=== PATIENT | male | born 1965 | race African-American/Black ===

== ENCOUNTER 2019-07-17 22:00 | Emergency (ER) | payer BC ==
[2019-07-17 22:10] VITALS: TEMP 98.6; BMI 34.9
[2019-07-17] MEDS ORDERED: SODIUM CHLORIDE 1,000 ML IV STA (22:31)
--- NOTE | 2019-07-17 22:43 | PDOC ---
History of Present Illness - General Chief Complaint: Pain Stated Complaint: ABD PAIN Time Seen by Provider: 07/17/19 22:18 History Source: Patient Exam Limitations: No Limitations Past History - Past Medical History Allergies/Adverse Reactions: Allergies Allergy/AdvReac Type Severity Reaction Status Date / Time No Known Allergies Allergy Verified 07/17/19 22:10 COPD: No Diabetes: Yes HTN: Yes - Surgical History Appendectomy: Yes - Psycho Social/Smoking Cessation Hx Smoking History: Never smoked *Physical Exam - Vital Signs Last Vital Signs Temp Pulse Resp BP Pulse Ox 98.6 F 63 18 138/72 98 07/17/19 22:08 07/17/19 22:08 07/17/19 22:08 07/17/19 22:08 07/17/19 22:08 - Physical Exam General Appearance: No: Apparent Distress Respiratory/Chest: positive: Lungs Clear, Normal Breath Sounds. negative: Respiratory Distress Cardiovascular: positive: Regular Rhythm, Regular Rate, S1, S2. negative: Murmur Gastrointestinal/Abdominal: positive: Normal Bowel Sounds, Soft. negative: Tender, Distended, Guarding, Rebound Musculoskeletal: negative: CVA Tenderness Neurologic: positive: Alert ED Treatment Course - LABORATORY CBC & Chemistry Diagram: 07/17/19 23:15 07/17/19 23:15 - RADIOLOGY Radiology Studies Ordered: Category Date Time Status SPIRAL- RENAL-STONE CT [CT] Stat CT Scan 07/17/19 22:31 Ordered Medical Decision Making - Medical Decision Making 54-year-old male history of hypertension, hyperlipidemia, diabetes presents with RLQ abd pain (more along the lateral side) from today along with 2 episodes of NBNB emesis. Patient mentions he had 1-2 episodes of watery diarrhea yesterday. Today he had a little soft stool. Patient mentions he is feeling a little under the weather 4 days ago and saw his PCP to request replacement azithromycin. Today was the last dose of the antibiotic. Patient states he did not come earlier as he thought his symptoms were related to the antibiotic. However states abdominal pain is getting worse. Denies fever, shortness of breath, chest pain, dysuria, hematuria, testicular pain. Surgical history includes appendectomy Consider kidney stone Plan: Labs, IVF, spiral CT 07/17/19 22:38 Abnormal Lab Results 07/17/19 07/18/19 23:15 00:01 Anion Gap 5 L Random Glucose 115 H Total Bilirubin 1.1 H AST 133 H ALT 122 H Urine Protein 3+ H Urine Ketones Trace H Urine Blood 2+ H Labs were reviewed Slightly elevated liver enzymes noted Urine negative for infection with some trace blood noted CT showed no evidence of kidney stones; it showed normal liver; it also showed questionable gallbladder wall thickening However on exam patient with no right upper quadrant pain Patient feeling much better right now with no abdominal pain Patient advised to follow-up with his PCP regarding his liver enzymes Stable for discharge 07/18/19 01:05 Discharge - Discharge Information Problems reviewed: Yes Clinical Impression/Diagnosis: Abdominal pain Qualifiers: Abdominal location: right lower quadrant Qualified Code(s): R10.31 - Right lower quadrant pain Condition: Stable Disposition: HOME - Admission No - Additional Discharge Information Prescription Drug Monitoring Program (I-STOP) results: I-STOP not reviewed - Follow up/Referral - Patient Discharge Instructions Patient Printed Discharge Instructions: DI for Abdominal Pain-Adult Additional Instructions: Thank you for choosing [facility]. It was a pleasure taking care of you. Your lab work shows that your liver enzymes were slightly elevated Recommend refraining from drinking alcohol Be sure to follow-up with your doctor in 2 to 3 days as well Return to the Emergency Department if your symptoms worsen or persist or have other concerning symptoms. - Post Discharge Activity Work/Back to School Note: Back to Work
[2019-07-17] MEDS ORDERED: KETOROLAC TROMETHAMINE 30 MG/1 ML VIAL IVPUSH ONE (23:05)
[2019-07-17] MEDS ORDERED: KETOROLAC TROMETHAMINE 30 MG/1 ML VIAL ONE (23:15)
[2019-07-17 23:53] LABS: BASO % 0.7 % (0-2.0); EOS % 0.2 % (0-4.5); HEMATOCRIT 37.9 % (35.4-49); MCHC 34.2 g/dl (32.0-35.9); MEAN PLT VOLUME 8.8 fl (7.5-11.1); NEUT % 71.1 % (42.8-82.8); PLATELET COUNT 180 K/MM3 (134-434); RBC 4.46 M/mm3 (4.00-5.60); RDW 13.8 % (11.9-15.9); WHITE BLOOD COUNT 8.1 K/mm3 (4.0-10.0)
[2019-07-18] MEDS ORDERED: ONDANSETRON 4 MG/2 ML VIAL IVPUSH ONE (00:01)
[2019-07-18] MEDS ORDERED: ONDANSETRON 4 MG/2 ML VIAL ONE (00:22)
[2019-07-18 00:37] LABS: ALBUMIN 3.8 g/dl (3.4-5.0); BILIRUBIN,TOTAL 1.1 mg/dL (0.2-1); BLOOD UREA NITROGEN 11.8 mg/dL (7-18); CALCIUM 9.1 mg/dL (8.5-10.1); CREATININE 0.9 mg/dL (0.55-1.3); POTASSIUM 4.2 mmol/L (3.5-5.1); TOT PROT 7.4 g/dl (6.4-8.2)
[2019-07-18 00:40] LABS: EPI CELLS 3.9 /HPF (0-5/HPF); HYALINE CASTS 15 /lpf (0-8); PH,URINE 5.5 (5.0-8.0); URINE APPEARANCE CLEAR; URINE BACTERIA 2.1 /hpf (NEGATIVE); URINE BILIRUBIN NEGATIVE (NEGATIVE); URINE COLOR DK YELLOW; URINE GLUCOSE (UA) NEGATIVE (NEGATIVE); URINE KETONE TRACE (NEGATIVE); URINE LEUK ESTERASE NEGATIVE (NEGATIVE); URINE NITRITE NEGATIVE (NEGATIVE); URINE PROTEIN 3+ (NEGATIVE); URINE RBC 3 /hpf (0-4); URINE WBC 4 /hpf (0-5)
[2019-07-18 01:22] VITALS: BP 131/67; PULSE 68
== END 2019-07-18 01:19 | disposition home or self-care (01) ==
LOC: JER 22:00
PROC: 3E033GC Introduction of Other Therapeutic Substance into Peripheral Vein, Percutaneous Approach (ICD-10-PCS; principal; 2019-07-17)
DX: R10.31 Right lower quadrant pain (principal); I10 Essential (primary) hypertension; E11.9 Type 2 diabetes mellitus without complications; E78.5 Hyperlipidemia, unspecified
CPT/HCPCS: 36415; 74176-TC; 80053; 81003; 85025; 87086; 99285-25; J7030

== ENCOUNTER 2019-07-18 19:04 | Inpatient (IN) | payer BC ==
--- NOTE | 2019-07-18 19:53 | PDOC ---
History of Present Illness - General Chief Complaint: Pain Stated Complaint: ABDOMINAL PAIN Time Seen by Provider: 07/18/19 19:45 - History of Present Illness Initial Comments: 07/18/19 19:53 54 y/o male with abdominal pain for 3 days. Pain is pressure like, localized to his B/L lower quadrants and 15/10. No radiation to genitals. No change in symptoms w/PO intake. One episode of NBNB emesis earlier today. Last BM was this morning and was watery, non-bloody. No fevers/chills. No known contact with similar symptoms. H/o Zpack for viral URI like symptoms earlier this week As per EMR patient evaluated in fast track for abdominal pain + emesis. Spiral CT negative for nephrolithiasis Past History - Past Medical History Allergies/Adverse Reactions: Allergies Allergy/AdvReac Type Severity Reaction Status Date / Time No Known Allergies Allergy Verified 07/18/19 19:08 Home Medications: Ambulatory Orders Atorvastatin Ca [Lipitor] 10 mg PO HS 07/18/19 Glipizide [Glipizide ER] 10 mg PO BID 07/18/19 Insulin Glargine,Hum.rec.anlog [Lantus Solostar PEN (NF)] 0 units SQ HS Lisinopril [Prinivil] 10 mg PO DAILY 07/18/19 COPD: No Diabetes: Yes HTN: Yes - Surgical History Appendectomy: Yes - Psycho Social/Smoking Cessation Hx Smoking History: Never smoked Review of Systems - Review of Systems Constitutional: No: Chills, Fever Respiratory: No: Cough, Shortness of Breath, Wheezing Cardiac (ROS): No: Chest Pain, Lightheadedness, Palpitations, Syncope ABD/GI: Yes: Diarrhea, Nausea, Vomiting, Abdominal cramping. No: Constipated *Physical Exam - Vital Signs Last Vital Signs Temp Pulse Resp BP Pulse Ox 97.7 F 89 18 149/85 98 07/18/19 19:05 07/18/19 19:05 07/18/19 19:05 07/18/19 19:05 07/18/19 19:05 - Physical Exam General Appearance: Yes: Nourished, Appropriately Dressed HEENT: positive: Normal Voice, Hearing Grossly Normal Neck: positive: Trachea midline, Supple Respiratory/Chest: positive: Lungs Clear, Normal Breath Sounds Gastrointestinal/Abdominal: positive: Normal Bowel Sounds, Soft. negative: Guarding, Rebound, Tenderness, Hernia, Mass Male Genitalia: negative: testicular tenderness, CVAT Musculoskeletal: negative: CVA Tenderness (R), CVA Tenderness (L) Extremity: positive: Normal Capillary Refill, Normal Inspection Integumentary: positive: Normal Color, Dry, Warm Neurologic: positive: Fully Oriented, Alert ED Treatment Course - LABORATORY CBC & Chemistry Diagram: 07/18/19 20:45 07/18/19 20:45 Medical Decision Making - Medical Decision Making 07/18/19 20:32 54 y/o male with persistent abdominal pain, one watery BM and solo episode of NBNB emesis VS unremarkable H/o elevated LFT's - AST 119, ALT 114, normal Alk Phos Will evaluate for r/o ACS, bilary colic, pancreatitis, viral gastroenteritis. 07/18/19 21:17 Bedside U/S shows contracted GB 07/18/19 21:37 EKG shows AFib w/o RVR, and RBB - no previous EKG in EMR Troponin (-) x1 Clinical concern for mesenteric ischemia - pain out of proportion to exam 07/18/19 22:08 Case d/w Dr. Thomas (PGY-1) will admit; ? CTA for mesenteric ischemia pending attending evaluation Clinical Impression: new onset AFib, ? mesenteric ischemia Discharge - Discharge Information Problems reviewed: Yes Clinical Impression/Diagnosis: Abdominal pain Condition: Fair Disposition: HOME - Admission Yes - Follow up/Referral - Patient Discharge Instructions - Post Discharge Activity
[2019-07-18] MEDS ORDERED: SODIUM CHLORIDE 0.9% 500 ML INFUS.BAG IV ONE (19:56)
[2019-07-18] MEDS ORDERED: ACETAMINOPHEN 1000 MG/100 ML VIAL (NON FORMULARY) IVPB ONE (19:56)
[2019-07-18] MEDS ORDERED: MAG HYDROX/AL HYDROX/SIMETH -MYLANTA- ORAL SUSPENSION PO ONE (19:57)
[2019-07-18] MEDS ORDERED: FAMOTIDINE 20 MG/50 ML IVPB 20 MG/50 ML MG IVPB ONE ×2 (19:57→20:35)
--- NOTE | 2019-07-18 19:58 | PDOC ---
Attending Attestation - Resident Resident Name: Tomas Ugarte - ED Attending Attestation I have performed the following: I have examined & evaluated the patient, The case was reviewed & discussed with the resident, I agree w/resident's findings & plan - HPI HPI: 07/18/19 20:29 Last Thurs flank pain radiating around the belly; started after taking a zpak that his doc gave him Pain continues. He was here yesterday Normal labs and CT scan; only elevated AST/ALT and a slight elevateion of T bili returns with 07/18/19 20:32 Had a normal BM today. Ate today, but he vomited. Denies taking new meds PSHx appy - Physicial Exam PE: 07/18/19 20:31 Pt is afebrile mild distress. epigastric pressure. decreased bowel sounds no flank pain no suprapubic pain clear lungs heart irregularly irreg neuro intact - Medical Decision Making 07/18/19 22:57 Pt has likely MA/heart injury from his afib He has +trop and CK MD; though CKindex is low Pt will be treated with lovenox. asa, plavix. Admit tele 07/18/19 23:00 Cardio consult in the AM 07/19/19 00:15 Patient Name: COREEN ARREDONDO THIS IS A PRELIMINARY REPORT FROM [facility] EXAM: Ultrasound Abdomen Complete IMAGES: 43 EXAM DATE AND TIME: 2019-07-18 22:09:02 HISTORY: Cholecystitis. COMPARISON: None FINDINGS: There is no sonographic Haskins's sign, or evidence of pericholecystic fluid. The gallbladder appears normal in size and contour. The gallbladder wall is normal in thickness, measuring 3.8 mm. There is no evidence of cholelithiasis, sludge or polyp. The common bile duct is normal in diameter, measuring 4.9 mm in diameter. The liver is normal in size, measuring 16.1 cm. The hepatic parenchyma exhibits diffuse increased echogenicity suggesting diffuse fatty infiltration. The pancreatic head and body appear normal in size, contour and echotexture. The right kidney is normal in size, cortical thickness, and contour, without evidence of hydronephrosis, and measures 11.8 x 6.0 x 5.8 cm. There is a cyst in the right kidney measuring 1.3 cm in diameter. The aorta is normal in caliber, with a widest diameter of 1.9 cm. IMPRESSION: Diffuse hepatic steatosis. Mild gallbladder wall thickening. No evidence of cholelithiasis. Negative sonographic Haskins sign 07/19/19 00:47 CXR WNL Heart Score/ECG Review - ECG Intrepretation Rhythm: Irregularly Irregular (NEW ONSET AFIB)
--- NOTE | 2019-07-18 20:12 | PDOC ---
History of Present Illness - General Chief Complaint: Pain Stated Complaint: ABDOMINAL PAIN Time Seen by Provider: 07/18/19 19:45 History Source: Patient Past History - Past Medical History Allergies/Adverse Reactions: Allergies Allergy/AdvReac Type Severity Reaction Status Date / Time No Known Allergies Allergy Verified 07/18/19 19:08 COPD: No Diabetes: Yes HTN: Yes - Surgical History Appendectomy: Yes - Psycho Social/Smoking Cessation Hx Smoking History: Never smoked *Physical Exam - Vital Signs Last Vital Signs Temp Pulse Resp BP Pulse Ox 97.7 F 89 18 149/85 98 07/18/19 19:05 07/18/19 19:05 07/18/19 19:05 07/18/19 19:05 07/18/19 19:05 Discharge - Follow up/Referral Referrals: Akin Becerra MD [Primary Care Provider] - - Patient Discharge Instructions - Post Discharge Activity
[2019-07-18] MEDS ORDERED: morphine CARPU-JECT 2 MG/1 ML DISP.SYRIN IVPUSH ONE ×2 (20:31→23:39)
[2019-07-18] MEDS ORDERED: MAG HYDROX/AL HYDROX/SIMETH 30 ML UNIT-DOSE CUP ONE (20:34)
[2019-07-18] MEDS ORDERED: MORPHINE SULFATE 2 MG/ML VIAL ONE ×2 (20:34→23:44)
[2019-07-18] MEDS ORDERED: ACETAMINOPHEN INJECTION 100 ML IVPB ONE (20:34)
[2019-07-18] MEDS ORDERED: ONDANSETRON 4 MG/2 ML VIAL IVPB ONE (20:48)
[2019-07-18] MEDS ORDERED: ONDANSETRON 4 MG/2 ML VIAL ONE (20:50)
[2019-07-18 20:55] LABS: BASO % 0.3 % (0-2.0); HEMATOCRIT 40.7 % (35.4-49); HEMOGLOBIN 13.7 GM/dL (11.7-16.9); LYMPH % 7.8 % (8-40); MCH 28.6 pg (25.7-33.7); MCHC 33.6 g/dl (32.0-35.9); MEAN CELL VOLUME 85.2 fl (80-96); MEAN PLT VOLUME 8.4 fl (7.5-11.1); NEUT % 82.9 % (42.8-82.8); PLATELET COUNT 202 K/MM3 (134-434); RBC 4.77 M/mm3 (4.00-5.60); RDW 13.8 % (11.9-15.9); WHITE BLOOD COUNT 12.5 K/mm3 (4.0-10.0)
[2019-07-18 21:29] LABS: ALBUMIN 3.6 g/dl (3.4-5.0); BILIRUBIN,TOTAL 1.2 mg/dL (0.2-1); BLOOD UREA NITROGEN 13.2 mg/dL (7-18); CALCIUM 8.6 mg/dL (8.5-10.1); CREATININE 1.1 mg/dL (0.55-1.3); POTASSIUM 3.6 mmol/L (3.5-5.1); TOT PROT 7.4 g/dl (6.4-8.2)
[2019-07-18] MEDS ORDERED: ENOXAPARIN NA (PORCINE) 100 MG/1 ML DISP.SYRIN SQ ONE ×2 (22:54→23:24)
[2019-07-18] MEDS ORDERED: CLOPIDOGREL BISULFATE 300 MG TABLET PO ONE (22:55)
[2019-07-18] MEDS ORDERED: ASPIRIN 81 MG CHEWABLE TABLETS PO ONE (22:55)
--- NOTE | 2019-07-18 23:02 | HP ---
CHIEF COMPLAINT: PCP: HISTORY OF PRESENT ILLNESS: 54 yo M PMH of HTN, DM , Hx of cocaine abuse, presents to ED for 03/05 RLQ pain which radiates to LLQ. pt states that this pain began 2 days ago and has been constant. Pt came to the ED yesterday and was discharged and states that the pain worsened since then. pt states that he also has associated nausea, vomiting 1 x yesterday and 1 x today. pt states this never happened in the past. Pt states that when symptoms began he was having a BM. denies hematochezia or cruz na. denies hematemesis. ER course was notable for: (1) U/S (2) (3) Recent Travel:denies PAST MEDICAL HISTORY: see HPI PAST SURGICAL HISTORY: appendectomy Social History: Smoking:denies Alcohol:denies Drugs: cocaine: last use in early . Allergies No Known Allergies Allergy (Verified 07/18/19 19:08) HOME MEDICATIONS: Home Medications Medication Instructions Recorded Atorvastatin Ca [Lipitor] 10 mg PO HS 07/18/19 Glipizide [Glipizide ER] 10 mg PO BID 07/18/19 Insulin Glargine,Hum.rec.anlog 0 units SQ HS 07/18/19 [Lantus Solostar PEN (NF)] Lisinopril [Prinivil] 10 mg PO DAILY 07/18/19 REVIEW OF SYSTEMS CONSTITUTIONAL: Absent: fever, chills, diaphoresis, generalized weakness, malaise, loss of appetite, weight change HEENT: Absent: rhinorrhea, nasal congestion, throat pain, throat swelling, difficulty swallowing, mouth swelling, ear pain, eye pain, visual changes CARDIOVASCULAR: Absent: chest pain, syncope, palpitations, irregular heart rate, lightheadedness, peripheral edema RESPIRATORY: Absent: cough, shortness of breath, dyspnea with exertion, orthopnea, wheezing, stridor, hemoptysis GASTROINTESTINAL: Absent: abdominal pain, abdominal distension, nausea, vomiting, diarrhea, constipation, melena, hematochezia GENITOURINARY: Absent: dysuria, frequency, urgency, hesitancy, hematuria, flank pain, genital pain MUSCULOSKELETAL: Absent: myalgia, arthralgia, joint swelling, back pain, neck pain SKIN: Absent: rash, itching, pallor HEMATOLOGIC/IMMUNOLOGIC: Absent: easy bleeding, easy bruising, lymphadenopathy, frequent infections ENDOCRINE: Absent: unexplained weight gain, unexplained weight loss, heat intolerance, cold intolerance NEUROLOGIC: Absent: headache, focal weakness or paresthesias, dizziness, unsteady gait, seizure, mental status changes, bladder or bowel incontinence PSYCHIATRIC: Absent: anxiety, depression, suicidal or homicidal ideation, hallucinations. PHYSICAL EXAMINATION Vital Signs - 24 hr 07/18/19 07/18/19 19:05 20:47 Temperature 97.7 F Pulse Rate 89 Pulse Rate [ 86 Left Radial] Respiratory 18 Rate Blood Pressure 149/85 Blood Pressure 122/70 [Right Arm] O2 Sat by Pulse 98 Oximetry (%) GENERAL: Awake, alert, and fully oriented, in no acute distress. HEAD: Normal with no signs of trauma. EYES: Pupils equal, round and reactive to light, extraocular movements intact EARS, NOSE, THROAT: oropharynx clear without exudates. Moist mucous membranes. NECK: supple without lymphadenopathy. + JVD LUNGS: Breath sounds equal, clear to auscultation bilaterally. No wheezes, and no crackles. No accessory muscle use. HEART: irregularly irregular, + S1 and S2 ABDOMEN: Soft, nontender, not distended, normoactive bowel sounds, no guarding, no rebound MUSCULOSKELETAL: No CVA tenderness. UPPER EXTREMITIES: 2+ pulses, warm, well-perfused. No cyanosis. No clubbing. No peripheral edema. LOWER EXTREMITIES: 2+ pulses, warm, well-perfused. No calf tenderness. No peripheral edema. NEUROLOGICAL: Cranial nerves II-XII intact. Normal speech. Normal gait. SKIN: Warm, dry, normal turgor, no rashes or lesions noted, normal capillary refill. Laboratory Results - last 24 hr 07/18/19 07/18/19 20:45 20:45 WBC 12.5 H RBC 4.77 Hgb 13.7 Hct 40.7 MCV 85.2 MCH 28.6 MCHC 33.6 RDW 13.8 Plt Count 202 MPV 8.4 Absolute Neuts (auto) 10.3 H Neutrophils % 82.9 H Lymphocytes % 7.8 L D Monocytes % 9.0 Eosinophils % 0.0 D Basophils % 0.3 Nucleated RBC % 0 Sodium 138 Potassium 3.6 Chloride 104 Carbon Dioxide 28 Anion Gap 6 L BUN 13.2 Creatinine 1.1 Est GFR (CKD-EPI)AfAm 86.52 Est GFR (CKD-EPI)NonAf 74.65 Random Glucose 160 H Calcium 8.6 Total Bilirubin 1.2 H AST 119 H ALT 114 H Alkaline Phosphatase 69 Creatine Kinase 870 H Creatine Kinase Index 0.9 CK-MB (CK-2) 8.0 H Troponin I 0.06 H Total Protein 7.4 Albumin 3.6 Lipase 46 L U/S RUQ: There is no sonographic Haskins's sign, or evidence of pericholecystic fluid. The gallbladder appears normal in size and contour. The gallbladder wall is normal in thickness, measuring 3.8 mm. There is no evidence of cholelithiasis, sludge or polyp. The common bile duct is normal in diameter, measuring 4.9 mm in diameter. The liver is normal in size, measuring 16.1 cm. The hepatic parenchyma exhibits diffuse increased echogenicity suggesting diffuse fatty infiltration. The pancreatic head and body appear normal in size, contour and echotexture. The right kidney is normal in size, cortical thickness, and contour, without evidence of hydronephrosis, and measures 11.8 x 6.0 x 5.8 cm. There is a cyst in the right kidney measuring 1.3 cm in diameter ASSESSMENT/PLAN: 54 yo M PMH of HTN, DM , Hx of cocaine abuse, presents to ED for 10/10 RLQ pain which radiates to LLQ. Pt is admitted for new onset Afib and abdominal pain Abdominal pain RUQ u/s reviewed, no cholelithiasis, negative sonographic haskins sign. diffuse hepatic steatosis Spiral CT yesterday negative for acute pathology , negative for stone pending U tox, alcohol level -UA 2+ blood, 3+protein -Lipase 46 - compazine for nausea Transaminitis - pending Hep Serologies - RUQ u/s shows hepatic steatosis - downtrending from yesterday - no cholelithiaisis or murphys - continue to monitor - lactate wnl Afib , new onset ? - Lovenox 100 q12 - cardiac monitoring -Echo -TSH -UTox - cardio consult, Dr. Davis - 1ST Trop 0.06, pending second troponin HTN - c/w home lisinopril DM - ISS , BGM DVT ppx: Lovenox 100 q12 Dispo: tele Visit type - Emergency Visit Emergency Visit: No - New Patient This patient is new to me today: Yes - Critical Care Critical Care patient: No ATTENDING PHYSICIAN STATEMENT I saw and evaluated the patient. I reviewed the resident's note and discussed the case with the resident. I agree with the resident's findings and plan as documented. SUBJECTIVE: OBJECTIVE: ASSESSMENT AND PLAN:
[2019-07-18] MEDS ORDERED: PANTOPRAZOLE SODIUM 40 MG VIAL IVPUSH ONE (23:04)
[2019-07-18] MEDS ORDERED: CLOPIDOGREL BISULFATE 300 MG TABLET ONE (23:23)
[2019-07-18] MEDS ORDERED: ASPIRIN 81 MG CHEWABLE TABLETS ONE (23:23)
[2019-07-19 00:04] LABS: INR 1.44 (0.83-1.09)
[2019-07-19] MEDS ORDERED: METOCLOPRAMIDE HCL INJECTION 10 MG/2 ML VIAL IVPUSH ONE (00:16)
[2019-07-19] MEDS ORDERED: METOCLOPRAMIDE HCL INJECTION 10 MG/2 ML VIAL ONE (00:28)
[2019-07-19] MEDS ORDERED: MELATONIN 5 MG TABLETS PO ONE (01:50)
[2019-07-19] MEDS ORDERED: PROCHLORPERAZINE MALEATE 5 MG TABLET PO PRN (01:50)
--- NOTE | 2019-07-19 02:36 | PN ---
Teaching Attending Note Name of Resident: Debi Thomas ATTENDING PHYSICIAN STATEMENT I saw and evaluated the patient. I reviewed the resident's note and discussed the case with the resident. I agree with the resident's findings and plan as documented. SUBJECTIVE: 54-year-old man with history of hypertension, diabetes mellitus abusecocaine abuse complaining of 2 days of bilateral lower quadrant abdominal pain. Was seen in the ED the day prior and was discharged home. Patient complains also of nausea, nonbloody vomiting for that time. Denied any significant diarrhea. OBJECTIVE: Last Vital Signs Temp Pulse Resp BP Pulse Ox 97.7 F 78 18 158/87 99 07/18/19 19:05 07/18/19 23:49 07/18/19 23:49 07/18/19 23:49 07/18/19 23:49 On physical exam patient was a morbidly obese male who appears uncomfortable however nontoxic. Moist oral mucosa, no head trauma, sclera nonicteric. Neck with no JVD, supple. Chest clear to rotation bilaterally, heart sounds are S1, S2 regular rate and rhythm. Abdomen was obese nontender, soft. No rashes were noted, no lower extremity pedal edema Abnormal Lab Results 07/18/19 07/18/19 07/18/19 20:45 20:45 23:40 WBC 12.5 H Absolute Neuts (auto) 10.3 H Neutrophils % 82.9 H Lymphocytes % 7.8 L D PT with INR 17.00 H INR 1.44 H Anion Gap 6 L Random Glucose 160 H Total Bilirubin 1.2 H AST 119 H ALT 114 H Creatine Kinase 870 H CK-MB (CK-2) 8.0 H Troponin I 0.06 H Lipase 46 L Imaging studies reviewedCT of abdomen pelvis from 07/18/2019 showed no evidence of urinary tract calculi, obstructive uropathy or acute pathology within the abdomen or pelvis. Right upper quadrant ultrasound from 07/18/2019 showed hepato -steatosis however no cholelithiasis, negative sonographic Haskins sign. EKG showed atrial fibrillation with no acute ischemic changes Assessment and plan 54-year-old male with new onset atrial fibrillation. Do not suspect ACS at this time as patient is not having any chest pain. Troponin leak is likely from atrial fibrillation. Admit to telemetry Cardiology consult Transthoracic echo TSH Trend troponin Urine toxicology screenrule out cocaine intoxication which may induce arrhythmias Start on anticoagulationLovenox was given Send EtOH level #Abdominal painno organic cause was identified. Imaging showed hepato- steatosis, transaminitis present on chemistry which may be Ruby however should rule out other causes such as viral hepatitis, EtOH induced liver disease, Tylenol intoxication Send to EtOH level Send Tylenol level Send hepatitis A, B, C serologies Trend hepatic panel Protonix Zofran for nausea and vomiting Avoid hepatotoxic medications #Leukocytosismay be possibly from gastroenteritis as patient is having abdominal pain Would observe off of antibiotics at this time IV fluid hydration Repeat CBC DVT prophylaxison Lovenox for atrial fibrillation
[2019-07-19] MEDS ORDERED: PROCHLORPERAZINE MALEATE 5 MG TABLET ONE (02:46)
[2019-07-19] MEDS ORDERED: MELATONIN 5 MG TABLETS ONE (02:46)
[2019-07-19 04:35] LABS: COCAINE, UR NEGATIVE ng/ml (CUTOFF=300); METHADONE, UR NEGATIVE ng/ml (CUTOFF=300); PHENCYCLIDINE,URINE NEGATIVE ng/ml (CUTOFF=25); URINE AMPHETAMINES NEGATIVE ng/ml (CUTOFF=500); URINE BARBITURATES NEGATIVE ng/ml (CUTOFF=200); URINE BENZODIAZEPINES NEGATIVE ng/ml (CUTOFF=200)
[2019-07-19 04:46] LABS: OPIATES, URI POSITIVE ng/ml (CUTOFF=300)
[2019-07-19] MEDS ORDERED: morphine CARPU-JECT 2 MG/1 ML DISP.SYRIN IVPUSH ONE (05:46)
[2019-07-19] MEDS ORDERED: MORPHINE SULFATE 2 MG/ML VIAL IVPUSH PRN (05:47)
[2019-07-19] MEDS ORDERED: MORPHINE SULFATE 2 MG/ML VIAL ONE ×4 (06:12→23:02)
[2019-07-19] MEDS: SODIUM CHLORIDE 1,000 ML IV SCH ×2 (06:20→18:33)
[2019-07-19 06:41] LABS: BASO % 0.2 % (0-2.0); HEMOGLOBIN 13.4 GM/dL (11.7-16.9); LYMPH % 10.8 % (8-40); MCH 28.9 pg (25.7-33.7); MCHC 34.4 g/dl (32.0-35.9); MEAN PLT VOLUME 8.2 fl (7.5-11.1); MONO % 10.7 % (3.8-10.2); NEUT % 78.3 % (42.8-82.8); PLATELET COUNT 195 K/MM3 (134-434); RBC 4.64 M/mm3 (4.00-5.60); RDW 13.8 % (11.9-15.9); WHITE BLOOD COUNT 11.4 K/mm3 (4.0-10.0)
[2019-07-19 07:13] LABS: ALBUMIN 3.3 g/dl (3.4-5.0); BILIRUBIN,DIRECT 0.4 mg/dL (0.0-0.2); BILIRUBIN,TOTAL 1.3 mg/dL (0.2-1); TOT PROT 7.1 g/dl (6.4-8.2)
[2019-07-19 07:17] LABS: ALBUMIN 3.3 g/dl (3.4-5.0); BILIRUBIN,TOTAL 1.2 mg/dL (0.2-1); CALCIUM 8.1 mg/dL (8.5-10.1); MAGNESIUM 1.7 mg/dL (1.8-2.4); PHOSPHOROUS 3.4 mg/dL (2.5-4.9); POTASSIUM 3.4 mmol/L (3.5-5.1)
--- NOTE | 2019-07-19 08:53 | PN ---
Progress Note, Physician Chief Complaint: Patient complaint of abdominal pain History of Present Illness: 54-year-old man history of hypertension, ex-cocaine abuse presented with lower abdominal pain, in the EKG work-up shows new onset A. fib with RVR put on full anticoagulation, patient still complaint of abdominal pain. - Current Medication List Current Medications: Active Medications Active Medications Atorvastatin Calcium (Lipitor -) 10 mg PO HS [facility] Enoxaparin Sodium (Lovenox -) 100 mg SQ BID [facility] Last Admin: 07/19/19 10:25 Dose: 100 mg Sodium Chloride (Normal Saline -) 1,000 mls @ 83 mls/hr IV ASDIR [facility] Last Admin: 07/19/19 06:20 Dose: 83 mls/hr Insulin Aspart (Novolog Vial Sliding Scale -) 1 vial SQ ACHS [facility]; Protocol Lisinopril (Prinivil) 10 mg PO DAILY [facility] Last Admin: 07/19/19 10:26 Dose: 10 mg Morphine Sulfate (Morphine Sulfate) 2 mg IVPUSH Q6H PRN PRN Reason: PAIN LEVEL 6-10 Last Admin: 07/19/19 11:09 Dose: 2 mg Morphine Sulfate (Morphine Injection -) 4 mg IM Q6H PRN PRN Reason: PAIN LEVEL 6-10 Ondansetron HCl (Zofran Injection) 4 mg IVPUSH Q6H PRN PRN Reason: NAUSEA Last Admin: 07/19/19 11:11 Dose: 4 mg Prochlorperazine Maleate (Compazine -) 5 mg PO Q4H PRN PRN Reason: NAUSEA AND/OR VOMITING Last Admin: 07/19/19 03:00 Dose: 5 mg - Objective Vital Signs: Vital Signs Temperature 97.9 F 07/19/19 07:03 Pulse Rate 88 07/19/19 07:03 Respiratory Rate 16 07/19/19 07:03 Blood Pressure 142/92 07/19/19 07:03 O2 Sat by Pulse Oximetry (%) 98 07/19/19 07:03 General: Young man, obese comfortable, not in distress HEENT; mucous membranes moist, no anemia, no jaundice, PERRLA, no nystagmus Neck: No JVD, supple, no bruit, thyroid palpably normal, normal carotid pulsations. Chest: Nontender, clear to auscultation bilaterally CVS: S1-S2 regular no murmur/gallop/rub Abdomen: soft, bowel sounds present mild lower abdominal tenderness no rebound or guarding.. Extremities: No edema., No cough tenderness, pulses present [employer]: AO X3 , no gross motor sensory deficit CBC, BMP 07/19/19 06:00 07/19/19 06:00 CT abdomen: Multiple bilateral renal infarct, and large splenic infarct Labs: CBC, BMP 07/19/19 06:00 07/19/19 06:00 INR, PTT INR 1.44 (0.83-1.09) H 07/18/19 23:40 Problem List - Problems (1) New onset atrial fibrillation Assessment/Plan: New onset atrial fibrillation, at present rate controlled evaluated by the cardiology, telemetry monitoring, follow-up echocardiogram, continue systemic anticoagulation, follow-up cardiology recommendations Problems reviewed: Yes Code(s): I48.91 - UNSPECIFIED ATRIAL FIBRILLATION (2) Abdominal pain Assessment/Plan: Patient presented with abdominal pain, considering high suspicion of thromboembolic injury, CT scan abdomen ordered that shows bilateral renal infarct and splenic infarct, discussed with transition mgr recommended full dose anticoagulation will continue with the Lovenox follow-up serial abdominal exam. Pain control. Liquid diet as tolerates. Problems reviewed: Yes Code(s): R10.9 - UNSPECIFIED ABDOMINAL PAIN (3) Hypertension Assessment/Plan: Continue current medications Problems reviewed: Yes Code(s): I10 - ESSENTIAL (PRIMARY) HYPERTENSION (4) Transaminitis Assessment/Plan: Follow-up serial LFTs, hepatitis panel abdominal ultrasound does not show Problems reviewed: Yes Code(s): R74.0 - NONSPEC ELEV OF LEVELS OF TRANSAMNS & LACTIC ACID DEHYDRGNSE (5) Obesity (BMI 30-39.9) Assessment/Plan: Diabetic management as an outpatient. Problems reviewed: Yes Code(s): E66.9 - OBESITY, UNSPECIFIED (6) Substance abuse Assessment/Plan: U tox is negative Problems reviewed: Yes Code(s): F19.10 - OTHER PSYCHOACTIVE SUBSTANCE ABUSE, UNCOMPLICATED (7) Hypokalemia Assessment/Plan: Repleted follow-up [facility] Problems reviewed: Yes Code(s): E87.6 - HYPOKALEMIA (8) Renal infarct Assessment/Plan: Patient has bilateral renal infarct most likely cardioembolic, also patient is splenic infarct we will switch from Lovenox to heparin and observe clinically. Problems reviewed: Yes Code(s): N28.0 - ISCHEMIA AND INFARCTION OF KIDNEY (9) Splenic infarct Assessment/Plan: Patient has last splenic infarct most likely cardiac embolic due to atrial fibrillation, discussed with her cardiology consult will switch to heparin GTT at the time of next dose of Lovenox, observe closely patient need reimaging, H& H and urgent surgery consult if develop severe abdominal pain not responding to the treatment or dropping H&H. Problems reviewed: Yes Code(s): D73.5 - INFARCTION OF SPLEEN
[2019-07-19] MEDS ORDERED: ENOXAPARIN NA (PORCINE) 100 MG/1 ML DISP.SYRIN SQ SCH (10:00)
[2019-07-19] MEDS: ENOXAPARIN NA (PORCINE) 100 MG/1 ML DISP.SYRIN SQ SCH ×2 (10:25→23:14)
[2019-07-19] MEDS: LISINOPRIL 10 MG TABLET (FP) PO SCH (10:26)
[2019-07-19] MEDS ORDERED: ONDANSETRON 4 MG/2 ML VIAL ONE ×3 (11:03→23:03)
[2019-07-19] MEDS: MORPHINE SULFATE 2 MG/ML VIAL IVPUSH PRN ×3 (11:09→23:14)
[2019-07-19] MEDS: ONDANSETRON 4 MG/2 ML VIAL IVPUSH PRN ×3 (11:11→23:14)
[2019-07-19] MEDS: POTASSIUM CHLORIDE ORAL LIQUID 20 MEQ/15 ML PO ONE ×2 (13:20→16:00)
[2019-07-19] MEDS ORDERED: POTASSIUM CHLORIDE ORAL LIQUID 20 MEQ/15 ML ONE (13:46)
--- NOTE | 2019-07-19 14:47 | CON.CARD ---
Consult Consult Specialty:: Cardiology Reason for Consultation:: Afib - History of Present Illness History of Present Illness: 54-year-old man with history of hypertension, diabetes mellitus and previous cocaine abuse was admitted with 2 days of bilateral lower quadrant abdominal pain. Noted to be in Afib . CT abdomen shows renal and splenic infarcts. He has chronic SIMMONS and occasional edema. No chest pain, palptiaitons, orthopnea or PND. - Smoking History Smoking history: Never smoked Home Medications - Allergies Allergies/Adverse Reactions: Allergies Allergy/AdvReac Type Severity Reaction Status Date / Time No Known Allergies Allergy Verified 07/18/19 19:08 - Home Medications Home Medications: Ambulatory Orders Atorvastatin Ca [Lipitor] 10 mg PO HS 07/18/19 Glipizide [Glipizide ER] 10 mg PO BID 07/18/19 Insulin Glargine,Hum.rec.anlog [Lantus Solostar PEN (NF)] 0 units SQ HS Lisinopril [Prinivil] 10 mg PO DAILY 07/18/19 Review of Systems - Review of Systems Constitutional: denies: Fever, Night Sweats Eyes: reports: No Symptoms HENT: reports: No Symptoms Neck: reports: No Symptoms Cardiovascular: reports: Edema, Shortness of Breath. denies: Chest Pain Respiratory: denies: Cough Gastrointestinal: reports: Abdominal Pain, Nausea, Vomiting Vital Signs: Vital Signs Temperature 97.9 F 07/19/19 07:03 Pulse Rate 88 07/19/19 07:03 Respiratory Rate 16 07/19/19 07:03 Blood Pressure 142/92 07/19/19 07:03 O2 Sat by Pulse Oximetry (%) 98 07/19/19 07:03 Constitutional: Yes: Well Nourished, Mild Distress Eyes: Yes: Conjunctiva Clear HENT: Yes: Atraumatic, Normocephalic Neck: Yes: Supple, Trachea Midline Respiratory: Yes: Regular, CTA Bilaterally Gastrointestinal: Yes: Normal Bowel Sounds Cardiovascular: Yes: Pulse Irregular JVD: No Carotid Bruit: No PMI: Non-Displaced Heart Sounds: Yes: S1, S2 Murmur: No: Systolic Murmur, Diastolic Murmur Edema: No - Other Data Labs, Other Data: CBC, BMP 07/19/19 06:00 07/19/19 06:00 INR, PTT INR 1.44 (0.83-1.09) H 07/18/19 23:40 Troponin, BNP 07/18/19 07/19/19 20:45 04:40 Troponin I 0.06 H 0.04 Troponin, BNP 07/18/19 07/19/19 20:45 04:40 Troponin I 0.06 H 0.04 Laboratory Tests 07/19/19 07/19/19 03:00 06:00 AST 129 H ALT 110 H Opiates Screen Positive A* Methadone Screen Negative Barbiturate Screen Negative Phencyclidine Screen Negative Ur Amphetamines Screen Negative MDMA (Ecstasy) Screen Negative Benzodiazepines Screen Negative Cocaine Screen Negative U Marijuana (THC) Screen Negative Afib LAD, RBBB Imaging - Results Chest X-ray: Report Reviewed Problem List - Problems (1) Afib Code(s): I48.91 - UNSPECIFIED ATRIAL FIBRILLATION Assessment/Plan 54 M DM, HTN with newly diagnosed Afib and admitted with abdominal pain and nausea noted to have transaminitis and renal and splenic infarcts. 1. Afib likely resulting in peripheral embolic events. HR is controlled off AV shazia agents. Echocardiogram ordered Agree with full dose systemic AC. Endocarditis is less likely but would Check blood cultures.
[2019-07-19] MEDS ORDERED: morphine SULFATE 4 MG/ML VIAL ONE (18:22)
[2019-07-19 18:30] LABS: BASO % 0.7 % (0-2.0); HEMATOCRIT 40.9 % (35.4-49); HEMOGLOBIN 13.6 GM/dL (11.7-16.9); LYMPH % 10.7 % (8-40); MCH 28.2 pg (25.7-33.7); MCHC 33.3 g/dl (32.0-35.9); MEAN CELL VOLUME 84.7 fl (80-96); MEAN PLT VOLUME 8.1 fl (7.5-11.1); MONO % 9.5 % (3.8-10.2); NEUT % 79.1 % (42.8-82.8); PLATELET COUNT 225 K/MM3 (134-434); RBC 4.83 M/mm3 (4.00-5.60); RDW 13.8 % (11.9-15.9); WHITE BLOOD COUNT 13.4 K/mm3 (4.0-10.0)
[2019-07-19] MEDS: morphine SULFATE 4 MG/ML VIAL IM PRN (18:33)
[2019-07-19 18:47] LABS: INR 1.48 (0.83-1.09); PROTHROMBIN TIME (PATIENT) 17.5 SEC (9.7-13.0)
[2019-07-19 18:50] LABS: ACTIVATED PTT 39.7 SECONDS (25.2-36.5)
--- NOTE | 2019-07-19 19:18 | CONSULT ---
Consult Consult Specialty:: General Surgery Referred by:: Rm Donald Reason for Consultation:: splenic infarct - History of Present Illness Chief Complaint: abdominal pain, N/V History of Present Illness: 54yo M with HTN, HLD, DM, s/p appendectomy, presented with abdominal and left mid-back pain, N/V. He had URI symptoms and saw his PMD (Akin Smith) Saturday , and got Rx for Z-graham, which he finished later last week. , he woke up , went to bathroom, and developed RLQ pain, which he thought would go away, but it didn't. He thought it might be related to his illness or the antibiotic at first. He also had N/V. Saturday, it was still there, and he came to ER, where noncontrast CT showed no kidney stones, and no acute findings, and his pain improved (but did not go completely away per pt), and he was d/c home. The pain then returned/continued, and moved around his abdomen, and also to his left mid- back, associated with more N/V, so he came back to ER. He was afebrile, but was found to be in atrial fibrillation, US showed no gallstones but fatty liver, and CT with contrast revealed hypoperfused areas of both kidneys and his spleen , consistent with infarcts. His LFTs are mildly elevated (not alk phos), as is his wbc. He has received IV fluids and pain meds, doses of asa/plavix, and has been started on full-dose lovenox. He is admitted to telemetry with cardio following, and surgery was asked to assess, in case of splenic bleeding on anticoagulation. He is seen and examined in ER holding, with present. He c/o pain initially , hurting "wherever he laid down on it" but the pain responds to morphine, after which he felt a bit better, and had no pain or tenderness on exam after the medication. Last BM was yesterday, loose, and he has passed gas. He states he normally takes baby asa daily at home. Was able to eat a little a couple days ago at home. - History Source History Provided By: Patient, Medical Record Limitations to Obtaining History: No Limitations - Past Medical History Cardio/Vascular: Yes: AFIB (newly diagnosed this visit), HTN, Hyperlipdemia Endocrine: Yes: Diabetes Mellitus Additional Medical History: recent URI - finished Z-graham last week - Past Surgical History Past Surgical History: Yes: Appendectomy (laparoscopic, ruptured, 2013) - Alcohol/Substance Use Hx Alcohol Use: No History of Substance Use: reports: None (has not used cocaine in over 20 years) - Smoking History Smoking history: Never smoked Have you smoked in the past 12 months: No - Social History Usual Living Arrangement: With Spouse ADL: Independent 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 Home Medications - Allergies Allergies/Adverse Reactions: Allergies Allergy/AdvReac Type Severity Reaction Status Date / Time No Known Allergies Allergy Verified 07/18/19 19:08 - Home Medications Home Medications: Ambulatory Orders Atorvastatin Ca [Lipitor] 10 mg PO HS 07/18/19 Glipizide [Glipizide ER] 10 mg PO BID 07/18/19 Insulin Glargine,Hum.rec.anlog [Lantus Solostar PEN (NF)] 0 units SQ HS Lisinopril [Prinivil] 10 mg PO DAILY 07/18/19 Home Medications (free text): also takes baby aspirin daily at home Family Medical History Family History: Unremarkable (noncontributory) Review of Systems - Review of Systems Constitutional: denies: Chills, Fever Eyes: reports: Other (glasses for night driving). denies: Recent Change in Vision HENT: reports: Other (postnasal drip, phlegm in throat) Neck: denies: Swollen Glands, Tenderness Cardiovascular: denies: Chest Pain, Palpitations Respiratory: reports: Cough (with recent URI). denies: SOB Gastrointestinal: reports: Abdominal Pain (with hpi), Diarrhea (recent loose stool), Nausea (with hpi), Vomiting (with hpi). denies: Constipation Genitourinary: denies: Burning, Dysuria Musculoskeletal: reports: Back Pain (with hpi). denies: Joint Pain, Muscle Pain Integumentary: denies: Change in Color, Rash Neurological: denies: Dizziness, Headache Physical Exam Vital Signs: Vital Signs Temperature 97.9 F 07/19/19 07:03 Pulse Rate 88 07/19/19 07:03 Respiratory Rate 16 07/19/19 07:03 Blood Pressure 142/92 07/19/19 07:03 O2 Sat by Pulse Oximetry (%) 98 07/19/19 07:03 Constitutional: Yes: Well Nourished, No Distress, Calm Eyes: Yes: Conjunctiva Clear, EOM Intact HENT: Yes: Atraumatic, Normocephalic Neck: Yes: Supple, Trachea Midline Cardiovascular: Yes: Pulse Irregular (irregularly). No: Bradycardia, Tachycardia Respiratory: Yes: Regular, CTA Bilaterally Gastrointestinal: Yes: Soft, Hypoactive Bowel Sounds. No: Distention, Tenderness ((had pain med shortly ago)), Tenderness, Epigastrium ...Rectal Exam: Yes: Deferred Renal/: No: CVA Tenderness - Left, CVA Tenderness - Right Musculoskeletal: No: Joint Stiffness, Joint Swelling Extremities: No: Cool, Cyanosis Peripheral Pulses WNL: Yes (irregular but present) Integumentary: No: Jaundice, Rash Neurological: Yes: Alert, Oriented Psychiatric: Yes: Alert, Oriented Labs: CBC, BMP 07/19/19 18:20 07/19/19 06:00 CMP Sodium 138 mmol/L (136-145) 07/19/19 06:00 Potassium 3.4 mmol/L (3.5-5.1) L 07/19/19 06:00 Chloride 104 mmol/L (98-107) 07/19/19 06:00 Carbon Dioxide 27 mmol/L (21-32) 07/19/19 06:00 Anion Gap 7 MMOL/L (8-16) L 07/19/19 06:00 BUN 12.0 mg/dL (7-18) 07/19/19 06:00 Creatinine 1.0 mg/dL (0.55-1.3) 07/19/19 06:00 Est GFR (CKD-EPI)AfAm 97.08 07/19/19 06:00 Est GFR (CKD-EPI)NonAf 83.76 07/19/19 06:00 Random Glucose 128 mg/dL (74-106) H 07/19/19 06:00 Hemoglobin A1c % 11.0 % (4.2-6.3) H 07/19/19 06:00 Lactic Acid 1.3 mmol/L (0.4-2.0) 07/19/19 01:15 Calcium 8.1 mg/dL (8.5-10.1) L 07/19/19 06:00 Phosphorus 3.4 mg/dL (2.5-4.9) 07/19/19 06:00 Magnesium 1.7 mg/dL (1.8-2.4) L 07/19/19 06:00 Total Bilirubin 1.2 mg/dL (0.2-1) H 07/19/19 06:00 Direct Bilirubin 0.4 mg/dL (0.0-0.2) H 07/19/19 06:00 AST 127 U/L (15-37) H 07/19/19 06:00 ALT 107 U/L (13-61) H 07/19/19 06:00 Alkaline Phosphatase 66 U/L (45-117) 07/19/19 06:00 Creatine Kinase 870 U/L (26-308) H 07/18/19 20:45 Creatine Kinase Index 0.9 % (0.0-5.0) 07/18/19 20:45 CK-MB (CK-2) 8.0 ng/mL (0.5-3.6) H 07/18/19 20:45 Troponin I 0.04 ng/ml (0.00-0.05) 07/19/19 04:40 Total Protein 7.0 g/dl (6.4-8.2) 07/19/19 06:00 Albumin 3.3 g/dl (3.4-5.0) L 07/19/19 06:00 Lipase 46 U/L (73-393) L 07/18/19 20:45 TSH 0.65 uIU/ml (0.358-3.74) 07/19/19 06:00 INR, PTT INR 1.48 (0.83-1.09) H 07/19/19 18:20 K was repleted orally A1C noted as high LFTs elevated a bit U tox + opiates only UA from 07/18 noted Imaging - Results Cat Scan: Report Reviewed, Image Reviewed (bilateral renal and splenic hypoperfused areas consistent with infarctions, no free fluid or free air, no obstruction) Ultrasound: Report Reviewed, Image Reviewed Problem List - Problems (1) Splenic infarct Code(s): D73.5 - INFARCTION OF SPLEEN (2) Renal infarct Code(s): N28.0 - ISCHEMIA AND INFARCTION OF KIDNEY (3) New onset atrial fibrillation Code(s): I48.91 - UNSPECIFIED ATRIAL FIBRILLATION (4) Mid back pain on left side Code(s): M54.9 - DORSALGIA, UNSPECIFIED (5) Abdominal pain Code(s): R10.9 - UNSPECIFIED ABDOMINAL PAIN Qualifiers: Abdominal location: generalized Qualified Code(s): R10.84 - Generalized abdominal pain (6) Hypertension Code(s): I10 - ESSENTIAL (PRIMARY) HYPERTENSION Qualifiers: Hypertension type: essential hypertension Qualified Code(s): I10 - Essential (primary) hypertension (7) Diabetes mellitus with hyperglycemia, with long-term current use of insulin Code(s): E11.65 - TYPE 2 DIABETES MELLITUS WITH HYPERGLYCEMIA; 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 heme? if pt has splenic bleeding on anticoagulation, would need to hold anticoagulation and monitor for tamponade by splenic capsule transfuse prn in that case, would strongly consider transfer to tertiary center Thank you for the opportunity to participate in the care of this patient.
[2019-07-19] MEDS ORDERED: ATORVASTATIN CA 10 MG TABLET (FP) ONE (23:03)
[2019-07-19] MEDS ORDERED: ENOXAPARIN NA (PORCINE) 100 MG/1 ML DISP.SYRIN SQ ONE (23:03)
[2019-07-19] MEDS ORDERED: HEPARIN NA (PORCINE) 5,000 UNITS/ML 1ML VIAL IVPUSH PRN ×2 (23:09)
[2019-07-19] MEDS: ATORVASTATIN CA 10 MG TABLET (FP) PO SCH (23:14)
[2019-07-20] MEDS ORDERED: HEPARIN INFUSION - 25,000 UNITS/500 ML INFUS.BAG IVPB ONE (00:48)
[2019-07-20] MEDS: HEPARIN - 25,000 UNIT in SODIUM CHLORIDE 495 ML IV SCH (00:57)
[2019-07-20] MEDS ORDERED: morphine SULFATE 4 MG/ML VIAL ONE ×2 (05:48→15:06)
[2019-07-20] MEDS ORDERED: ONDANSETRON 4 MG/2 ML VIAL ONE ×2 (05:48→15:30)
[2019-07-20] MEDS: morphine SULFATE 4 MG/ML VIAL IM PRN ×2 (06:16→18:39)
[2019-07-20] MEDS: ONDANSETRON 4 MG/2 ML VIAL IVPUSH PRN ×2 (06:17→15:39)
[2019-07-20 07:48] LABS: BASO % 0.2 % (0-2.0); HEMATOCRIT 38.2 % (35.4-49); HEMOGLOBIN 12.9 GM/dL (11.7-16.9); LYMPH % 5.8 % (8-40); MCH 28.5 pg (25.7-33.7); MCHC 33.8 g/dl (32.0-35.9); MEAN CELL VOLUME 84.1 fl (80-96); MEAN PLT VOLUME 8.5 fl (7.5-11.1); MONO % 12.3 % (3.8-10.2); NEUT % 81.7 % (42.8-82.8); PLATELET COUNT 230 K/MM3 (134-434); RBC 4.54 M/mm3 (4.00-5.60); RDW 13.6 % (11.9-15.9); WHITE BLOOD COUNT 15.4 K/mm3 (4.0-10.0)
[2019-07-20] MEDS: SODIUM CHLORIDE 1,000 ML IV SCH (08:30)
[2019-07-20 08:36] LABS: BILIRUBIN,TOTAL 1.2 mg/dL (0.2-1); BLOOD UREA NITROGEN 17.3 mg/dL (7-18); CALCIUM 7.8 mg/dL (8.5-10.1); CREATININE 1.1 mg/dL (0.55-1.3); POTASSIUM 3.6 mmol/L (3.5-5.1); TOT PROT 6.5 g/dl (6.4-8.2)
--- NOTE | 2019-07-20 09:48 | EKG ---
Test Reason : Blood Pressure : / mmHG Vent. Rate : 084 BPM Atrial Rate : 086 BPM P-R Int : 000 ms QRS Dur : 144 ms QT Int : 428 ms P-R-T Axes : 000 -38 -31 degrees QTc Int : 505 ms ATRIAL FIBRILLATION LEFT AXIS DEVIATION RIGHT BUNDLE BRANCH BLOCK ABNORMAL ECG NO PREVIOUS ECGS AVAILABLE Confirmed by Buster Jacob ([id number]) on 07/20/2019 9:48:13 AM Referred By: Confirmed By:Buster Jacob
--- NOTE | 2019-07-20 11:16 | ECHO ---
Name: COREEN ARREDONDO Exam:Adult Echocardiogram Study Date: 07/20/2019 10:05 AM Age: 54 yrs Reason For Study: Arthur Burgos Height: 68 in Weight: 230 lb BSA: 2.2 m2 MMode/2D Measurements & Calculations IVSd: 1.2 cm Ao root diam: 2.8 cm LVIDd: 4.0 cm LA dimension: 4.1 cm LVIDs: 2.7 cm ACS: 2.2 cm LVPWd: 0.98 cm EDV(Teich): 68.6 ml LVOT diam: 1.9 cm ESV(Teich): 25.8 ml RV S Chung: 12.7 cm/sec Doppler Measurements & Calculations MV E max chung: 112.3 cm/sec Ao V2 max: 141.6 cm/sec MV A max chung: 44.4 cm/sec Ao max P.0 mmHg MV E/A: 2.5 Ao V2 mean: 110.2 cm/sec MV dec time: 0.17 sec Ao mean P.4 mmHg Ao V2 VTI: 28.3 cm ALANNA(I,D): 1.7 cm2 ALANNA(V,D): 2.0 cm2 LV V1 max P.7 mmHg SV(LVOT): 47.9 ml LV V1 mean P.0 mmHg LV V1 max: 95.6 cm/sec LV V1 mean: 64.5 cm/sec LV V1 VTI: 16.4 cm TR max chung: 247.5 cm/sec PA V2 max: 78.0 cm/sec TR max P.2 mmHg PA max P.4 mmHg PI end-d chung: 84.2 cm/sec Med Peak E' Chung: 8.0 cm/sec Med E/e': 14.0 Lat Peak E' Chung: 12.4 cm/sec Lat E/e': 9.1 Procedure Study Quality: Fair. Left Ventricle The left ventricle is grossly normal size. There is mild concentric left ventricular hypertrophy. The left ventricular ejection fraction is normal. Ejection Fraction = 55-60%. Right Ventricle The right ventricle is normal in size and function. Atria The left atrium is severely dilated. Right atrial size is normal. Mitral Valve There is mild mitral valve thickening. There is mild mitral regurgitation. Tricuspid Valve The tricuspid valve is not well visualized, but is grossly normal. There is mild tricuspid regurgitat ion. Right ventricular systolic pressure is normal. Pulmonic Valve The pulmonic valve is not well seen, but is grossly normal. Great Vessels The aortic root is normal size. Pericardium/Pleura There is no pericardial effusion. Interpretation Summary LV: Normal size,mild LVH, normal systolic function, EF 55-60% RV: Normal LA: Severely dilated Mild mitral and tricuspid regurgitations. Buster Jacob 07/20/2019 11:15 AM
[2019-07-20 13:12] LABS: INR 1.56 (0.83-1.09); PROTHROMBIN TIME (PATIENT) 18.5 SEC (9.7-13.0)
[2019-07-20 13:15] LABS: ACTIVATED PTT 62.1 SECONDS (25.2-36.5)
[2019-07-20] MEDS: LISINOPRIL 10 MG TABLET (FP) PO SCH (13:58)
--- NOTE | 2019-07-20 16:01 | PN ---
Progress Note, Physician History of Present Illness: pt seen and examined today in nad. states he is feeling better, still having back pain. no palpitations, sob, chest pain. - Current Medication List Current Medications: Active Medications Atorvastatin Calcium (Lipitor -) 10 mg PO HS [facility] Last Admin: 07/19/19 23:14 Dose: 10 mg Heparin Sodium (Porcine) (Heparin -) 1,000 unit IVPUSH PRN PRN PRN Reason: Heparin Heparin Sodium (Porcine) (Heparin -) 5,000 unit IVPUSH PRN PRN PRN Reason: Heparin Sodium Chloride (Normal Saline -) 1,000 mls @ 83 mls/hr IV ASDIR [facility] Last Admin: 07/20/19 08:30 Dose: 83 mls/hr Sodium Chloride (Normal Saline -) 1,000 mls @ 100 mls/hr IV ASDIR [facility] Last Admin: 07/19/19 18:33 Dose: 100 mls/hr Heparin Sodium (Porcine) 25, (000 unit/ Sodium Chloride) 500 mls @ 20 mls/hr IV TITR [facility]; Protocol Last Admin: 07/20/19 00:57 Dose: 1,000 unit/hr, 20 mls/hr Insulin Aspart (Novolog Vial Sliding Scale -) 1 vial SQ ACHS [facility]; Protocol Lisinopril (Prinivil) 10 mg PO DAILY [facility] Last Admin: 07/20/19 13:58 Dose: Not Given Morphine Sulfate (Morphine Sulfate) 2 mg IVPUSH Q6H PRN PRN Reason: PAIN LEVEL 6-10 Last Admin: 07/19/19 23:14 Dose: 2 mg Morphine Sulfate (Morphine Sulfate) 4 mg IM Q6H PRN PRN Reason: PAIN LEVEL 6-10 Last Admin: 07/20/19 06:16 Dose: 4 mg Ondansetron HCl (Zofran Injection) 4 mg IVPUSH Q6H PRN PRN Reason: NAUSEA Last Admin: 07/20/19 15:39 Dose: 4 mg Prochlorperazine Maleate (Compazine -) 5 mg PO Q4H PRN PRN Reason: NAUSEA AND/OR VOMITING Last Admin: 07/19/19 03:00 Dose: 5 mg - Objective Vital Signs: Vital Signs Temperature 98.2 F 07/20/19 11:00 Pulse Rate 64 07/20/19 11:00 Respiratory Rate 18 07/20/19 11:00 Blood Pressure 131/74 07/20/19 11:00 O2 Sat by Pulse Oximetry (%) 99 07/20/19 11:01 Constitutional: Yes: No Distress, Calm Eyes: Yes: Conjunctiva Clear, EOM Intact HENT: Yes: Atraumatic, Normocephalic Neck: Yes: Supple, Trachea Midline Cardiovascular: Yes: Pulse Irregular, S1, S2. No: Regular Rate and Rhythm, Bradycardia, Tachycardia, Bruit, JVD, Gallop, Murmur, Rub, S3, S4, Varicosities Respiratory: Yes: Regular, CTA Bilaterally. No: Rales, Rhonchi, Wheezes Gastrointestinal: Yes: Normal Bowel Sounds, Soft. No: Distention, Tenderness Musculoskeletal: Yes: WNL Extremities: Yes: WNL Edema: No Peripheral Pulses WNL: Yes Peripheral Pulses: Left Doralis Pedis: 2+, Right Dorsalis Pedis: 2+ Neurological: Yes: Alert, Oriented Psychiatric: Yes: Alert, Oriented Labs: CBC, BMP 07/20/19 06:28 07/20/19 06:28 INR, PTT INR 1.56 (0.83-1.09) H 07/20/19 12:26 - ....Imaging Chest X-ray: Report Reviewed, Image Reviewed EKG: Report Reviewed, Image Reviewed Other: Report Reviewed, Image Reviewed (tele-af, hr adequate) Assessment/Plan 54 M DM, HTN with newly diagnosed Afib and admitted with abdominal pain and nausea noted to have transaminitis and renal and splenic infarcts. Afib likely resulting in peripheral embolic events. HR remains adequately controlled off AV shazia agents. Echocardiogram showed normal lvef, mild mr/tr, sev lae Agree with full dose systemic AC, receiving heparin gtt currently with plan for oral AC prior to discharge Endocarditis is less likely fup blood cultures, no evidence on echo
--- NOTE | 2019-07-20 17:32 | PN ---
Physical Exam: SUBJECTIVE: Patient seen and examined at beside, still c/o some back pain, otherwise VSS, Heparin Gtt for anticoagulation pending switch to DOAC (heme consulted). OBJECTIVE: Vital Signs Period Temp Pulse Resp BP Sys/Machado Pulse Ox Last 24 Hr 97.6 F-98.2 F 64-95 18-20 129-137/74-82 97-100 GENERAL: The patient is awake, alert, and fully oriented, in no acute distress. HEAD: Normal with no signs of trauma. EYES: PERRL, extraocular movements intact, sclera anicteric, conjunctiva clear. No ptosis. ENT: Ears normal, nares patent, oropharynx clear without exudates, moist mucous membranes. NECK: Trachea midline, full range of motion, supple. LUNGS: Breath sounds equal, clear to auscultation bilaterally, no wheezes, no crackles, no accessory muscle use. HEART: irregularly irregular, rate controlled ABDOMEN: Soft, nontender, nondistended, normoactive bowel sounds, no guarding, no rebound, no hepatosplenomegaly, no masses. EXTREMITIES: 2+ pulses, warm, well-perfused, no edema. NEUROLOGICAL: Cranial nerves II through XII grossly intact. Normal speech, gait not observed. PSYCH: Normal mood, normal affect. SKIN: Warm, dry, normal turgor, no rashes or lesions noted Laboratory Results - last 24 hr 07/19/19 07/19/19 07/19/19 06:00 18:20 18:20 WBC 13.4 H RBC 4.83 Hgb 13.6 Hct 40.9 MCV 84.7 MCH 28.2 MCHC 33.3 RDW 13.8 Plt Count 225 MPV 8.1 Absolute Neuts (auto) 10.6 H Neutrophils % 79.1 Lymphocytes % 10.7 Monocytes % 9.5 Eosinophils % 0.0 Basophils % 0.7 D Nucleated RBC % 0 PT with INR 17.50 H INR 1.48 H PTT (Actin FS) 39.7 H Sodium Potassium Chloride Carbon Dioxide Anion Gap BUN Creatinine Est GFR (CKD-EPI)AfAm Est GFR (CKD-EPI)NonAf POC Glucometer Random Glucose Calcium Total Bilirubin AST ALT Alkaline Phosphatase Total Protein Albumin Hepatitis C Ab (EIA) <0.1 Blood Type Antibody Screen 07/19/19 07/20/19 07/20/19 18:20 06:28 06:28 WBC 15.4 H RBC 4.54 Hgb 12.9 Hct 38.2 MCV 84.1 MCH 28.5 MCHC 33.8 RDW 13.6 Plt Count 230 MPV 8.5 Absolute Neuts (auto) 12.6 H Neutrophils % 81.7 Lymphocytes % 5.8 L D Monocytes % 12.3 H Eosinophils % 0.0 Basophils % 0.2 Nucleated RBC % 0 PT with INR INR PTT (Actin FS) Sodium 147 H Potassium 3.6 Chloride 112 H Carbon Dioxide 26 Anion Gap 8 BUN 17.3 Creatinine 1.1 Est GFR (CKD-EPI)AfAm 86.52 Est GFR (CKD-EPI)NonAf 74.65 POC Glucometer Random Glucose 104 Calcium 7.8 L Total Bilirubin 1.2 H AST 105 H ALT 89 H Alkaline Phosphatase 57 Total Protein 6.5 Albumin 3.0 L Hepatitis C Ab (EIA) Blood Type A POSITIVE Antibody Screen Negative 07/20/19 07/20/19 08:38 12:26 WBC RBC Hgb Hct MCV MCH MCHC RDW Plt Count MPV Absolute Neuts (auto) Neutrophils % Lymphocytes % Monocytes % Eosinophils % Basophils % Nucleated RBC % PT with INR 18.50 H INR 1.56 H PTT (Actin FS) 62.1 H Sodium Potassium Chloride Carbon Dioxide Anion Gap BUN Creatinine Est GFR (CKD-EPI)AfAm Est GFR (CKD-EPI)NonAf POC Glucometer 102 Random Glucose Calcium Total Bilirubin AST ALT Alkaline Phosphatase Total Protein Albumin Hepatitis C Ab (EIA) Blood Type Antibody Screen Active Medications Generic Name Dose Route Start Last Admin Trade Name Freq PRN Reason Stop Dose Admin Atorvastatin Calcium 10 mg 07/19/19 22:00 07/19/19 23:14 Lipitor - PO 10 mg HS ASHLEY Administration Heparin Sodium (Porcine) 1,000 unit 07/19/19 23:09 Heparin - IVPUSH PRN PRN Heparin Heparin Sodium (Porcine) 5,000 unit 07/19/19 23:09 Heparin - IVPUSH PRN PRN Heparin Sodium Chloride 1,000 mls @ 83 mls/hr 07/19/19 06:00 07/20/19 08:30 Normal Saline - IV 83 mls/hr ASDIR ASHLEY Administration Sodium Chloride 1,000 mls @ 100 mls/hr 07/19/19 18:00 07/19/19 18:33 Normal Saline - IV 100 mls/hr ASDIR ASHLEY Administration Heparin Sodium (Porcine) 25, 500 mls @ 20 mls/hr 07/19/19 23:15 07/20/19 00: 57 000 unit/ Sodium Chloride IV 1,000 unit/hr TITR ASHLEY 20 mls/hr Administration Protocol 1,000 UNIT/HR Insulin Aspart 1 vial 07/20/19 16:30 Novolog Vial Sliding Scale - SQ ACHS [facility] Protocol Lisinopril 10 mg 07/19/19 10:00 07/20/19 13:58 Prinivil PO Not Given DAILY [facility] Morphine Sulfate 2 mg 07/19/19 10:24 07/19/19 23:14 Morphine Sulfate IVPUSH 2 mg Q6H PRN Administration PAIN LEVEL 6-10 Morphine Sulfate 4 mg 07/19/19 15:43 07/20/19 06:16 Morphine Sulfate IM 4 mg Q6H PRN Administration PAIN LEVEL 6-10 Ondansetron HCl 4 mg 07/19/19 10:26 07/20/19 15:39 Zofran Injection IVPUSH 4 mg Q6H PRN Administration NAUSEA Prochlorperazine Maleate 5 mg 07/19/19 01:50 07/19/19 03:00 Compazine - PO 5 mg Q4H PRN Administration NAUSEA AND/OR VOMITING ASSESSMENT/PLAN: 54 year old AA, Male h/o HTN, T2DM , Hx of cocaine abuse, presents with 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 Patient admitted for further workup and anticoagulation. Afib with embolic infarcts Infarcts found on kidneys and large infarct in spleen, Echo with severe LAE Cont. Heparin gtt at therapeutic range, rate controlled off AV shazia blocking agents, will need to switch to DOAC due to infarct burden on spleen, consult Hematology for advice on switching to DOAC v.s. ?Warfarin (as there is an antidote in case of major splenic bleed) Cardiology consult Heme consult Transaminitis -follow Hep panel, so far HCV neg., ?cocaine induced hepatic injury advised cocaine cessation hydration, trend LFTs (improved) HTN - c/w home lisinopril DM ISS, basal insulin DVT ppx: heparin gtt tele monitoring Visit type - Emergency Visit Emergency Visit: Yes ED Registration Date: 07/18/19 Care time: The patient presented to the Emergency Department on the above date and was hospitalized for further evaluation of their emergent condition. - New Patient This patient is new to me today: No - Critical Care Critical Care patient: No - Discharge Referral Referred to [facility] Med [facility] No
[2019-07-20] MEDS: INSULIN SLIDING SCALE (NOVOLOG) 1 VIAL SQ SCH ×2 (19:19→22:29)
[2019-07-20 19:29] VITALS: BMI 33.7
[2019-07-20 20:15] LABS: HEP B CORE AB, TOT Negative (Negative)
--- NOTE | 2019-07-20 20:28 | CONSULT ---
Consult - text type - Consultation Consultation Note: 54-year-old man with history of hypertension, diabetes mellitus and previous cocaine abuse was admitted with 2 days of bilateral lower quadrant abdominal pain. Noted to be in Afib . CT abdomen shows renal and splenic infarcts. He has chronic SIMMONS and occasional edema. No chest pain, palptiaitons, orthopnea or PND. - Smoking History Smoking history: Never smoked Home Medications - Allergies Allergies/Adverse Reactions: Allergies Allergy/AdvReac Type Severity Reaction Status Date / Time No Known Allergies Allergy Verified 07/18/19 19:08 - Home Medications Home Medications: Ambulatory Orders Atorvastatin Ca [Lipitor] 10 mg PO HS 07/18/19 Glipizide [Glipizide ER] 10 mg PO BID 07/18/19 Insulin Glargine,Hum.rec.anlog [Lantus Solostar PEN (NF)] 0 units SQ HS Lisinopril [Prinivil] 10 mg PO DAILY 07/18/19 Vital Signs: Last Vital Signs Temp Pulse Resp BP Pulse Ox 98.5 F 89 20 122/85 99 07/20/19 18:30 07/20/19 18:30 07/20/19 18:30 07/20/19 18:30 07/20/19 18:30 Constitutional: Yes: Well Nourished, Mild Distress Eyes: Yes: Conjunctiva Clear HENT: Yes: Atraumatic, Normocephalic Neck: Yes: Supple, Trachea Midline Respiratory: Yes: Regular, CTA Bilaterally Gastrointestinal: Yes: Normal Bowel Sounds Heart Sounds: Yes: S1, S2, irregular Murmur: No: Systolic Murmur, Diastolic Murmur Edema: No - Other Data Labs/ Meds reviewed Assessment/Plan 54 M DM, HTN with newly diagnosed Afib and admitted with abdominal pain and nausea noted to have transaminitis and renal and splenic infarcts. No family h/o thrombophilia or bleeding diathesis Mother of pancreatic cancer in her 50s On heparin drip Discussed pros/cons of various a/c options, coumadin/DOACs Switch to oral a/c per cardiology Discussed f/u with genetics given mother with h/o pancreatic cancer--contact nos. given Discussed age appropriate cancer screening --colonoscopy Reverse AG ratio -- check protein studies Leukocytosis--? reactive If persistent witll need w/u
[2019-07-20] MEDS: ATORVASTATIN CA 10 MG TABLET (FP) PO SCH (22:26)
[2019-07-21] MEDS: ONDANSETRON 4 MG/2 ML VIAL IVPUSH PRN ×2 (00:12→14:42)
[2019-07-21] MEDS: morphine SULFATE 4 MG/ML VIAL IM PRN (00:12)
[2019-07-21] MEDS: HEPARIN - 25,000 UNIT in SODIUM CHLORIDE 495 ML IV SCH (02:10)
[2019-07-21] MEDS: SODIUM CHLORIDE 1,000 ML IV SCH ×2 (02:11→18:14)
[2019-07-21] MEDS: INSULIN SLIDING SCALE (NOVOLOG) 1 VIAL SQ SCH ×6 (03:35→22:47)
[2019-07-21 07:01] LABS: HEMOGLOBIN 13.1 GM/dL (11.7-16.9); MCHC 32.9 g/dl (32.0-35.9); MEAN CELL VOLUME 85.2 fl (80-96); MEAN PLT VOLUME 8.2 fl (7.5-11.1); PLATELET COUNT 259 K/MM3 (134-434); RBC 4.69 M/mm3 (4.00-5.60); RDW 13.9 % (11.9-15.9)
[2019-07-21] MEDS: LISINOPRIL 10 MG TABLET (FP) PO SCH (09:38)
--- NOTE | 2019-07-21 09:54 | PN ---
Progress Note, Physician Chief Complaint: no complaints tele af rate controlled. History of Present Illness: 54 M DM, HTN with newly diagnosed Afib and admitted with abdominal pain and nausea noted to have transaminitis and renal and splenic infarcts. - Current Medication List Current Medications: Active Medications Atorvastatin Calcium (Lipitor -) 10 mg PO HS ASHLEY Last Admin: 07/20/19 22:26 Dose: 10 mg Heparin Sodium (Porcine) (Heparin -) 1,000 unit IVPUSH PRN PRN PRN Reason: Heparin Last Admin: 07/21/19 07:40 Dose: 1,000 unit Heparin Sodium (Porcine) (Heparin -) 5,000 unit IVPUSH PRN PRN PRN Reason: Heparin Sodium Chloride (Normal Saline -) 1,000 mls @ 100 mls/hr IV ASDIR ASHLEY Last Admin: 07/21/19 02:11 Dose: 100 mls/hr Heparin Sodium (Porcine) 25, (000 unit/ Sodium Chloride) 500 mls @ 20 mls/hr IV TITR ASHLEY; Protocol Last Titration: 07/21/19 07:30 Dose: 1,100 unit/hr, 22 mls/hr Insulin Aspart (Novolog Vial Sliding Scale -) 1 vial SQ ACHS ASHLEY; Protocol Last Admin: 07/21/19 06:21 Dose: Not Given Lisinopril (Prinivil) 10 mg PO DAILY ASHLEY Last Admin: 07/21/19 09:38 Dose: 10 mg Morphine Sulfate (Morphine Sulfate) 2 mg IVPUSH Q6H PRN PRN Reason: PAIN LEVEL 6-10 Last Admin: 07/19/19 23:14 Dose: 2 mg Morphine Sulfate (Morphine Sulfate) 4 mg IM Q6H PRN PRN Reason: PAIN LEVEL 6-10 Last Admin: 07/21/19 00:12 Dose: 4 mg Ondansetron HCl (Zofran Injection) 4 mg IVPUSH Q6H PRN PRN Reason: NAUSEA Last Admin: 07/21/19 00:12 Dose: 4 mg Prochlorperazine Maleate (Compazine -) 5 mg PO Q4H PRN PRN Reason: NAUSEA AND/OR VOMITING Last Admin: 07/19/19 03:00 Dose: 5 mg - Objective Vital Signs: Vital Signs Temperature 99.2 F 07/21/19 05:39 Pulse Rate 90 07/21/19 05:39 Respiratory Rate 20 07/21/19 05:39 Blood Pressure 141/90 07/21/19 05:39 O2 Sat by Pulse Oximetry (%) 99 07/20/19 21:00 Constitutional: Yes: No Distress, Calm Eyes: Yes: Conjunctiva Clear, EOM Intact HENT: Yes: Normocephalic Neck: Yes: Trachea Midline Cardiovascular: Yes: Pulse Irregular Respiratory: Yes: CTA Bilaterally Gastrointestinal: Yes: Normal Bowel Sounds, Soft Musculoskeletal: Yes: WNL Extremities: Yes: WNL Edema: No Integumentary: Yes: WNL Labs: CBC, BMP 07/21/19 06:00 07/20/19 06:28 INR, PTT INR 1.56 (0.83-1.09) H 07/20/19 12:26 Assessment/Plan 54 M DM, HTN with newly diagnosed Afib and admitted with abdominal pain and nausea noted to have transaminitis and renal and splenic infarcts. Afib likely resulting in peripheral embolic events. HR remains adequately controlled off AV shazia agents. Echocardiogram showed normal lvef, mild mr/tr, sev lae Agree with full dose systemic AC, receiving heparin gtt currently with plan for oral AC prior to discharge Endocarditis is less likely fup blood cultures, no evidence on echo Change to Eliquis 5 mg bid when being DCD. Outpatient fu with Dr Kathleen when dcd. DC telemetry tomorrow.
[2019-07-21] MEDS: MORPHINE SULFATE 2 MG/ML VIAL IVPUSH PRN (16:06)
--- NOTE | 2019-07-21 18:26 | PN ---
Physical Exam: SUBJECTIVE: Patient seen and examined. He has no complaints. OBJECTIVE: Vital Signs Period Temp Pulse Resp BP Sys/Machado Pulse Ox Last 24 Hr 98.4 F-99.4 F 78-100 20-20 122-152/71-91 99-99 GENERAL: The patient is awake, alert, and fully oriented, in no acute distress. LUNGS: Breath sounds equal, clear to auscultation bilaterally, no wheezes, no crackles, no accessory muscle use. HEART: Irregularly irregular without murmur, rub or gallop. ABDOMEN: Obese, soft, nontender, nondistended, normoactive bowel sounds, no guarding, no rebound, no hepatosplenomegaly, no masses. EXTREMITIES: 2+ pulses, warm, well-perfused, no edema. Laboratory Results - last 24 hr 07/19/19 07/20/19 07/21/19 06:00 22:28 05:25 WBC RBC Hgb Hct MCV MCH MCHC RDW Plt Count MPV PTT (Actin FS) POC Glucometer 170 92 Hep A IgM Ab Confirm Negative Hepatitis A Ab Total Negative Hep Bs Antigen Negative Hep Bs Antibody Non reactive Hep B Core Total Ab Negative Hep B Core IgM Ab Negative Hepatitis Be Antibody Negative Hepatitis Be Antigen Negative 07/21/19 07/21/19 07/21/19 06:00 06:20 11:11 WBC 14.0 H RBC 4.69 Hgb 13.1 Hct 40.0 MCV 85.2 MCH 28.0 MCHC 32.9 RDW 13.9 Plt Count 259 MPV 8.2 PTT (Actin FS) 48.7 H POC Glucometer 69 Hep A IgM Ab Confirm Hepatitis A Ab Total Hep Bs Antigen Hep Bs Antibody Hep B Core Total Ab Hep B Core IgM Ab Hepatitis Be Antibody Hepatitis Be Antigen 07/21/19 16:28 WBC RBC Hgb Hct MCV MCH MCHC RDW Plt Count MPV PTT (Actin FS) POC Glucometer 91 Hep A IgM Ab Confirm Hepatitis A Ab Total Hep Bs Antigen Hep Bs Antibody Hep B Core Total Ab Hep B Core IgM Ab Hepatitis Be Antibody Hepatitis Be Antigen Active Medications Generic Name Dose Route Start Last Admin Trade Name Freq PRN Reason Stop Dose Admin Atorvastatin Calcium 10 mg 07/19/19 22:00 07/20/19 22:26 Lipitor - PO 10 mg HS ASHLEY Administration Heparin Sodium (Porcine) 1,000 unit 07/19/19 23:09 07/21/19 07:40 Heparin - IVPUSH 1,000 unit PRN PRN Administration Heparin Heparin Sodium (Porcine) 5,000 unit 07/19/19 23:09 Heparin - IVPUSH PRN PRN Heparin Sodium Chloride 1,000 mls @ 100 mls/hr 07/19/19 18:00 07/21/19 18:14 Normal Saline - IV 100 mls/hr ASDIR ASHLEY Administration Heparin Sodium (Porcine) 25, 500 mls @ 20 mls/hr 07/19/19 23:15 07/21/19 07: 30 000 unit/ Sodium Chloride IV 1,100 unit/hr TITR ASHLEY 22 mls/hr Titration Protocol 1,000 UNIT/HR Insulin Aspart 1 vial 07/20/19 16:30 07/21/19 16:33 Novolog Vial Sliding Scale - SQ Not Given ACHS ASHLEY Protocol Lisinopril 10 mg 07/19/19 10:00 07/21/19 09:38 Prinivil PO 10 mg DAILY ASHLEY Administration Morphine Sulfate 2 mg 07/19/19 10:24 07/21/19 16:06 Morphine Sulfate IVPUSH 2 mg Q6H PRN Administration PAIN LEVEL 6-10 Morphine Sulfate 4 mg 07/19/19 15:43 07/21/19 00:12 Morphine Sulfate IM 4 mg Q6H PRN Administration PAIN LEVEL 6-10 Ondansetron HCl 4 mg 07/19/19 10:26 07/21/19 14:42 Zofran Injection IVPUSH 4 mg Q6H PRN Administration NAUSEA Prochlorperazine Maleate 5 mg 07/19/19 01:50 07/19/19 03:00 Compazine - PO 5 mg Q4H PRN Administration NAUSEA AND/OR VOMITING ASSESSMENT/PLAN: This is a 54 year old man with a history of HTN, hyperlipidemia, type 2 DM, cocaine abuse who presented to the ED with RLQ abdominal pain. 1. Atrial fib with embolic infarcts of spleen and kidneys - Currently on IV heparin drip and will change to oral anticoagulation at discharge - Rate controlled off meds - Echo shows mild lVH, LVEF 55-60%, normal RV, severely dilated LA, mild MR, mild TR 2. Hepatic transaminitis - Improving - Hepatitis panel negative - US shows normal liver, normal gallbladder, normal ducts 3. HTN - Continue lisinopril 4. Hyperlipidemia - Continue Lipitor 5. Type 2 DM - Continue Novolog sliding scale 6. Hypernatremia - Check electrolytes 7. Hypokalemia - Check electrolytes 8. Leukocytosis 9. Reverse A/G ratio - SPEP/MEGGAN pending Visit type - Emergency Visit Emergency Visit: Yes ED Registration Date: 07/18/19 Care time: The patient presented to the Emergency Department on the above date and was hospitalized for further evaluation of their emergent condition. - New Patient This patient is new to me today: Yes Date on this admission: 07/21/19 - Critical Care Critical Care patient: No - Discharge Referral Referred to [facility] Med [facility].C.: No
[2019-07-21] MEDS: ATORVASTATIN CA 10 MG TABLET (FP) PO SCH (22:48)
[2019-07-22] MEDS: HEPARIN - 25,000 UNIT in SODIUM CHLORIDE 495 ML IV SCH (00:26)
[2019-07-22] MEDS: INSULIN SLIDING SCALE (NOVOLOG) 1 VIAL SQ SCH ×2 (06:21→11:35)
[2019-07-22] MEDS ORDERED: PT OWN MED DRAWER 7, Y5N ONE (07:06)
--- NOTE | 2019-07-22 07:34 | PN ---
Physical Exam: SUBJECTIVE: Patient seen and examined OBJECTIVE: Vital Signs Period Temp Pulse Resp BP Sys/Machado Pulse Ox Last 24 Hr 98.1 F-99.4 F 100-108 18-20 142-157/78-96 99-99 GENERAL: The patient is awake, alert, and fully oriented, in no acute distress. HEAD: Normal with no signs of trauma. EYES: PERRL, extraocular movements intact, sclera anicteric, conjunctiva clear. No ptosis. ENT: Ears normal, nares patent, oropharynx clear without exudates, moist mucous membranes. NECK: Trachea midline, full range of motion, supple. LUNGS: Breath sounds equal, clear to auscultation bilaterally, no wheezes, no crackles, no accessory muscle use. HEART: Regular rate and rhythm, S1, S2 without murmur, rub or gallop. ABDOMEN: Soft, nontender, nondistended, normoactive bowel sounds, no guarding, no rebound, no hepatosplenomegaly, no masses. EXTREMITIES: 2+ pulses, warm, well-perfused, no edema. NEUROLOGICAL: Cranial nerves II through XII grossly intact. Normal speech, gait not observed. PSYCH: Normal mood, normal affect. SKIN: Warm, dry, normal turgor, no rashes or lesions noted Laboratory Results - last 24 hr 07/21/19 07/21/19 07/21/19 11:11 16:28 22:46 PTT (Actin FS) POC Glucometer 69 91 78 07/21/19 07/22/19 23:00 05:34 PTT (Actin FS) 26.0 POC Glucometer 86 Active Medications Generic Name Dose Route Start Last Admin Trade Name Freq PRN Reason Stop Dose Admin Atorvastatin Calcium 10 mg 07/19/19 22:00 07/21/19 22:48 Lipitor - PO 10 mg HS ASHLEY Administration Heparin Sodium (Porcine) 1,000 unit 07/19/19 23:09 07/21/19 07:40 Heparin - IVPUSH 1,000 unit PRN PRN Administration Heparin Heparin Sodium (Porcine) 5,000 unit 07/19/19 23:09 07/22/19 00:23 Heparin - IVPUSH 5,000 unit PRN PRN Administration Heparin Sodium Chloride 1,000 mls @ 100 mls/hr 07/19/19 18:00 07/21/19 18:14 Normal Saline - IV 100 mls/hr ASDIR ASHLEY Administration Heparin Sodium (Porcine) 25, 500 mls @ 20 mls/hr 07/19/19 23:15 07/22/19 00: 26 000 unit/ Sodium Chloride IV 1,250 unit/hr TITR ASHLEY 25 mls/hr Administration Protocol 1,000 UNIT/HR Insulin Aspart 1 vial 07/20/19 16:30 07/22/19 06:21 Novolog Vial Sliding Scale - SQ Not Given ACHS [facility] Protocol Lisinopril 10 mg 07/19/19 10:00 07/21/19 09:38 Prinivil PO 10 mg DAILY [facility] Administration Morphine Sulfate 2 mg 07/19/19 10:24 07/21/19 16:06 Morphine Sulfate IVPUSH 2 mg Q6H PRN Administration PAIN LEVEL 6-10 Morphine Sulfate 4 mg 07/19/19 15:43 07/21/19 00:12 Morphine Sulfate IM 4 mg Q6H PRN Administration PAIN LEVEL 6-10 Ondansetron HCl 4 mg 07/19/19 10:26 07/21/19 14:42 Zofran Injection IVPUSH 4 mg Q6H PRN Administration NAUSEA Prochlorperazine Maleate 5 mg 07/19/19 01:50 07/19/19 03:00 Compazine - PO 5 mg Q4H PRN Administration NAUSEA AND/OR VOMITING ASSESSMENT/PLAN: ATTENDING PHYSICIAN STATEMENT I saw and evaluated the patient. I reviewed the resident's note and discussed the case with the resident. I agree with the resident's findings and plan as documented. SUBJECTIVE: OBJECTIVE: ASSESSMENT AND PLAN:
[2019-07-22 07:56] LABS: HEMATOCRIT 37.7 % (35.4-49); HEMOGLOBIN 12.7 GM/dL (11.7-16.9); MCH 28.4 pg (25.7-33.7); MCHC 33.7 g/dl (32.0-35.9); MEAN CELL VOLUME 84.2 fl (80-96); MEAN PLT VOLUME 8.4 fl (7.5-11.1); PLATELET COUNT 313 K/MM3 (134-434); RBC 4.48 M/mm3 (4.00-5.60); WHITE BLOOD COUNT 13.3 K/mm3 (4.0-10.0)
[2019-07-22] MEDS ORDERED: oxyCODONE HCL 5 MG TABLET PO PRN (08:08)
[2019-07-22 08:26] LABS: ALBUMIN 2.4 g/dl (3.4-5.0); BILIRUBIN,DIRECT 0.3 mg/dL (0.0-0.2); BLOOD UREA NITROGEN 14.3 mg/dL (7-18); CALCIUM 7.3 mg/dL (8.5-10.1); CREATININE 0.9 mg/dL (0.55-1.3); POTASSIUM 3.5 mmol/L (3.5-5.1); TOT PROT 6.3 g/dl (6.4-8.2)
[2019-07-22] MEDS: LISINOPRIL 10 MG TABLET (FP) PO SCH (11:08)
--- NOTE | 2019-07-22 11:49 | PN ---
Progress Note, Physician History of Present Illness: pt seen and examined today in nad. no overnight events. no new complaints. - Current Medication List Current Medications: Active Medications Apixaban (Eliquis -) 5 mg PO BID [facility] Atorvastatin Calcium (Lipitor -) 10 mg PO HS [facility] Last Admin: 07/21/19 22:48 Dose: 10 mg Heparin Sodium (Porcine) (Heparin -) 1,000 unit IVPUSH PRN PRN PRN Reason: Heparin Last Admin: 07/21/19 07:40 Dose: 1,000 unit Heparin Sodium (Porcine) (Heparin -) 5,000 unit IVPUSH PRN PRN PRN Reason: Heparin Last Admin: 07/22/19 00:23 Dose: 5,000 unit Heparin Sodium (Porcine) 25, (000 unit/ Sodium Chloride) 500 mls @ 20 mls/hr IV TITR [facility]; Protocol Last Admin: 07/22/19 00:26 Dose: 1,250 unit/hr, 25 mls/hr Insulin Aspart (Novolog Vial Sliding Scale -) 1 vial SQ ACHS [facility]; Protocol Last Admin: 07/22/19 06:21 Dose: Not Given Lisinopril (Prinivil) 10 mg PO DAILY [facility] Last Admin: 07/22/19 11:08 Dose: 10 mg Ondansetron HCl (Zofran Injection) 4 mg IVPUSH Q6H PRN PRN Reason: NAUSEA Last Admin: 07/21/19 14:42 Dose: 4 mg Oxycodone HCl (Roxicodone -) 5 mg PO Q6H PRN PRN Reason: PAIN LEVEL 6-10 Prochlorperazine Maleate (Compazine -) 5 mg PO Q4H PRN PRN Reason: NAUSEA AND/OR VOMITING Last Admin: 07/19/19 03:00 Dose: 5 mg - Objective Vital Signs: Vital Signs Temperature 98.1 F 07/22/19 06:00 Pulse Rate 108 H 07/22/19 06:00 Respiratory Rate 07/22/19 06:00 Blood Pressure 157/90 07/22/19 06:00 O2 Sat by Pulse Oximetry (%) 99 07/21/19 21:00 Constitutional: Yes: No Distress, Calm Eyes: Yes: Conjunctiva Clear, EOM Intact HENT: Yes: Atraumatic, Normocephalic Neck: Yes: Supple, Trachea Midline Cardiovascular: Yes: Pulse Irregular, S1, S2. No: Regular Rate and Rhythm, Bradycardia, Tachycardia, Bruit, JVD, Gallop, Murmur, Rub, S3, S4, Varicosities Respiratory: Yes: Regular, CTA Bilaterally. No: Rales, Rhonchi, Wheezes Gastrointestinal: Yes: Normal Bowel Sounds, Soft. No: Distention, Tenderness Musculoskeletal: Yes: WNL Extremities: Yes: WNL Edema: No Peripheral Pulses WNL: Yes Neurological: Yes: Alert, Oriented Psychiatric: Yes: Alert, Oriented Labs: CBC, BMP 07/22/19 06:30 07/22/19 06:30 INR, PTT INR 1.56 (0.83-1.09) H 07/20/19 12:26 - ....Imaging Chest X-ray: Report Reviewed, Image Reviewed EKG: Report Reviewed, Image Reviewed Other: Report Reviewed, Image Reviewed (tele-afib, hr adequately controlled currently, mildly elevated at times) Assessment/Plan 54 M DM, HTN with newly diagnosed Afib and admitted with abdominal pain and nausea noted to have transaminitis and renal and splenic infarcts. Afib likely resulting in peripheral embolic events. HR has been overall adequately controlled off AV shazia agents. mildly elevated at times will start Cardizem CD 120mg daily to maintain adequate HR control Echocardiogram showed normal lvef, mild mr/tr, sev lae now on eliquis 5mg bid Endocarditis is less likely bcx no growth, no evidence on echo DC telemetry Outpatient fup for further cardiac management.
[2019-07-22] MEDS ORDERED: APIXABAN 5 MG TABLET PO SCH ×2 (12:15→22:00)
--- NOTE | 2019-07-22 13:53 | PN ---
Teaching Attending Note Name of Resident: Tyler Patel ATTENDING PHYSICIAN STATEMENT I saw and evaluated the patient. I reviewed the resident's note and discussed the case with the resident. I agree with the resident's findings and plan as documented. SUBJECTIVE: Patient has no complaints. OBJECTIVE: Vital Signs Period Temp Pulse Resp BP Sys/Machado Pulse Ox Last 24 Hr 98.1 F-99.4 F 99-108 18-20 142-157/78-96 97-99 HEART: Irregular LUNGS: Clear ABDOMEN: Obese, soft, non-tender, non-distended, normal BS EXTREMITIES: No edema Laboratory Results - last 24 hr 07/21/19 07/21/19 07/21/19 16:28 22:46 23:00 WBC RBC Hgb Hct MCV MCH MCHC RDW Plt Count MPV PTT (Actin FS) 26.0 Sodium Potassium Chloride Carbon Dioxide Anion Gap BUN Creatinine Est GFR (CKD-EPI)AfAm Est GFR (CKD-EPI)NonAf POC Glucometer 91 78 Random Glucose Calcium Total Bilirubin Direct Bilirubin AST ALT Alkaline Phosphatase Total Protein Albumin 07/22/19 07/22/19 07/22/19 05:34 06:30 06:30 WBC 13.3 H RBC 4.48 Hgb 12.7 Hct 37.7 MCV 84.2 MCH 28.4 MCHC 33.7 RDW 14.0 Plt Count 313 D MPV 8.4 PTT (Actin FS) 65.5 H Sodium Potassium Chloride Carbon Dioxide Anion Gap BUN Creatinine Est GFR (CKD-EPI)AfAm Est GFR (CKD-EPI)NonAf POC Glucometer 86 Random Glucose Calcium Total Bilirubin Direct Bilirubin AST ALT Alkaline Phosphatase Total Protein Albumin 07/22/19 07/22/19 06:30 11:37 WBC RBC Hgb Hct MCV MCH MCHC RDW Plt Count MPV PTT (Actin FS) Sodium 142 Potassium 3.5 Chloride 110 H Carbon Dioxide 26 Anion Gap 7 L BUN 14.3 Creatinine 0.9 Est GFR (CKD-EPI)AfAm 110.27 Est GFR (CKD-EPI)NonAf 95.14 POC Glucometer 100 Random Glucose 84 Calcium 7.3 L Total Bilirubin 1.0 Direct Bilirubin 0.3 H AST 33 ALT 45 Alkaline Phosphatase 58 Total Protein 6.3 L Albumin 2.4 L Current Medications Generic Name Dose Route Start Last Admin Trade Name Freq PRN Reason Stop Dose Admin Apixaban 5 mg 07/22/19 12:15 Eliquis - PO BID [facility] Atorvastatin Calcium 10 mg 07/19/19 22:00 07/21/19 22:48 Lipitor - PO 10 mg HS ASHLEY Administration Diltiazem HCl 120 mg 07/22/19 13:30 Cardizem Cd - PO DAILY [facility] Heparin Sodium (Porcine) 1,000 unit 07/19/19 23:09 07/21/19 07:40 Heparin - IVPUSH 1,000 unit PRN PRN Administration Heparin Heparin Sodium (Porcine) 5,000 unit 07/19/19 23:09 07/22/19 00:23 Heparin - IVPUSH 5,000 unit PRN PRN Administration Heparin Heparin Sodium (Porcine) 25, 500 mls @ 20 mls/hr 07/19/19 23:15 07/22/19 00: 26 000 unit/ Sodium Chloride IV 1,250 unit/hr TITR ASHLEY 25 mls/hr Administration Protocol 1,000 UNIT/HR Insulin Aspart 1 vial 07/20/19 16:30 07/22/19 06:21 Novolog Vial Sliding Scale - SQ Not Given ACHS [facility] Protocol Lisinopril 10 mg 07/19/19 10:00 07/22/19 11:08 Prinivil PO 10 mg DAILY [facility] Administration Ondansetron HCl 4 mg 07/19/19 10:26 07/21/19 14:42 Zofran Injection IVPUSH 4 mg Q6H PRN Administration NAUSEA Oxycodone HCl 5 mg 07/22/19 08:08 Roxicodone - PO Q6H PRN PAIN LEVEL 6-10 Prochlorperazine Maleate 5 mg 07/19/19 01:50 07/19/19 03:00 Compazine - PO 5 mg Q4H PRN Administration NAUSEA AND/OR VOMITING ASSESSMENT AND PLAN: This is a 54 year old man with a history of HTN, hyperlipidemia, type 2 DM, cocaine abuse who presented to the ED with RLQ abdominal pain. 1. 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 Hepatic transaminitis - Improved - Hepatitis panel negative - US shows normal liver, normal gallbladder, normal ducts 3. HTN - Continue lisinopril 4. Hyperlipidemia - Continue Lipitor 5. Type 2 DM - Continue Novolog sliding scale 6. Hypernatremia - Improved 7. Hypokalemia - Improved 8. Leukocytosis 9. Reverse A/G ratio - SPEP/MEGGAN pending - Outpatient hematology follow-up
--- NOTE | 2019-07-22 14:41 | DS ---
Physical Exam: SUBJECTIVE: Patient seen and examined at bed side , feeling better , tolerating idet , cleared by cardiology to dc home on Cardizim 120 daily and ELiquis 5 bid , tolerating diet , avoid any ant emetics as QTC 505 repeat TSh in 4 weeks OBJECTIVE: Vital Signs Period Temp Pulse Resp BP Sys/Machado Pulse Ox Last 24 Hr 98.1 F-99.4 F 99-108 18-20 142-157/78-96 97-99 PHYSICAL EXAM GENERAL: AAOx3 in NAD HEAD: NC/AT EYES: EOMI, Conjunctiva clear, sclera anicteric ENT: moist mucous membrane NECK: Supple, no JVD LUNGS: CTA B/L, no crackles no wheezing no accessory muscle use. HEART: -IRR IRR, normal s1, s2, murmur no M/R/G ABDOMEN: Soft, ND, NT, +BS 4 Q, no CVA Tenderness LOWER EXTREMITIES: no edema, +2DP pulse, NEUROLOGICAL: No focal deficit. Normal speech. gait not observed. PSYCHIATRIC: Cooperative. Good eye contact. Appropriate mood and affect. SKIN: Warm, dry, LABS Laboratory Results - last 24 hr 07/21/19 07/21/19 07/21/19 16:28 22:46 23:00 WBC RBC Hgb Hct MCV MCH MCHC RDW Plt Count MPV PTT (Actin FS) 26.0 Sodium Potassium Chloride Carbon Dioxide Anion Gap BUN Creatinine Est GFR (CKD-EPI)AfAm Est GFR (CKD-EPI)NonAf POC Glucometer 91 78 Random Glucose Calcium Total Bilirubin Direct Bilirubin AST ALT Alkaline Phosphatase Total Protein Albumin 07/22/19 07/22/19 07/22/19 05:34 06:30 06:30 WBC 13.3 H RBC 4.48 Hgb 12.7 Hct 37.7 MCV 84.2 MCH 28.4 MCHC 33.7 RDW 14.0 Plt Count 313 D MPV 8.4 PTT (Actin FS) 65.5 H Sodium Potassium Chloride Carbon Dioxide Anion Gap BUN Creatinine Est GFR (CKD-EPI)AfAm Est GFR (CKD-EPI)NonAf POC Glucometer 86 Random Glucose Calcium Total Bilirubin Direct Bilirubin AST ALT Alkaline Phosphatase Total Protein Albumin 07/22/19 07/22/19 06:30 11:37 WBC RBC Hgb Hct MCV MCH MCHC RDW Plt Count MPV PTT (Actin FS) Sodium 142 Potassium 3.5 Chloride 110 H Carbon Dioxide 26 Anion Gap 7 L BUN 14.3 Creatinine 0.9 Est GFR (CKD-EPI)AfAm 110.27 Est GFR (CKD-EPI)NonAf 95.14 POC Glucometer 100 Random Glucose 84 Calcium 7.3 L Total Bilirubin 1.0 Direct Bilirubin 0.3 H AST 33 ALT 45 Alkaline Phosphatase 58 Total Protein 6.3 L Albumin 2.4 L CBC, BMP 07/22/19 06:30 07/22/19 06:30 IMPRESSION: 1. Multiple areas of hypoperfusion throughout both kidneys consistent with renal infarcts. 2. Large area of hypoperfusion within the spleen suggestive of a splenic infarct. 3. No additional findings of acute pathology within the abdomen or pelvis. Please see above discussion. HOSPITAL COURSE: Date of Admission:07/18/19 Date of Discharge: 07/22/19 This is a 54 year old man with a history of HTN, hyperlipidemia, type 2 DM, cocaine abuse who presented to the ED with RLQ abdominal pain. 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 Echo shows mild lVH, LVEF 55-60%, normal RV, severely dilated LA, mild MR, mild TR #Hepatic transaminitis Improving, repeat out pt , Hepatitis panel negative, US shows normal liver, normal gallbladder, normal ducts. #HTN Continue lisinopril #Hyperlipidemia Continue Lipitor #Type 2 DM Continue home regimine # Hypernatremia, resolved # Hypokalemia, resolved # Leukocytosis likely reactive #Reverse A/G ratio SPEP/MEGGAN pending follow up with your primary regarding results Minutes to complete discharge: 50 Discharge Summary Problems reviewed: Yes Reason For Visit: NEW ONSET ATRIAL FIBRILLATION Current Active Problems Afib (Chronic) Diabetes mellitus with hyperglycemia, with long-term current use of insulin ( Chronic) Hypertension (Chronic) Mid back pain on left side (Chronic) New onset atrial fibrillation (Chronic) Obesity (BMI 30-39.9) (Chronic) Renal infarct (Chronic) Splenic infarct (Chronic) Substance abuse (Chronic) Condition: Fair - Instructions Diet, Activity, Other Instructions: you presented to the hospital due to abdominal pain , you were found to have irregular heart beat called AFIB that cause clots in your kidney and spleen. your symptoms improved and you tolerated diet You will be send home with blood thinner call Eliquis 5 mg twice daily please take it as prescribed You started on new medication called Cardizim 120 mg daily to control your heart rate please take it as prescribed You can use tylenol as needed for pain Please resume all other home medication as prescribed measure your blood pessure daily and bring records to your primary Measre you blood sugar before each meals and followup with your endocrinology Please follow up with Dr Leo Lopez Cardiology within one week please follow up Your primary care physician within one week Dr Lewis (repeat your thyroid function est in 4-6 weeks ) if you develop fever , chills, chest pain , sever bleeding , abdominal pain please return to emergency room. Referrals: Landry Lewis MD [Staff Physician] - 1 Week Akin Becerra MD [Primary Care Provider] - 1 Week John Kathleen MD [Staff Physician] - 1 Week - Home Medications Comprehensive Discharge Medication List: Ambulatory Orders Insulin (LOG) Aspart [NovoLOG -] 12 units SQ ACHS 09/02/16 Atorvastatin Ca [Lipitor] 10 mg PO HS 07/18/19 Glipizide [Glipizide ER] 20 mg PO HS 07/18/19 Insulin Glargine,Hum.rec.anlog [Lantus Solostar PEN -] 50 units SQ HS 07/18/19 Lisinopril [Prinivil] 10 mg PO DAILY 07/18/19 Apixaban [Eliquis -] 5 mg PO BID #60 tablet 07/22/19 Diltiazem Cd [Cardizem Cd -] 120 mg PO DAILY #30 cap.cd.24h 07/22/19 This patient is new to me today: Yes Date on this admission: 07/22/19 Emergency Visit: Yes ED Registration Date: 07/18/19 Care time: The patient presented to the Emergency Department on the above date and was hospitalized for further evaluation of their emergent condition. Critical Care patient: No - Discharge Referral Referred to [facility] Med P.C.: No ATTENDING PHYSICIAN STATEMENT I saw and evaluated the patient. I reviewed the resident's note and discussed the case with the resident. I agree with the resident's findings and plan as documented. SUBJECTIVE: OBJECTIVE: ASSESSMENT AND PLAN:
[2019-07-22 15:15] VITALS: BP 153/93; PULSE 103; TEMP 98.6
[2019-07-22 17:06] LABS: FREE KAPPA,SERUM 30.5 mg/L (3.3-19.4)
== END 2019-07-22 15:50 | disposition home or self-care (01) | DRG 309 ==
LOC: JER 19:04 → JERBED 21:40 → J4W 07-20 18:23
PROVIDERS: ADMIT Internal Medicine; ATTEND Internal Medicine
DX: I48.91 Unspecified atrial fibrillation (principal); N28.0 Ischemia and infarction of kidney; E87.0 Hyperosmolality and hypernatremia; I10 Essential (primary) hypertension; E78.5 Hyperlipidemia, unspecified; R74.0 Nonspecific elevation of levels of transaminase and lactic acid dehydrogenase [LDH]; E66.9 Obesity, unspecified; Z68.33 Body mass index [BMI] 33.0-33.9, adult; D72.829 Elevated white blood cell count, unspecified; F19.10 Other psychoactive substance abuse, uncomplicated; E87.6 Hypokalemia; D73.5 Infarction of spleen; I45.10 Unspecified right bundle-branch block; E11.65 Type 2 diabetes mellitus with hyperglycemia; M54.9 Dorsalgia, unspecified; Z79.4 Long term (current) use of insulin
CPT/HCPCS: 36415; 71046-TC-FY; 74177-TC; 76705-TC; 80048; 80053; 80074; 80076; 80307; 82550; 82553; 82784; 82962; 83036; 83605; 83690; 83735; 83883; 84100; 84155; 84165; 84443; 84484; 85025; 85027; 85610; 85730; 86334; 86704; 86706; 86707; 86708; 86709; 86850; 86900; 86901; 87040; 87340; 87902; 93005; 93010; 93306-TC; 99285-25; J0131; J1644; J7030

== ENCOUNTER 2019-08-15 09:25 | Inpatient (IN) | payer BC ==
[2019-08-15 09:38] VITALS: BMI 33.4
[2019-08-15] MEDS ORDERED: ACETAMINOPHEN INJECTION 100 ML IVPB ONE ×2 (10:21→10:29)
[2019-08-15] MEDS ORDERED: SODIUM CHLORIDE 2,994 ML IV ONE (11:30)
[2019-08-15] MEDS ORDERED: ACETAMINOPHEN 1000 MG/100 ML VIAL (NON FORMULARY) IVPB ONE (11:31)
[2019-08-15 11:48] LABS: INR 2.09 (0.83-1.09); PROTHROMBIN TIME (PATIENT) 24.9 SEC (9.7-13.0)
[2019-08-15 11:51] LABS: ACTIVATED PTT 33.4 SECONDS (25.2-36.5)
[2019-08-15 11:53] LABS: BASO % 0.7 % (0-2.0); HEMATOCRIT 43.8 % (35.4-49); HEMOGLOBIN 14.6 GM/dL (11.7-16.9); LYMPH % 12.3 % (8-40); MCH 28.6 pg (25.7-33.7); MCHC 33.3 g/dl (32.0-35.9); MEAN PLT VOLUME 7.9 fl (7.5-11.1); MONO % 11.8 % (3.8-10.2); NEUT % 75.2 % (42.8-82.8); PLATELET COUNT 199 K/MM3 (134-434); RDW 14.9 % (11.9-15.9); WHITE BLOOD COUNT 5.7 K/mm3 (4.0-10.0)
[2019-08-15 12:06] LABS: VENOUS PC02 43.6 mmHg (38-52); VENOUS PH 7.43 (7.31-7.41); VENOUS PO2 < 49 mmHg (28-48)
[2019-08-15 12:07] LABS: ALBUMIN 3.6 g/dl (3.4-5.0); BLOOD UREA NITROGEN 23.2 mg/dL (7-18); CALCIUM 8.4 mg/dL (8.5-10.1); CREATININE 1.5 mg/dL (0.55-1.3); POTASSIUM 4.2 mmol/L (3.5-5.1); TOT PROT 8.4 g/dl (6.4-8.2)
[2019-08-15] MEDS ORDERED: AZITHROMYCIN IVPB 500 MG in DEXTROSE 5%-WATER - 250 ML IVPB ONE (16:15)
[2019-08-15] MEDS ORDERED: CEFTRIAXONE 1,000 MG in DEXTROSE 5%-WATER - 50 ML IVPB ONE (16:16)
[2019-08-15] MEDS ORDERED: CEFTRIAXONE 1 GM/50 ML BAG ONE (16:48)
[2019-08-15] MEDS ORDERED: AZITHROMYCIN IVPB 500 MG/250 ML BAG IVPB ONE (16:48)
[2019-08-15] MEDS ORDERED: SODIUM CHLORIDE 1,000 ML IV STA (17:19)
[2019-08-15] MEDS ORDERED: SODIUM CHLORIDE 1,000 ML IV SCH (17:30)
[2019-08-15] MEDS ORDERED: APIXABAN 5 MG TABLET ONE (21:34)
[2019-08-15] MEDS ORDERED: ATORVASTATIN CA 10 MG TABLET (FP) ONE (21:34)
[2019-08-15] MEDS ORDERED: PIPERACILLIN/TAZOB 3.375 GM 3.375 GM/50 ML BAG IVPB ONE (21:35)
[2019-08-15] MEDS ORDERED: ATORVASTATIN CA 20 MG TABLET (FP) ONE (21:38)
[2019-08-15] MEDS ORDERED: ATORVASTATIN CA 40 MG TABLET (FP) PO SCH ×2 (22:00)
[2019-08-15] MEDS: ATORVASTATIN CA 20 MG TABLET (FP) PO SCH (22:13)
[2019-08-15] MEDS: APIXABAN 5 MG TABLET PO SCH (22:13)
[2019-08-15] MEDS: INSULIN SLIDING SCALE (NOVOLOG) 1 VIAL SQ SCH (22:14)
[2019-08-15] MEDS: PIPERACILLIN/TAZOB 3.375 GM 3.375 GM in DEXTROSE 5%-WATER - 50 ML IVPB SCH (23:37)
[2019-08-15 23:38] LABS: EPI CELLS 10 /uL (0-25.1); HYALINE CASTS 8 /uL (0-3.1); URINE APPEARANCE CLEAR; URINE BACTERIA 40 /uL (0-1359); URINE BILIRUBIN NEGATIVE (NEGATIVE); URINE COLOR DK YELLOW; URINE GLUCOSE (UA) NEGATIVE (NEGATIVE); URINE KETONE NEGATIVE (NEGATIVE); URINE LEUK ESTERASE NEGATIVE (NEGATIVE); URINE NITRITE NEGATIVE (NEGATIVE); URINE PROTEIN 3+ (NEGATIVE); URINE RBC 43 /uL (0-23.9); URINE WBC 18 /uL (0-25.8)
[2019-08-16 00:02] LABS: N-TERMINAL BNP 453.6 pg/ml (5-125)
[2019-08-16] MEDS: PIPERACILLIN/TAZOB 3.375 GM 3.375 GM in DEXTROSE 5%-WATER - 50 ML IVPB SCH ×3 (04:16→18:29)
[2019-08-16] MEDS ORDERED: DEXTROSE 5%-NORMAL SALINE 1,000 ML IV SCH (07:30)
[2019-08-16] MEDS ORDERED: APIXABAN 5 MG TABLET ONE ×2 (08:22→22:50)
[2019-08-16] MEDS ORDERED: PIPERACILLIN/TAZOB 3.375 GM 3.375 GM/50 ML BAG IVPB ONE ×2 (08:22→17:59)
[2019-08-16] MEDS: INSULIN SLIDING SCALE (NOVOLOG) 1 VIAL SQ SCH ×4 (09:49→23:32)
[2019-08-16] MEDS: APIXABAN 5 MG TABLET PO SCH ×2 (09:50→23:32)
[2019-08-16] MEDS ORDERED: SODIUM CHLORIDE 1,000 ML IV SCH (11:30)
[2019-08-16 15:52] LABS: BASO % 0.6 % (0-2.0); EOS % 0.1 % (0-4.5); HEMATOCRIT 43.9 % (35.4-49); HEMOGLOBIN 14.7 GM/dL (11.7-16.9); LYMPH % 22.7 % (8-40); MCH 28.6 pg (25.7-33.7); MCHC 33.4 g/dl (32.0-35.9); MEAN CELL VOLUME 85.7 fl (80-96); MEAN PLT VOLUME 7.7 fl (7.5-11.1); MONO % 15.1 % (3.8-10.2); NEUT % 61.5 % (42.8-82.8); PLATELET COUNT 182 K/MM3 (134-434); RBC 5.12 M/mm3 (4.00-5.60); RDW 14.9 % (11.9-15.9); WHITE BLOOD COUNT 5.8 K/mm3 (4.0-10.0)
[2019-08-16 16:07] LABS: INR 2.04 (0.83-1.09); PROTHROMBIN TIME (PATIENT) 24.2 SEC (9.7-13.0)
[2019-08-16 16:10] LABS: ACTIVATED PTT 37.8 SECONDS (25.2-36.5)
[2019-08-16 16:14] LABS: ALBUMIN 3.2 g/dl (3.4-5.0); BILIRUBIN,TOTAL 0.8 mg/dL (0.2-1); CALCIUM 7.5 mg/dL (8.5-10.1); CREATININE 1.3 mg/dL (0.55-1.3); MAGNESIUM 1.6 mg/dL (1.8-2.4); PHOSPHOROUS 2.8 mg/dL (2.5-4.9); POTASSIUM 4.3 mmol/L (3.5-5.1); TOT PROT 7.5 g/dl (6.4-8.2)
[2019-08-16] MEDS: ACETAMINOPHEN 1000 MG/100 ML VIAL (NON FORMULARY) IVPB PRN (17:33)
[2019-08-16 18:52] LABS: COCAINE, UR NEGATIVE ng/ml (CUTOFF=300); METHADONE, UR NEGATIVE ng/ml (CUTOFF=300); OPIATES, URI NEGATIVE ng/ml (CUTOFF=300); PHENCYCLIDINE,URINE NEGATIVE ng/ml (CUTOFF=25); URINE AMPHETAMINES NEGATIVE ng/ml (CUTOFF=500); URINE BARBITURATES NEGATIVE ng/ml (CUTOFF=200); URINE BENZODIAZEPINES NEGATIVE ng/ml (CUTOFF=200)
[2019-08-16] MEDS ORDERED: ATORVASTATIN CA 20 MG TABLET (FP) ONE (22:50)
[2019-08-16] MEDS ORDERED: DEXTROSE 50%-WATER 25 GM/50 ML DISP.SYRIN ONE (23:15)
[2019-08-16] MEDS: ATORVASTATIN CA 20 MG TABLET (FP) PO SCH (23:32)
[2019-08-16] MEDS ORDERED: DEXTROSE 50%-WATER - 25 GM/50 ML VIAL IVPUSH ONE (23:32)
[2019-08-17] MEDS: DEXTROSE 5%-NORMAL SALINE 1,000 ML IV SCH (01:03)
[2019-08-17] MEDS ORDERED: PIPERACILLIN/TAZOBACTAM 3.375 GM VIAL IVPB ONE ×2 (01:14→09:06)
[2019-08-17] MEDS ORDERED: DEXTROSE 5%-WATER - 50 ML IVPB ONE ×3 (01:14→11:56)
[2019-08-17] MEDS: PIPERACILLIN/TAZOB 3.375 GM 3.375 GM in DEXTROSE 5%-WATER - 50 ML IVPB SCH ×2 (01:32→10:35)
[2019-08-17] MEDS: INSULIN SLIDING SCALE (NOVOLOG) 1 VIAL SQ SCH ×4 (06:28→21:33)
[2019-08-17] MEDS: ACETAMINOPHEN 1000 MG/100 ML VIAL (NON FORMULARY) IVPB PRN (08:06)
[2019-08-17] MEDS: APIXABAN 5 MG TABLET PO SCH ×2 (10:35→21:34)
[2019-08-17] MEDS ORDERED: cefTRIAXone SODIUM 1 GM VIAL ONE (11:56)
[2019-08-17] MEDS: CEFTRIAXONE 1 GM in DEXTROSE 5%-WATER - 50 ML IVPB SCH (12:01)
[2019-08-17] MEDS ORDERED: INSULIN (NOVOLOG) ASPART 100 UNITS/ML 10ML VIAL ONE ×2 (18:09→21:11)
[2019-08-17] MEDS ORDERED: ACETAMINOPHEN 325 MG TABLET (FP) PO ONE (21:02)
[2019-08-17] MEDS: ATORVASTATIN CA 20 MG TABLET (FP) PO SCH (21:32)
[2019-08-18] MEDS: DEXTROSE 5%-NORMAL SALINE 1,000 ML IV SCH (06:07)
[2019-08-18] MEDS: INSULIN SLIDING SCALE (NOVOLOG) 1 VIAL SQ SCH ×4 (06:07→22:22)
[2019-08-18] MEDS ORDERED: DEXTROSE 5%-WATER - 50 ML IVPB ONE (10:05)
[2019-08-18] MEDS ORDERED: cefTRIAXone SODIUM 1 GM VIAL ONE (10:05)
[2019-08-18] MEDS: APIXABAN 5 MG TABLET PO SCH ×2 (10:28→22:18)
[2019-08-18] MEDS: LISINOPRIL 10 MG TABLET PO SCH (10:28)
[2019-08-18] MEDS: ACETAMINOPHEN 325 MG TABLET (FP) PO PRN ×2 (10:28→17:52)
[2019-08-18] MEDS: DOCUSATE SODIUM 100 MG CAPSULE (FP) PO SCH (10:28)
[2019-08-18] MEDS: CEFTRIAXONE 1 GM in DEXTROSE 5%-WATER - 50 ML IVPB SCH (10:30)
[2019-08-18] MEDS: POLYETHYLENE GLYCOL 3350 119 GM BTL PO SCH (10:30)
[2019-08-18] MEDS: ATORVASTATIN CA 20 MG TABLET (FP) PO SCH (22:18)
[2019-08-19] MEDS ORDERED: INSULIN (LEVEMIR) 100 UNITS/ML UNITS SQ SCH (07:00)
[2019-08-19] MEDS: INSULIN SLIDING SCALE (NOVOLOG) 1 VIAL SQ SCH ×4 (07:13→21:49)
[2019-08-19] MEDS ORDERED: cefTRIAXone SODIUM 1 GM VIAL ONE (08:46)
[2019-08-19] MEDS ORDERED: DEXTROSE 5%-WATER - 50 ML IVPB ONE (08:46)
[2019-08-19] MEDS: DOCUSATE SODIUM 100 MG CAPSULE (FP) PO SCH ×2 (08:55→09:34)
[2019-08-19] MEDS: CEFTRIAXONE 1 GM in DEXTROSE 5%-WATER - 50 ML IVPB ONE ×2 (08:56→09:34)
[2019-08-19] MEDS: LISINOPRIL 10 MG TABLET PO SCH ×2 (08:56→09:34)
[2019-08-19] MEDS: APIXABAN 5 MG TABLET PO SCH ×3 (08:56→21:48)
[2019-08-19] MEDS: POLYETHYLENE GLYCOL 3350 119 GM BTL PO SCH (09:34)
[2019-08-19] MEDS ORDERED: INSULIN (NOVOLOG) ASPART 100 UNITS/ML 10ML VIAL ONE (12:56)
[2019-08-19 16:32] LABS: BASO % 0.4 % (0-2.0); EOS % 0.1 % (0-4.5); HEMATOCRIT 40.8 % (35.4-49); HEMOGLOBIN 13.5 GM/dL (11.7-16.9); LYMPH % 17.8 % (8-40); MCH 28.2 pg (25.7-33.7); MCHC 33.1 g/dl (32.0-35.9); MEAN CELL VOLUME 85.4 fl (80-96); MEAN PLT VOLUME 8.3 fl (7.5-11.1); MONO % 11.3 % (3.8-10.2); NEUT % 70.4 % (42.8-82.8); PLATELET COUNT 194 K/MM3 (134-434); RBC 4.78 M/mm3 (4.00-5.60); RDW 15.1 % (11.9-15.9); WHITE BLOOD COUNT 6.8 K/mm3 (4.0-10.0)
[2019-08-19 17:06] LABS: ALBUMIN 2.6 g/dl (3.4-5.0); BILIRUBIN,TOTAL 0.6 mg/dL (0.2-1); BLOOD UREA NITROGEN 14.9 mg/dL (7-18); CALCIUM 7.6 mg/dL (8.5-10.1); MAGNESIUM 1.7 mg/dL (1.8-2.4); PHOSPHOROUS 2.6 mg/dL (2.5-4.9); POTASSIUM 4.3 mmol/L (3.5-5.1); TOT PROT 6.9 g/dl (6.4-8.2)
[2019-08-19] MEDS: ACETAMINOPHEN 325 MG TABLET (FP) PO PRN (21:48)
[2019-08-19] MEDS: ATORVASTATIN CA 20 MG TABLET (FP) PO SCH (21:48)
[2019-08-19 22:04] VITALS: TEMP 97.8
[2019-08-20] MEDS: INSULIN SLIDING SCALE (NOVOLOG) 1 VIAL SQ SCH ×2 (06:21→13:29)
[2019-08-20] MEDS ORDERED: cefTRIAXone SODIUM 1 GM VIAL ONE (09:11)
[2019-08-20] MEDS ORDERED: DEXTROSE 5%-WATER - 50 ML IVPB ONE (09:11)
[2019-08-20] MEDS: DOCUSATE SODIUM 100 MG CAPSULE (FP) PO SCH (09:14)
[2019-08-20] MEDS: LISINOPRIL 10 MG TABLET PO SCH (09:15)
[2019-08-20] MEDS: APIXABAN 5 MG TABLET PO SCH (09:16)
[2019-08-20] MEDS: POLYETHYLENE GLYCOL 3350 119 GM BTL PO SCH (09:17)
[2019-08-20] MEDS ORDERED: CEFTRIAXONE 1 GM in DEXTROSE 5%-WATER - 50 ML IVPB ONE (10:00)
[2019-08-20 12:11] VITALS: BP 100/84; PULSE 56
== END 2019-08-20 15:27 | disposition home or self-care (01) | DRG 194 ==
LOC: JER 09:25 → JERBED 15:12 → J8W 08-17 00:17
PROVIDERS: ADMIT Internal Medicine; ATTEND Internal Medicine
DX: J18.9 Pneumonia, unspecified organism (principal); N17.9 Acute kidney failure, unspecified; N28.0 Ischemia and infarction of kidney; I48.91 Unspecified atrial fibrillation; I10 Essential (primary) hypertension; E78.5 Hyperlipidemia, unspecified; D73.5 Infarction of spleen; I95.1 Orthostatic hypotension; E11.649 Type 2 diabetes mellitus with hypoglycemia without coma
CPT/HCPCS: 36415; 70450-TC; 71045-TC-FY; 71250-TC; 72125-TC; 80053; 80061; 80307; 81003; 82550; 82553; 82803; 82962; 83605; 83721; 83735; 83880; 84100; 84484; 85025; 85610; 85730; 86038; 87040; 87086; 87633; 87798; 87804; 87807; 93005; 93010; 99285-25; J0131; U0002

== ENCOUNTER 2020-09-24 19:14 | Emergency (ER) | payer BC ==
[2020-09-24 19:22] VITALS: BP 141/101; PULSE 64; TEMP 98.4; BMI 32.9
[2020-09-24 20:23] LABS: BASO % 0.9 % (0-2.0); HEMATOCRIT 40.9 % (35.4-49); HEMOGLOBIN 13.5 GM/dL (11.7-16.9); MCH 28.7 pg (25.7-33.7); MCHC 33.1 g/dl (32.0-35.9); MEAN CELL VOLUME 86.7 fl (80-96); MEAN PLT VOLUME 8.1 fl (7.5-11.1); MONO % 7.2 % (3.8-10.2); NEUT % 56.9 % (42.8-82.8); PLATELET COUNT 191 K/MM3 (134-434); RBC 4.71 M/mm3 (4.00-5.60); RDW 13.9 % (11.9-15.9); WHITE BLOOD COUNT 7.3 K/mm3 (4.0-10.0)
[2020-09-24 20:49] LABS: ALBUMIN 3.7 g/dl (3.4-5.0); CALCIUM 8.4 mg/dL (8.5-10.1)
[2020-09-24 20:52] LABS: CREATININE 1.2 mg/dL (0.55-1.3)
[2020-09-24 20:54] LABS: BILIRUBIN,TOTAL 1.2 mg/dL (0.2-1); TOT PROT 7.6 g/dl (6.4-8.2)
== END 2020-09-24 21:46 | disposition left against medical advice (07) ==
LOC: JER 19:14
DX: R07.89 Other chest pain (principal)
CPT/HCPCS: 36415; 71045-TC-FY; 80053; 84484; 85025; 93005; 93010; 99285-25

== ENCOUNTER 2020-11-09 04:38 | Day surgery (SDC) | payer BC ==
[2020-11-07 15:43] VITALS: BMI 32.9
[2020-11-09 10:39] VITALS: BP 125/72; PULSE 64; TEMP 97.9
== END 2020-11-09 09:30 | disposition home or self-care (01) ==
LOC: JASU-ENDO 04:38
PROVIDERS: ATTEND Internal Medicine Gastroenterology
PROC: 0DJD8ZZ Inspection of Lower Intestinal Tract, Via Natural or Artificial Opening Endoscopic (ICD-10-PCS; principal; 2020-11-09 08:00)
DX: Z12.11 Encounter for screening for malignant neoplasm of colon (principal); K64.8 Other hemorrhoids
CPT/HCPCS: 82962

== ENCOUNTER 2021-10-04 16:13 | Emergency (ER) | payer OTHER, BC ==
[2021-10-04 16:46] VITALS: BP 149/77; PULSE 61; TEMP 98.1; BMI 33.4
[2021-10-04] MEDS ORDERED: KETOROLAC TROMETHAMINE 30 MG/1 ML VIAL IM ONE (17:55)
[2021-10-04] MEDS ORDERED: KETOROLAC TROMETHAMINE 30 MG/1 ML VIAL ONE (17:57)
[2021-10-04] MEDS ORDERED: LIDOCAINE 5% TOPICAL PATCH ONE (17:57)
[2021-10-04] MEDS ORDERED: LIDOCAINE 5% TOPICAL PATCH TP ONE (17:57)
[2021-10-04] MEDS ORDERED: LIDOCAINE PATCH REMOVAL MC SCH (22:00)
== END 2021-10-04 18:27 | disposition home or self-care (01) ==
LOC: JERFT 16:13
PROC: 3E0233Z Introduction of Anti-inflammatory into Muscle, Percutaneous Approach (ICD-10-PCS; principal; 2021-10-04)
DX: S46.812A Strain of other muscles, fascia and tendons at shoulder and upper arm level, left arm, initial encounter (principal); M54.50 Low back pain, unspecified; V49.50XA Passenger injured in collision with unspecified motor vehicles in traffic accident, initial encounter
CPT/HCPCS: 72100-TC-FY; 73030-TC-LT-FY; 99284-25

== ENCOUNTER 2022-11-11 12:14 | Emergency (ER) | payer BC, OTHER ==
[2022-11-11 12:20] VITALS: BP 121/52; PULSE 61; RESP 18; TEMP 98.3; BMI 34.2
== END 2022-11-11 13:44 | disposition home or self-care (01) ==
LOC: JER 12:14 → JERFT 12:14
DX: R05.9 Cough, unspecified (principal); R07.9 Chest pain, unspecified
CPT/HCPCS: 71046-TC-FY; 99283-25

== ENCOUNTER 2023-04-26 19:50 | Emergency (ER) | payer BC ==
[2023-04-26 19:56] VITALS: BP 151/88; PULSE 64; RESP 18; TEMP 98.4; BMI 36.5
[2023-04-26] MEDS ORDERED: SULFAMETHOXAZOLE/TRIMETHOPRIM 800MG/160MG D.S. TABLET PO ONE (21:10)
[2023-04-26] MEDS ORDERED: AMOX TR/POT CLAV 875MG/125MG TABLETS (FP) PO ONE (21:10)
[2023-04-26] MEDS ORDERED: SULFAMETHOXAZOLE/TRIMETHOPRIM 800MG/160MG D.S. TABLET ONE (21:19)
[2023-04-26] MEDS ORDERED: AMOX TR/POT CLAV 875MG/125MG TABLETS (FP) ONE (21:19)
[2023-04-26] MEDS ORDERED: ACETAMINOPHEN 325 MG TABLET (FP) PO ONE (21:19)
[2023-04-26] MEDS ORDERED: ACETAMINOPHEN 325 MG TABLET (FP) ONE (21:24)
== END 2023-04-26 22:22 | disposition home or self-care (01) ==
LOC: JER 19:50
DX: L03.115 Cellulitis of right lower limb (principal)
CPT/HCPCS: 99283-25

== ENCOUNTER 2023-05-19 12:19 | Inpatient (IN) | payer BC ==
[2023-05-19 12:34] VITALS: BMI 33.4
[2023-05-19] MEDS ORDERED: VANCOMYCIN 1,000 MG in DEXTROSE 5%-WATER - 250 ML IVPB ONE (14:18)
[2023-05-19] MEDS ORDERED: PIPERACILLIN/TAZOB 4.5 GM 4.5 GM in DEXTROSE 5%-WATER 100 ML IVPB ONE (14:19)
[2023-05-19] MEDS ORDERED: PIPERACILLIN/TAZOB 4.5 GM 4.5 GM/100 ML BAG IVPB ONE (14:41)
[2023-05-19] MEDS ORDERED: VANCOMYCIN 1 GRAM (PRE-DOCKED) 1,000 MG/250 ML BAG IVPB ONE (14:41)
[2023-05-19 14:43] LABS: BASO % 1.2 % (0-2.0); EOS % 1.1 % (0-4.5); HEMATOCRIT 46.7 % (35.4-49); HEMOGLOBIN 15.4 GM/dL (11.7-16.9); LYMPH % 29.3 % (8-40); MCHC 32.9 g/dl (32.0-35.9); MEAN CELL VOLUME 88.2 fl (80-96); MEAN PLT VOLUME 7.7 fl (7.5-11.1); MONO % 10.9 % (3.8-10.2); NEUT % 57.5 % (42.8-82.8); PLATELET COUNT 182 10^3/uL (134-434); RDW 15.8 % (11.9-15.9); WHITE BLOOD COUNT 8.2 K/mm3 (4.0-10.0)
[2023-05-19 15:15] LABS: POTASSIUM 4.7 mmol/L (3.5-5.1)
[2023-05-19 15:17] LABS: CALCIUM 9.7 mg/dL (8.5-10.1)
[2023-05-19 15:18] LABS: ALBUMIN 3.6 g/dl (3.4-5.0); BLOOD UREA NITROGEN 16.1 mg/dL (7-18)
[2023-05-19 15:21] LABS: CREATININE 1.6 mg/dL (0.55-1.3)
[2023-05-19 15:22] LABS: BILIRUBIN,TOTAL 1.1 mg/dL (0.2-1); TOT PROT 8.6 g/dl (6.4-8.2)
[2023-05-19] MEDS ORDERED: SODIUM CHLORIDE 0.9% 500 ML INFUS.BAG IV ONE (15:27)
[2023-05-19] MEDS ORDERED: ATORVASTATIN CA 10 MG TABLET (FP) ONE (21:33)
[2023-05-19] MEDS ORDERED: DOXYCYCLINE HYCLATE 100 MG VIAL ONE (21:33)
[2023-05-19] MEDS: ATORVASTATIN CA 10 MG TABLET (FP) PO SCH (22:13)
[2023-05-19] MEDS: DOXYCYCLINE INJECTION 100 MG in DEXTROSE 5%-WATER 100 ML IVPB SCH (22:13)
[2023-05-20] MEDS: LOSARTAN POTASSIUM 25 MG TABLET PO SCH (09:08)
[2023-05-20] MEDS: DOXYCYCLINE INJECTION 100 MG in DEXTROSE 5%-WATER 100 ML IVPB SCH ×2 (09:08→22:31)
[2023-05-20 09:53] LABS: HEMATOCRIT 46.2 % (35.4-49); HEMOGLOBIN 15.4 GM/dL (11.7-16.9); LYMPH % 22.8 % (8-40); MCH 29.4 pg (25.7-33.7); MCHC 33.3 g/dl (32.0-35.9); MEAN CELL VOLUME 88.3 fl (80-96); MEAN PLT VOLUME 8.3 fl (7.5-11.1); NEUT % 65.2 % (42.8-82.8); PLATELET COUNT 167 10^3/uL (134-434); RBC 5.23 M/mm3 (4.00-5.60); RDW 15.7 % (11.9-15.9); WHITE BLOOD COUNT 7.1 K/mm3 (4.0-10.0)
[2023-05-20] MEDS ORDERED: CEFEPIME HCL 2 GM VIAL (RESTRICTED TO ID) IVPB SCH (10:00)
[2023-05-20] MEDS ORDERED: CEFEPIME 2 GM in DEXTROSE 5%-WATER 100 ML IVPB ONE (10:00)
[2023-05-20 10:17] LABS: POTASSIUM 4.1 mmol/L (3.5-5.1)
[2023-05-20 10:19] LABS: BLOOD UREA NITROGEN 12.9 mg/dL (7-18)
[2023-05-20 10:23] LABS: CREATININE 1.2 mg/dL (0.55-1.3)
[2023-05-20] MEDS: INSULIN (LEVEMIR) 100 UNITS/ML UNITS SQ SCH ×2 (11:51→22:29)
[2023-05-20] MEDS: INSULIN SLIDING SCALE (NOVOLOG) 1 VIAL SQ SCH ×2 (15:58→22:30)
[2023-05-20] MEDS: RIVAROXABAN 20 MG TABLET PO SCH (17:42)
[2023-05-20] MEDS: CEFTRIAXONE 1 GM in DEXTROSE 5%-WATER - 50 ML IVPB SCH (18:54)
[2023-05-20] MEDS: ATORVASTATIN CA 10 MG TABLET (FP) PO SCH (22:31)
[2023-05-21] MEDS: INSULIN SLIDING SCALE (NOVOLOG) 1 VIAL SQ SCH ×3 (06:44→17:04)
[2023-05-21 09:38] VITALS: TEMP 98
[2023-05-21] MEDS ORDERED: cefTRIAXone SODIUM 1 GM VIAL ONE (10:45)
[2023-05-21] MEDS: LOSARTAN POTASSIUM 25 MG TABLET PO SCH (10:49)
[2023-05-21] MEDS: CEFTRIAXONE 1 GM in DEXTROSE 5%-WATER - 50 ML IVPB SCH (10:49)
[2023-05-21] MEDS: INSULIN (LEVEMIR) 100 UNITS/ML UNITS SQ SCH (10:50)
[2023-05-21 11:55] LABS: BASO % 0.6 % (0-2.0); EOS % 1.2 % (0-4.5); HEMATOCRIT 45.4 % (35.4-49); HEMOGLOBIN 14.7 GM/dL (11.7-16.9); LYMPH % 24.9 % (8-40); MCH 28.7 pg (25.7-33.7); MCHC 32.5 g/dl (32.0-35.9); MEAN CELL VOLUME 88.3 fl (80-96); MEAN PLT VOLUME 8.3 fl (7.5-11.1); MONO % 11.2 % (3.8-10.2); NEUT % 62.1 % (42.8-82.8); PLATELET COUNT 171 10^3/uL (134-434); RBC 5.14 M/mm3 (4.00-5.60); RDW 15.4 % (11.9-15.9); WHITE BLOOD COUNT 7.8 K/mm3 (4.0-10.0)
[2023-05-21 12:13] LABS: POTASSIUM 4.2 mmol/L (3.5-5.1)
[2023-05-21 12:15] LABS: CALCIUM 9.3 mg/dL (8.5-10.1)
[2023-05-21 12:16] LABS: BLOOD UREA NITROGEN 19.5 mg/dL (7-18); MAGNESIUM 1.5 mg/dL (1.8-2.4)
[2023-05-21 12:19] LABS: CREATININE 1.3 mg/dL (0.55-1.3); PHOSPHOROUS 3.3 mg/dL (2.5-4.9)
[2023-05-21] MEDS: DOXYCYCLINE INJECTION 100 MG in DEXTROSE 5%-WATER 100 ML IVPB SCH (12:24)
[2023-05-21 16:16] VITALS: BP 132/72; PULSE 49; RESP 16
[2023-05-21] MEDS: RIVAROXABAN 20 MG TABLET PO SCH (17:05)
[2023-05-21] MEDS ORDERED: DOXYCYCLINE HYCLATE 100 MG CAPSULE PO SCH (18:00)
== END 2023-05-21 18:11 | disposition home or self-care (01) | DRG 914 ==
LOC: JERFT 12:19 → JER 12:19 → JERBED 16:04 → J5S 05-20 01:11
PROVIDERS: ADMIT Internal Medicine; ATTEND Internal Medicine
DX: S99.921A Unspecified injury of right foot, initial encounter (principal); L03.115 Cellulitis of right lower limb; N17.9 Acute kidney failure, unspecified; X58.XXXA Exposure to other specified factors, initial encounter; Y93.9 Activity, unspecified; Y92.89 Other specified places as the place of occurrence of the external cause; Y99.9 Unspecified external cause status; E66.9 Obesity, unspecified; Z68.33 Body mass index [BMI] 33.0-33.9, adult; E11.9 Type 2 diabetes mellitus without complications; I10 Essential (primary) hypertension; E78.5 Hyperlipidemia, unspecified
CPT/HCPCS: 36415; 73610-TC-RT-FY; 73630-TC-RT-FY; 80048; 80053; 82962; 83036; 83735; 84100; 85025; 85651; 86140; 87070; 87077; 87205; 93925-TC; 99285-25

== ENCOUNTER 2023-08-09 17:03 | Inpatient (IN) | payer BC ==
[2023-08-09] MEDS ORDERED: IBUPROFEN 600 MG TABLET (FP) PO ONE (22:40)
[2023-08-09 22:41] LABS: BASO % 0.6 % (0-2.0); EOS % 0.7 % (0-4.5); HEMATOCRIT 40.3 % (35.4-49); HEMOGLOBIN 13.4 GM/dL (11.7-16.9); LYMPH % 27.1 % (8-40); MCH 29.8 pg (25.7-33.7); MCHC 33.2 g/dl (32.0-35.9); MEAN CELL VOLUME 89.6 fl (80-96); MEAN PLT VOLUME 8.1 fl (7.5-11.1); MONO % 8.7 % (3.8-10.2); NEUT % 62.9 % (42.8-82.8); PLATELET COUNT 212 10^3/uL (134-434); RDW 14.5 % (11.9-15.9); WHITE BLOOD COUNT 9.2 K/mm3 (4.0-10.0)
[2023-08-09] MEDS: IBUPROFEN 600 MG TABLET (FP) PO ONE (22:51)
[2023-08-09 23:10] LABS: POTASSIUM 3.9 mmol/L (3.5-5.1)
[2023-08-09 23:13] LABS: BLOOD UREA NITROGEN 21.4 mg/dL (7-18); CALCIUM 9.1 mg/dL (8.5-10.1)
[2023-08-09 23:14] LABS: ALBUMIN 3.5 g/dl (3.4-5.0)
[2023-08-09 23:17] LABS: CREATININE 1.3 mg/dL (0.55-1.3)
[2023-08-09 23:18] LABS: BILIRUBIN,TOTAL 1.2 mg/dL (0.2-1); TOT PROT 8.5 g/dl (6.4-8.2)
[2023-08-10 01:37] VITALS: BMI 36.5
[2023-08-10 01:48] LABS: BILIRUBIN,DIRECT 0.4 mg/dL (0.0-0.2)
[2023-08-10] MEDS: LOSARTAN POTASSIUM 25 MG TABLET PO SCH (10:01)
[2023-08-10] MEDS: RIVAROXABAN 20 MG TABLET PO SCH (10:01)
[2023-08-10] MEDS: CEFTRIAXONE 2 GM in DEXTROSE 5%-WATER 100 ML IVPB SCH (13:18)
[2023-08-10] MEDS: ATORVASTATIN CA 10 MG TABLET (FP) PO SCH (21:40)
[2023-08-11 10:01] LABS: BASO % 0.6 % (0-2.0); EOS % 0.7 % (0-4.5); HEMATOCRIT 41.6 % (35.4-49); LYMPH % 23.1 % (8-40); MCHC 33.7 g/dl (32.0-35.9); MEAN CELL VOLUME 89.2 fl (80-96); MEAN PLT VOLUME 7.9 fl (7.5-11.1); MONO % 7.3 % (3.8-10.2); NEUT % 68.3 % (42.8-82.8); PLATELET COUNT 215 10^3/uL (134-434); RBC 4.67 M/mm3 (4.00-5.60); RDW 14.4 % (11.9-15.9); WHITE BLOOD COUNT 7.8 K/mm3 (4.0-10.0)
[2023-08-11 10:15] LABS: POTASSIUM 4.3 mmol/L (3.5-5.1)
[2023-08-11 10:19] LABS: CALCIUM 8.8 mg/dL (8.5-10.1)
[2023-08-11 10:20] LABS: BLOOD UREA NITROGEN 16.1 mg/dL (7-18)
[2023-08-11 10:23] LABS: CREATININE 1.2 mg/dL (0.55-1.3)
[2023-08-11] MEDS: COLLAGENASE CLOSTRIDIUM HIST. 30 GRAMS TUBE TP SCH (16:23)
[2023-08-11] MEDS: ACETAMINOPHEN 325 MG TABLET (FP) PO ONE (21:20)
[2023-08-12 08:19] LABS: POTASSIUM 4.4 mmol/L (3.5-5.1)
[2023-08-12 08:30] LABS: ALBUMIN 3.4 g/dl (3.4-5.0); BLOOD UREA NITROGEN 16.9 mg/dL (7-18)
[2023-08-12 08:33] LABS: CREATININE 1.3 mg/dL (0.55-1.3)
[2023-08-12 08:35] LABS: BILIRUBIN,TOTAL 0.7 mg/dL (0.2-1); TOT PROT 8.3 g/dl (6.4-8.2)
[2023-08-12] MEDS: ACETAMINOPHEN 325 MG TABLET (FP) PO PRN (14:48)
[2023-08-13 06:19] VITALS: RESP 18
[2023-08-13 08:41] LABS: POTASSIUM 4.3 mmol/L (3.5-5.1)
[2023-08-13 08:46] LABS: CALCIUM 8.8 mg/dL (8.5-10.1)
[2023-08-13 08:47] LABS: ALBUMIN 3.1 g/dl (3.4-5.0)
[2023-08-13 08:50] LABS: CREATININE 1.1 mg/dL (0.55-1.3)
[2023-08-13 08:52] LABS: BILIRUBIN,TOTAL 0.8 mg/dL (0.2-1); TOT PROT 7.5 g/dl (6.4-8.2)
[2023-08-14 07:10] VITALS: BP 138/58; PULSE 65; TEMP 97.8
[2023-08-14] MEDS ORDERED: RIVAROXABAN 20 MG TABLET PO SCH (18:00)
== END 2023-08-14 15:01 | disposition home or self-care (01) | DRG 639 ==
LOC: JER 17:03 → JERBED 22:02 → J6S 08-10 00:53
PROVIDERS: ADMIT Internal Medicine; ATTEND Internal Medicine
DX: E10.621 Type 1 diabetes mellitus with foot ulcer (principal); L97.529 Non-pressure chronic ulcer of other part of left foot with unspecified severity; L97.519 Non-pressure chronic ulcer of other part of right foot with unspecified severity; I10 Essential (primary) hypertension; E78.5 Hyperlipidemia, unspecified; I48.91 Unspecified atrial fibrillation
CPT/HCPCS: 36415; 71046-TC-FY; 73030-TC-RT-FY; 73630-TC-LT; 73630-TC-RT-FY; 73718-TC-LT; 73718-TC-RT; 75635-TC; 78315-TC; 80048; 80053; 80061; 82248; 82962; 83036; 83605; 85025; 85651; 86140; 87040; 87081; 93005; 93010; 93925-TC; 99285-25; A9503; Q9967

== ENCOUNTER 2023-08-22 06:47 | Inpatient (IN) | payer BC ==
[2023-08-22 06:57] VITALS: BMI 35.2
[2023-08-22 08:43] LABS: BASO % 0.9 % (0-2.0); EOS % 0.8 % (0-4.5); HEMATOCRIT 39.3 % (35.4-49); HEMOGLOBIN 12.9 GM/dL (11.7-16.9); LYMPH % 24.3 % (8-40); MCH 29.4 pg (25.7-33.7); MCHC 32.7 g/dl (32.0-35.9); MEAN CELL VOLUME 89.8 fl (80-96); MEAN PLT VOLUME 9.7 fl (7.5-11.1); MONO % 8.7 % (3.8-10.2); NEUT % 65.3 % (42.8-82.8); PLATELET COUNT 195 10^3/uL (134-434); RBC 4.38 M/mm3 (4.00-5.60); RDW 14.5 % (11.9-15.9); WHITE BLOOD COUNT 8.4 K/mm3 (4.0-10.0)
[2023-08-22 08:48] LABS: POTASSIUM 4.4 mmol/L (3.5-5.1)
[2023-08-22 08:50] LABS: ALBUMIN 3.2 g/dl (3.4-5.0); CALCIUM 8.6 mg/dL (8.5-10.1)
[2023-08-22 08:51] LABS: BLOOD UREA NITROGEN 18.4 mg/dL (7-18)
[2023-08-22 08:54] LABS: CREATININE 1.1 mg/dL (0.55-1.3)
[2023-08-22 08:55] LABS: TOT PROT 7.9 g/dl (6.4-8.2)
[2023-08-22 08:56] LABS: BILIRUBIN,TOTAL 0.8 mg/dL (0.2-1)
[2023-08-22 09:06] LABS: ACTIVATED PTT 41.3 SECONDS (25.2-36.5); INR 2.17 (0.83-1.09)
[2023-08-22 11:03] LABS: ERYTHROCYTE SEDIMENTATION RATE 44 mm/hr (0-20)
[2023-08-22] MEDS: CEFTRIAXONE 1 GM in DEXTROSE 5%-WATER - 50 ML IVPB SCH (16:39)
[2023-08-23 08:35] LABS: BASO % 0.9 % (0-2.0); EOS % 0.9 % (0-4.5); HEMATOCRIT 41.4 % (35.4-49); HEMOGLOBIN 13.6 GM/dL (11.7-16.9); MCH 29.5 pg (25.7-33.7); MCHC 32.9 g/dl (32.0-35.9); MEAN CELL VOLUME 89.8 fl (80-96); MEAN PLT VOLUME 8.3 fl (7.5-11.1); MONO % 8.4 % (3.8-10.2); NEUT % 62.8 % (42.8-82.8); PLATELET COUNT 211 10^3/uL (134-434); RBC 4.61 M/mm3 (4.00-5.60); RDW 14.1 % (11.9-15.9); WHITE BLOOD COUNT 7.1 K/mm3 (4.0-10.0)
[2023-08-23 08:46] LABS: POTASSIUM 4.2 mmol/L (3.5-5.1)
[2023-08-23 08:57] LABS: CALCIUM 8.7 mg/dL (8.5-10.1)
[2023-08-23 08:58] LABS: ALBUMIN 3.2 g/dl (3.4-5.0); BLOOD UREA NITROGEN 13.9 mg/dL (7-18); MAGNESIUM 1.9 mg/dL (1.8-2.4)
[2023-08-23 09:01] LABS: CREATININE 1.1 mg/dL (0.55-1.3); PHOSPHOROUS 2.8 mg/dL (2.5-4.9)
[2023-08-23 09:02] LABS: TOT PROT 7.8 g/dl (6.4-8.2)
[2023-08-23] MEDS: ENOXAPARIN NA (PORCINE) 40 MG/0.4 ML DISP.SYRIN SQ SCH (09:11)
[2023-08-23] MEDS: LOSARTAN POTASSIUM 25 MG TABLET PO SCH (09:11)
[2023-08-23] MEDS ORDERED: INSULIN PUMP SQ SCH ×2 (10:00→15:52)
[2023-08-23] MEDS: INSULIN PUMP SQ SCH (15:58)
[2023-08-23] MEDS: ATORVASTATIN CA 10 MG TABLET (FP) PO SCH (21:06)
[2023-08-23] MEDS: ENOXAPARIN NA (PORCINE) 100 MG/1 ML DISP.SYRIN SQ SCH (21:07)
[2023-08-24 08:54] LABS: BASO % 0.9 % (0-2.0); EOS % 1.6 % (0-4.5); HEMATOCRIT 41.6 % (35.4-49); HEMOGLOBIN 14.1 GM/dL (11.7-16.9); LYMPH % 32.7 % (8-40); MCH 29.8 pg (25.7-33.7); MCHC 33.9 g/dl (32.0-35.9); MEAN CELL VOLUME 87.9 fl (80-96); MONO % 8.4 % (3.8-10.2); NEUT % 56.4 % (42.8-82.8); PLATELET COUNT 233 10^3/uL (134-434); RBC 4.74 M/mm3 (4.00-5.60); RDW 14.2 % (11.9-15.9)
[2023-08-24 09:09] LABS: POTASSIUM 4.3 mmol/L (3.5-5.1)
[2023-08-24 09:11] LABS: ALBUMIN 3.1 g/dl (3.4-5.0); BLOOD UREA NITROGEN 16.3 mg/dL (7-18)
[2023-08-24 09:14] LABS: CREATININE 1.2 mg/dL (0.55-1.3)
[2023-08-24 09:16] LABS: BILIRUBIN,TOTAL 0.8 mg/dL (0.2-1); TOT PROT 8.1 g/dl (6.4-8.2)
[2023-08-24] MEDS: CEFTRIAXONE 2 GM in DEXTROSE 5%-WATER 100 ML IVPB SCH (22:24)
[2023-08-24] MEDS: VANCOMYCIN/WATER FOR INJ (PEG) 1,000 MG/200 ML BAG IVPB SCH (22:24)
[2023-08-25 09:51] LABS: INR 1.38 (0.83-1.09)
[2023-08-26] MEDS ORDERED: ONDANSETRON 4 MG/2 ML VIAL IVPUSH PRN ×4 (08:20→11:43)
[2023-08-26] MEDS ORDERED: PROMETHAZINE HCL 25 MG/1 ML VIAL IVPB PRN ×2 (08:20→11:43)
[2023-08-26] MEDS ORDERED: LACTATED RINGERS SOLUTION 1,000 ML IV SCH ×4 (08:30→11:43)
[2023-08-26] MEDS ORDERED: VANCOMYCIN 1,000 MG VIAL (RESTRICTED TO ID ONLY) ONE (09:27)
[2023-08-26] MEDS ORDERED: BUPIVACAINE HCL/PF 0.5% (5MG/ML) 10 ML VIAL ONE (09:28)
[2023-08-26] MEDS ORDERED: LIDOCAINE HCL 1%, 10 MG/ML (20ML VIAL) ONE (09:28)
[2023-08-26] MEDS ORDERED: MIDAZOLAM HCL 2 MG/2 ML SINGLE DOSE VIAL ONE (09:58)
[2023-08-26] MEDS ORDERED: LIDOCAINE HCL/PF 2% SDV 5ML VIAL ONE (09:58)
[2023-08-26] MEDS ORDERED: FENTANYL CITRATE/PF 50 MCG/ML VIAL ONE (09:58)
[2023-08-26] MEDS ORDERED: PROPOFOL 60 ML ONE (09:58)
[2023-08-26] MEDS: BUPIVACAINE HCL/PF 0.5% (5MG/ML) 10 ML VIAL IJ ONE (10:13)
[2023-08-26] MEDS: LIDOCAINE HCL 1%, 10 MG/ML (50 mL VIAL) INF ONE (10:13)
[2023-08-26] MEDS ORDERED: ONDANSETRON 4 MG/2 ML VIAL ONE (10:26)
[2023-08-26] MEDS ORDERED: KETOROLAC TROMETHAMINE 30 MG/1 ML VIAL ONE (10:26)
[2023-08-26] MEDS ORDERED: ACETAMINOPHEN 1000 MG/100 ML BAG IVPB ONE (11:23)
[2023-08-26 14:50] VITALS: RESP 18
[2023-08-26] MEDS ORDERED: KETOROLAC TROMETHAMINE 30 MG/1 ML VIAL IVPUSH PRN (16:14)
[2023-08-26] MEDS: KETOROLAC TROMETHAMINE 30 MG/1 ML VIAL IVPUSH PRN (18:36)
[2023-08-26] MEDS: VANCOMYCIN/WATER FOR INJ (PEG) 1,000 MG/200 ML BAG IVPB SCH (18:36)
[2023-08-26] MEDS: ACETAMINOPHEN 325 MG TABLET (FP) PO PRN (21:57)
[2023-08-26] MEDS: ATORVASTATIN CA 10 MG TABLET (FP) PO SCH (21:58)
[2023-08-27] MEDS: ACETAMINOPHEN 1000 MG/100 ML BAG IVPB ONE (02:50)
[2023-08-27 09:58] LABS: BASO % 0.8 % (0-2.0); EOS % 1.5 % (0-4.5); HEMATOCRIT 40.6 % (35.4-49); HEMOGLOBIN 13.3 GM/dL (11.7-16.9); LYMPH % 19.5 % (8-40); MCH 29.4 pg (25.7-33.7); MCHC 32.8 g/dl (32.0-35.9); MEAN CELL VOLUME 89.6 fl (80-96); MEAN PLT VOLUME 7.9 fl (7.5-11.1); MONO % 8.8 % (3.8-10.2); NEUT % 69.4 % (42.8-82.8); PLATELET COUNT 215 10^3/uL (134-434); RBC 4.53 M/mm3 (4.00-5.60); RDW 14.4 % (11.9-15.9); WHITE BLOOD COUNT 7.3 K/mm3 (4.0-10.0)
[2023-08-27 10:21] LABS: POTASSIUM 4.5 mmol/L (3.5-5.1)
[2023-08-27 10:26] LABS: CALCIUM 8.3 mg/dL (8.5-10.1)
[2023-08-27 10:28] LABS: ALBUMIN 2.9 g/dl (3.4-5.0); BLOOD UREA NITROGEN 21.3 mg/dL (7-18)
[2023-08-27 10:30] LABS: CREATININE 1.2 mg/dL (0.55-1.3)
[2023-08-27 10:31] LABS: BILIRUBIN,TOTAL 0.6 mg/dL (0.2-1); TOT PROT 7.3 g/dl (6.4-8.2)
[2023-08-27] MEDS: LOSARTAN POTASSIUM 25 MG TABLET PO SCH (10:36)
[2023-08-27] MEDS: CEFTRIAXONE 2 GM in DEXTROSE 5%-WATER 100 ML IVPB SCH (10:36)
[2023-08-27 11:15] LABS: ERYTHROCYTE SEDIMENTATION RATE 34 mm/hr (0-20)
[2023-08-27] MEDS: KETOROLAC TROMETHAMINE 30 MG/1 ML VIAL IVPUSH PRN (13:28)
[2023-08-27] MEDS: POLYETHYLENE GLYCOL (HEALTHYLAX) 3350 17 GM PACKET PO SCH (15:07)
[2023-08-27] MEDS: ACETAMINOPHEN 325 MG TABLET (FP) PO SCH (18:57)
[2023-08-27] MEDS: oxyCODONE HCL 5 MG TABLET PO PRN (18:58)
[2023-08-27] MEDS: IBUPROFEN 600 MG TABLET (FP) PO PRN (20:32)
[2023-08-27] MEDS: GABAPENTIN 100 MG CAPSULE PO SCH (21:38)
[2023-08-27] MEDS: SENNOSIDES 8.6MG TABLET (FP) PO SCH (21:38)
[2023-08-28] MEDS: RIVAROXABAN 20 MG TABLET PO SCH (09:27)
[2023-08-28 10:02] LABS: BASO % 0.5 % (0-2.0); EOS % 0.5 % (0-4.5); HEMATOCRIT 38.9 % (35.4-49); HEMOGLOBIN 12.7 GM/dL (11.7-16.9); LYMPH % 12.5 % (8-40); MCH 29.6 pg (25.7-33.7); MCHC 32.8 g/dl (32.0-35.9); MEAN CELL VOLUME 90.4 fl (80-96); MEAN PLT VOLUME 8.3 fl (7.5-11.1); MONO % 7.8 % (3.8-10.2); NEUT % 78.7 % (42.8-82.8); PLATELET COUNT 195 10^3/uL (134-434); RDW 14.1 % (11.9-15.9); WHITE BLOOD COUNT 10.9 K/mm3 (4.0-10.0)
[2023-08-28 10:17] LABS: POTASSIUM 4.2 mmol/L (3.5-5.1)
[2023-08-28 10:22] LABS: ALBUMIN 3.1 g/dl (3.4-5.0); BLOOD UREA NITROGEN 17.8 mg/dL (7-18); CALCIUM 8.6 mg/dL (8.5-10.1)
[2023-08-28 10:25] LABS: CREATININE 1.1 mg/dL (0.55-1.3)
[2023-08-28 10:27] LABS: BILIRUBIN,TOTAL 0.7 mg/dL (0.2-1)
[2023-08-28 10:28] LABS: TOT PROT 7.5 g/dl (6.4-8.2)
[2023-08-28] MEDS: AMOX TR/POT CLAV 875MG/125MG TABLETS (FP) PO SCH (17:04)
[2023-08-29 08:06] LABS: BASO % 0.5 % (0-2.0); EOS % 0.6 % (0-4.5); HEMATOCRIT 37.7 % (35.4-49); HEMOGLOBIN 12.3 GM/dL (11.7-16.9); LYMPH % 19.8 % (8-40); MCH 29.1 pg (25.7-33.7); MCHC 32.6 g/dl (32.0-35.9); MEAN CELL VOLUME 89.3 fl (80-96); MEAN PLT VOLUME 8.1 fl (7.5-11.1); MONO % 9.9 % (3.8-10.2); NEUT % 69.2 % (42.8-82.8); PLATELET COUNT 173 10^3/uL (134-434); RBC 4.22 M/mm3 (4.00-5.60); RDW 14.3 % (11.9-15.9); WHITE BLOOD COUNT 10.1 K/mm3 (4.0-10.0)
[2023-08-29] MEDS: GABAPENTIN 100 MG CAPSULE PO SCH (14:06)
[2023-08-29] MEDS: oxyCODONE HCL 5 MG TABLET PO PRN (16:32)
[2023-08-30 09:01] VITALS: BP 138/88; PULSE 63; TEMP 98.7
[2023-08-30 10:03] LABS: HEMATOCRIT 38.1 % (35.4-49); HEMOGLOBIN 12.9 GM/dL (11.7-16.9); MCH 29.9 pg (25.7-33.7); MCHC 33.8 g/dl (32.0-35.9); MEAN CELL VOLUME 88.5 fl (80-96); MEAN PLT VOLUME 8.4 fl (7.5-11.1); PLATELET COUNT 182 10^3/uL (134-434); RBC 4.31 M/mm3 (4.00-5.60); RDW 14.1 % (11.9-15.9)
[2023-08-30] MEDS ORDERED: RIVAROXABAN 20 MG TABLET PO SCH (18:00)
== END 2023-08-30 14:31 | disposition home or self-care (01) | DRG 617 ==
LOC: JER 06:47 → JERBED 07:30 → J6S 10:47
PROVIDERS: ADMIT Internal Medicine; ATTEND Internal Medicine
PROC: 0Y6Q0Z3 Detachment at Left 1st Toe, Low, Open Approach (ICD-10-PCS; principal; 2023-08-23)
PROC: 0Y6P0Z3 Detachment at Right 1st Toe, Low, Open Approach (ICD-10-PCS; 2023-08-23)
DX: E10.621 Type 1 diabetes mellitus with foot ulcer (principal); M86.171 Other acute osteomyelitis, right ankle and foot; M86.172 Other acute osteomyelitis, left ankle and foot; M87.878 Other osteonecrosis, left toe(s); M87.877 Other osteonecrosis, right toe(s); E10.69 Type 1 diabetes mellitus with other specified complication; I48.91 Unspecified atrial fibrillation; G89.18 Other acute postprocedural pain; I10 Essential (primary) hypertension; Z86.73 Personal history of transient ischemic attack (TIA), and cerebral infarction without residual deficits
CPT/HCPCS: 36415; 73630-TC-LT; 73630-TC-RT-FY; 73718-TC-LT; 73718-TC-RT; 80053; 82962; 83735; 84100; 85025; 85027; 85610; 85651; 85730; 86140; 86850; 86900; 86901; 87635; 88305-TC; 88311-TC; 93005; 93010; 94760; 97116-GP; 97162-GP; 99285-25; G0480

== ENCOUNTER 2023-09-06 17:12 | Emergency (ER) | payer BC, OTHER ==
[2023-09-06 17:22] VITALS: TEMP 98.6; BMI 34.9
[2023-09-06 18:13] LABS: BASO % 1.1 % (0-2.0); EOS % 1.4 % (0-4.5); HEMATOCRIT 39.9 % (35.4-49); HEMOGLOBIN 12.9 GM/dL (11.7-16.9); LYMPH % 26.6 % (8-40); MCH 29.1 pg (25.7-33.7); MCHC 32.3 g/dl (32.0-35.9); MEAN CELL VOLUME 89.9 fl (80-96); MEAN PLT VOLUME 8.4 fl (7.5-11.1); MONO % 10.2 % (3.8-10.2); NEUT % 60.7 % (42.8-82.8); PLATELET COUNT 229 10^3/uL (134-434); RBC 4.44 M/mm3 (4.00-5.60); RDW 14.1 % (11.9-15.9)
[2023-09-06 18:18] LABS: INR 3.76 (0.83-1.09)
[2023-09-06 18:21] LABS: ACTIVATED PTT 52.9 SECONDS (25.2-36.5)
[2023-09-06 18:34] LABS: POTASSIUM 5.3 mmol/L (3.5-5.1)
[2023-09-06 18:36] LABS: ALBUMIN 3.4 g/dl (3.4-5.0); BLOOD UREA NITROGEN 16.5 mg/dL (7-18); CALCIUM 8.8 mg/dL (8.5-10.1)
[2023-09-06 18:39] LABS: CREATININE 1.3 mg/dL (0.55-1.3)
[2023-09-06 18:41] LABS: BILIRUBIN,TOTAL 0.8 mg/dL (0.2-1); TOT PROT 8.8 g/dl (6.4-8.2)
[2023-09-06 21:27] VITALS: BP 176/92; PULSE 54; RESP 16
== END 2023-09-06 21:32 | disposition short-term general hospital (02) ==
LOC: JER 17:12
DX: I48.91 Unspecified atrial fibrillation (principal); R00.1 Bradycardia, unspecified; Z20.822 Contact with and (suspected) exposure to COVID-19
CPT/HCPCS: 0241U-QW; 36415; 71045-TC-FY; 80053; 84484; 85025; 85610; 85730; 93005; 93010; 99285-25

== ENCOUNTER 2023-10-04 09:00 | Inpatient (IN) | payer BC ==
[2023-10-04 09:13] VITALS: BMI 34.9
[2023-10-04] MEDS: PIPERACILLIN/TAZOB 2.25 GM 2.25 GM in DEXTROSE 5%-WATER - 50 ML IVPB ONE (10:10)
[2023-10-04] MEDS ORDERED: PIPERACILLIN/TAZOB 4.5 GM 4.5 GM/100 ML BAG IVPB ONE (10:11)
[2023-10-04 10:12] LABS: BASO % 0.9 % (0-2.0); EOS % 0.9 % (0-4.5); HEMATOCRIT 41.6 % (35.4-49); HEMOGLOBIN 14.3 GM/dL (11.7-16.9); LYMPH % 21.4 % (8-40); MCH 29.7 pg (25.7-33.7); MCHC 34.5 g/dl (32.0-35.9); MEAN CELL VOLUME 86.3 fl (80-96); MEAN PLT VOLUME 8.1 fl (7.5-11.1); NEUT % 68.8 % (42.8-82.8); PLATELET COUNT 230 10^3/uL (134-434); RBC 4.82 M/mm3 (4.00-5.60); RDW 14.4 % (11.9-15.9); WHITE BLOOD COUNT 10.3 K/mm3 (4.0-10.0)
[2023-10-04] MEDS ORDERED: VANCOMYCIN 1 GRAM (PRE-DOCKED) 1,000 MG/250 ML BAG IVPB ONE (10:12)
[2023-10-04] MEDS: PIPERACILLIN/TAZOB 4.5 GM 4.5 GM in DEXTROSE 5%-WATER 100 ML IVPB ONE (10:22)
[2023-10-04 10:24] LABS: INR 1.34 (0.83-1.09)
[2023-10-04] MEDS: VANCOMYCIN 1,000 MG in DEXTROSE 5%-WATER - 250 ML IVPB ONE (10:24)
[2023-10-04 10:29] LABS: POTASSIUM 4.6 mmol/L (3.5-5.1)
[2023-10-04 10:31] LABS: ALBUMIN 3.3 g/dl (3.4-5.0); BLOOD UREA NITROGEN 19.7 mg/dL (7-18); CALCIUM 8.9 mg/dL (8.5-10.1)
[2023-10-04 10:35] LABS: CREATININE 1.1 mg/dL (0.55-1.3)
[2023-10-04 10:36] LABS: BILIRUBIN,TOTAL 0.8 mg/dL (0.2-1); TOT PROT 8.7 g/dl (6.4-8.2)
[2023-10-04] MEDS: LOSARTAN POTASSIUM 25 MG TABLET PO SCH (13:13)
[2023-10-04] MEDS: oxyCODONE HCL 5 MG TABLET PO PRN (13:19)
[2023-10-04] MEDS: GABAPENTIN 100 MG CAPSULE PO SCH (13:19)
[2023-10-04] MEDS: CYCLOBENZAPRINE HCL 5 MG TABLET PO SCH (15:31)
[2023-10-04] MEDS: CYCLOBENZAPRINE HCL 5 MG TABLET PO PRN (15:31)
[2023-10-04] MEDS: INSULIN ASPART SLIDING SCALE (NOVOLOG) 1 VIAL SQ SCH (16:31)
[2023-10-04] MEDS ORDERED: PIPERACILLIN/TAZOB 3.375 GM 3.375 GM in DEXTROSE 5%-WATER - 50 ML IVPB SCH (18:00)
[2023-10-04] MEDS ORDERED: DEXTROSE 50%-WATER - 25 GM/50 ML VIAL IVPUSH ONE (18:52)
[2023-10-04] MEDS: DEXTROSE 50%-WATER 25 GM/50 ML DISP.SYRIN IVPUSH ONE (19:00)
[2023-10-04] MEDS: ATORVASTATIN CA 10 MG TABLET (FP) PO SCH (21:26)
[2023-10-04] MEDS ORDERED: VANCOMYCIN PREMIX 1.5 GM 1,500 MG/300 ML BAG IVPB SCH ×2 (22:00)
[2023-10-05] MEDS ORDERED: ENOXAPARIN NA (PORCINE) 100 MG/1 ML DISP.SYRIN SQ SCH ×3 (01:20→10:00)
[2023-10-05] MEDS: hydrALAZINE HCL 20 MG/ML VIAL IVPUSH ONE (03:09)
[2023-10-05 08:23] LABS: BASO % 0.8 % (0-2.0); EOS % 0.5 % (0-4.5); HEMATOCRIT 42.2 % (35.4-49); LYMPH % 16.7 % (8-40); MCH 28.9 pg (25.7-33.7); MCHC 33.2 g/dl (32.0-35.9); MONO % 8.8 % (3.8-10.2); NEUT % 73.2 % (42.8-82.8); PLATELET COUNT 242 10^3/uL (134-434); RBC 4.85 M/mm3 (4.00-5.60); WHITE BLOOD COUNT 10.2 K/mm3 (4.0-10.0)
[2023-10-05 08:38] LABS: POTASSIUM 4.4 mmol/L (3.5-5.1)
[2023-10-05 08:48] LABS: ALBUMIN 3.1 g/dl (3.4-5.0); BLOOD UREA NITROGEN 16.1 mg/dL (7-18); CALCIUM 8.8 mg/dL (8.5-10.1)
[2023-10-05 08:50] LABS: MAGNESIUM 1.8 mg/dL (1.8-2.4)
[2023-10-05 08:52] LABS: CREATININE 0.9 mg/dL (0.55-1.3); PHOSPHOROUS 3.2 mg/dL (2.5-4.9)
[2023-10-05 08:54] LABS: BILIRUBIN,TOTAL 0.8 mg/dL (0.2-1); TOT PROT 8.5 g/dl (6.4-8.2)
[2023-10-05] MEDS: ENOXAPARIN NA (PORCINE) 100 MG/1 ML DISP.SYRIN SQ SCH (11:35)
[2023-10-05] MEDS: CYCLOBENZAPRINE HCL 5 MG TABLET PO ONE (11:36)
[2023-10-06] MEDS: ACETAMINOPHEN 325 MG TABLET (FP) PO PRN (02:37)
[2023-10-06 09:23] LABS: HEMATOCRIT 44.8 % (35.4-49); HEMOGLOBIN 14.6 GM/dL (11.7-16.9); MCHC 32.5 g/dl (32.0-35.9); MEAN CELL VOLUME 89.2 fl (80-96); MEAN PLT VOLUME 8.3 fl (7.5-11.1); PLATELET COUNT 198 10^3/uL (134-434); RBC 5.02 M/mm3 (4.00-5.60); RDW 14.4 % (11.9-15.9); WHITE BLOOD COUNT 9.8 K/mm3 (4.0-10.0)
[2023-10-06 09:52] LABS: POTASSIUM 4.9 mmol/L (3.5-5.1)
[2023-10-06 09:59] LABS: BLOOD UREA NITROGEN 20.3 mg/dL (7-18); CALCIUM 9.1 mg/dL (8.5-10.1)
[2023-10-06 10:02] LABS: CREATININE 1.1 mg/dL (0.55-1.3)
[2023-10-07 08:33] LABS: HEMATOCRIT 43.3 % (35.4-49); HEMOGLOBIN 14.2 GM/dL (11.7-16.9); MCH 28.7 pg (25.7-33.7); MCHC 32.8 g/dl (32.0-35.9); MEAN CELL VOLUME 87.7 fl (80-96); MEAN PLT VOLUME 8.2 fl (7.5-11.1); PLATELET COUNT 246 10^3/uL (134-434); RBC 4.93 M/mm3 (4.00-5.60); RDW 14.5 % (11.9-15.9); WHITE BLOOD COUNT 8.5 K/mm3 (4.0-10.0)
[2023-10-07 08:55] LABS: POTASSIUM 5.2 mmol/L (3.5-5.1)
[2023-10-07 08:56] LABS: CALCIUM 9.3 mg/dL (8.5-10.1)
[2023-10-07 08:57] LABS: BLOOD UREA NITROGEN 19.2 mg/dL (7-18)
[2023-10-07 09:00] LABS: CREATININE 1.2 mg/dL (0.55-1.3)
[2023-10-07] MEDS: SODIUM ZIRCONIUM CYCLOSILICATE (LOKELMA) 5 GM PACKET PO ONE (13:33)
[2023-10-07] MEDS ORDERED: ACETAMINOPHEN 1000 MG/100 ML BAG IVPB ONE (15:03)
[2023-10-07] MEDS ORDERED: ACETAMINOPHEN 1000 MG/100 ML BAG IVPB PRN (15:03)
[2023-10-07] MEDS: LIDOCAINE 5% TOPICAL PATCH TP SCH (15:19)
[2023-10-07] MEDS: LIDOCAINE PATCH REMOVAL MC SCH (21:20)
[2023-10-08 09:11] LABS: HEMATOCRIT 43.8 % (35.4-49); HEMOGLOBIN 14.7 GM/dL (11.7-16.9); MCH 29.3 pg (25.7-33.7); MCHC 33.5 g/dl (32.0-35.9); MEAN CELL VOLUME 87.3 fl (80-96); MEAN PLT VOLUME 8.4 fl (7.5-11.1); PLATELET COUNT 258 10^3/uL (134-434); RBC 5.02 M/mm3 (4.00-5.60); RDW 14.5 % (11.9-15.9)
[2023-10-08 09:13] LABS: INR 1.1 (0.83-1.09); PROTHROMBIN TIME (PATIENT) 12.4 SEC (9.7-13.0)
[2023-10-08 09:16] LABS: ACTIVATED PTT 35.4 SECONDS (25.2-36.5)
[2023-10-08 09:30] LABS: POTASSIUM 4.6 mmol/L (3.5-5.1)
[2023-10-08] MEDS ORDERED: ONDANSETRON 4 MG/2 ML VIAL IVPUSH PRN (09:36)
[2023-10-08 09:41] LABS: BLOOD UREA NITROGEN 18.4 mg/dL (7-18)
[2023-10-08 09:44] LABS: CALCIUM 9.5 mg/dL (8.5-10.1); CREATININE 1.1 mg/dL (0.55-1.3)
[2023-10-08] MEDS ORDERED: LIDOCAINE HCL/PF 2% SDV 5ML VIAL ONE (10:03)
[2023-10-08] MEDS ORDERED: PROPOFOL 20 ML ONE (10:04)
[2023-10-08] MEDS ORDERED: MIDAZOLAM HCL 2 MG/2 ML SINGLE DOSE VIAL ONE (10:04)
[2023-10-08] MEDS ORDERED: FENTANYL CITRATE/PF 50 MCG/ML VIAL ONE (10:04)
[2023-10-08] MEDS ORDERED: LIDOCAINE HCL 1%, 10 MG/ML (20ML VIAL) ONE (10:17)
[2023-10-08] MEDS ORDERED: DEXAMETHASONE SOD PHOSPHATE 4 MG/1 ML VIAL ONE (10:17)
[2023-10-08] MEDS ORDERED: BUPIVACAINE HCL/PF 0.5% (5MG/ML) 10 ML VIAL ONE (10:18)
[2023-10-08] MEDS ORDERED: ACETAMINOPHEN 1000 MG/100 ML BAG IVPB PRN (13:05)
[2023-10-09 08:16] LABS: INR 1.14 (0.83-1.09); PROTHROMBIN TIME (PATIENT) 12.8 SEC (9.7-13.0)
[2023-10-09] MEDS ORDERED: GENTAMICIN SO4 80 MG/2 ML VIAL ONE (11:25)
[2023-10-09] MEDS ORDERED: BUPIVACAINE HCL/PF 0.25% (2.5MG/ML) 10 ML VIAL ONE (11:25)
[2023-10-09] MEDS ORDERED: LIDOCAINE HCL 1%, 10 MG/ML (20ML VIAL) ONE (11:25)
[2023-10-09] MEDS ORDERED: FENTANYL CITRATE/PF 50 MCG/ML VIAL ONE (12:49)
[2023-10-09] MEDS ORDERED: MIDAZOLAM HCL 2 MG/2 ML SINGLE DOSE VIAL ONE (12:49)
[2023-10-09] MEDS ORDERED: ONDANSETRON 4 MG/2 ML VIAL ONE (12:49)
[2023-10-09] MEDS: cefOXitin SODIUM 1 GM VIAL (RESTRICTED TO ID) IVPB ONE (12:50)
[2023-10-09] MEDS ORDERED: ceFAZolin SODIUM 1 GM VIAL ONE (12:52)
[2023-10-09] MEDS ORDERED: PROPOFOL 20 ML ONE (12:52)
[2023-10-09] MEDS: LIDOCAINE HCL 1%, 10 MG/ML (20ML VIAL) INF ONE (13:01)
[2023-10-09] MEDS: BUPIVACAINE HCL/PF 0.25% (2.5MG/ML) 10 ML VIAL IJ ONE (13:01)
[2023-10-09] MEDS: GENTAMICIN SO4 80 MG/2 ML VIAL IVPB ONE (13:15)
[2023-10-09] MEDS ORDERED: ACETAMINOPHEN INJECTION 100 ML IVPB ONE (13:54)
[2023-10-09] MEDS: ACETAMINOPHEN 1000 MG/100 ML BAG IVPB ONE (14:00)
[2023-10-09] MEDS: GABAPENTIN 100 MG CAPSULE PO SCH ×2 (14:02→21:25)
[2023-10-09 15:14] LABS: BASO % 0.8 % (0-2.0); EOS % 0.9 % (0-4.5); HEMATOCRIT 44.3 % (35.4-49); HEMOGLOBIN 14.3 GM/dL (11.7-16.9); MCH 28.5 pg (25.7-33.7); MCHC 32.3 g/dl (32.0-35.9); MEAN CELL VOLUME 88.1 fl (80-96); MEAN PLT VOLUME 7.9 fl (7.5-11.1); MONO % 11.2 % (3.8-10.2); NEUT % 64.1 % (42.8-82.8); PLATELET COUNT 220 10^3/uL (134-434); RBC 5.03 M/mm3 (4.00-5.60); RDW 14.5 % (11.9-15.9); WHITE BLOOD COUNT 9.5 K/mm3 (4.0-10.0)
[2023-10-09] MEDS: INSULIN ASPART SLIDING SCALE (NOVOLOG) 1 VIAL SQ SCH (17:02)
[2023-10-09 17:22] VITALS: RESP 18
[2023-10-09] MEDS: ATORVASTATIN CA 10 MG TABLET (FP) PO SCH (21:26)
[2023-10-09] MEDS: LIDOCAINE PATCH REMOVAL MC SCH (21:38)
[2023-10-09] MEDS: MELATONIN 5 MG TABLETS PO PRN (21:55)
[2023-10-09] MEDS ORDERED: LIDOCAINE PATCH REMOVAL MC SCH (22:00)
[2023-10-09] MEDS: oxyCODONE HCL 5 MG TABLET PO PRN (22:35)
[2023-10-09] MEDS: ACETAMINOPHEN 325 MG TABLET (FP) PO ONE (23:24)
[2023-10-10] MEDS: ACETAMINOPHEN 325 MG TABLET (FP) PO PRN (01:54)
[2023-10-10] MEDS: CYCLOBENZAPRINE HCL 5 MG TABLET PO PRN (01:54)
[2023-10-10] MEDS ORDERED: morphine SULFATE IMMEDIATE RELEASE 30 MG TAB PO PRN (08:54)
[2023-10-10] MEDS: LIDOCAINE 5% TOPICAL PATCH TP SCH (09:16)
[2023-10-10] MEDS: LOSARTAN POTASSIUM 25 MG TABLET PO SCH (09:16)
[2023-10-10] MEDS: morphine SULFATE 10 MG/5 ML UNIT-DOSE CUP PO PRN (12:50)
[2023-10-10] MEDS ORDERED: ACETAMINOPHEN 500 MG TABLET (FP) PO PRN (13:50)
[2023-10-10] MEDS: MELATONIN 5 MG TABLETS PO ONE (14:25)
[2023-10-10] MEDS: ACETAMINOPHEN 500 MG TABLET (FP) PO ONE (14:25)
[2023-10-10] MEDS ORDERED: oxyCODONE HCL 5 MG TABLET PO PRN (16:03)
[2023-10-10] MEDS: oxyCODONE HCL 5 MG TABLET PO PRN ×2 (16:23→22:07)
[2023-10-10] MEDS: MELATONIN 5 MG TABLETS PO SCH (22:01)
[2023-10-11] MEDS: ACETAMINOPHEN 500 MG TABLET (FP) PO PRN (08:33)
[2023-10-11 09:49] LABS: HEMATOCRIT 40.8 % (35.4-49); HEMOGLOBIN 13.8 GM/dL (11.7-16.9); MCH 29.4 pg (25.7-33.7); MCHC 33.9 g/dl (32.0-35.9); MEAN CELL VOLUME 86.6 fl (80-96); MEAN PLT VOLUME 8.1 fl (7.5-11.1); PLATELET COUNT 226 10^3/uL (134-434); RBC 4.71 M/mm3 (4.00-5.60); RDW 14.3 % (11.9-15.9); WHITE BLOOD COUNT 9.6 K/mm3 (4.0-10.0)
[2023-10-11 09:50] LABS: BASO % 0.5 % (0-2.0); EOS % 0.5 % (0-4.5); LYMPH % 16.4 % (8-40); MONO % 9.6 % (3.8-10.2)
[2023-10-11] MEDS: RIVAROXABAN 20 MG TABLET PO SCH (10:06)
[2023-10-11 10:07] LABS: POTASSIUM 4.5 mmol/L (3.5-5.1)
[2023-10-11 10:14] LABS: ALBUMIN 3.1 g/dl (3.4-5.0); CALCIUM 9.1 mg/dL (8.5-10.1)
[2023-10-11 10:19] LABS: BILIRUBIN,TOTAL 0.7 mg/dL (0.2-1)
[2023-10-11] MEDS: IBUPROFEN 400 MG TABLET (FP) PO ONE (11:13)
[2023-10-11] MEDS: COLLAGENASE CLOSTRIDIUM HIST. 30 GRAMS TUBE TP SCH (12:12)
[2023-10-11] MEDS: LIDOCAINE 4% PATCH TP SCH (13:15)
[2023-10-11] MEDS: LIDOCAINE PATCH REMOVAL MC SCH (21:52)
[2023-10-12] MEDS: LIDOCAINE 5% TOPICAL PATCH TP SCH (10:07)
[2023-10-12 15:29] VITALS: BP 162/84; PULSE 67; TEMP 98.6
== END 2023-10-12 17:25 | disposition home or self-care (01) | DRG 617 ==
LOC: JER 09:00 → JERBED 10:29 → J6S 11:07
PROVIDERS: ADMIT Internal Medicine; ATTEND Internal Medicine
PROC: 0Y6P0Z1 Detachment at Right 1st Toe, High, Open Approach (ICD-10-PCS; principal; 2023-10-09 12:30)
DX: E10.69 Type 1 diabetes mellitus with other specified complication (principal); E10.52 Type 1 diabetes mellitus with diabetic peripheral angiopathy with gangrene; M86.171 Other acute osteomyelitis, right ankle and foot; E10.42 Type 1 diabetes mellitus with diabetic polyneuropathy; I48.91 Unspecified atrial fibrillation; I10 Essential (primary) hypertension; E78.5 Hyperlipidemia, unspecified; Z79.4 Long term (current) use of insulin; M54.50 Low back pain, unspecified; M25.511 Pain in right shoulder; E66.9 Obesity, unspecified; Z68.35 Body mass index [BMI] 35.0-35.9, adult
CPT/HCPCS: 36415; 71045-TC-FY; 73630-TC-RT-FY; 73718-TC-RT; 80048; 80053; 82962; 83036; 83735; 84100; 85025; 85027; 85610; 85651; 85730; 86140; 86850; 86900; 86901; 88305-TC; 88311-TC; 93005; 93010; 94760; 97116-GP; 97162-GP; 99285-25; J0131

== ENCOUNTER 2023-10-24 13:34 | Inpatient (IN) | payer BC ==
[2023-10-24 16:11] LABS: BASO % 0.6 % (0-2.0); EOS % 0.4 % (0-4.5); HEMATOCRIT 38.4 % (35.4-49); HEMOGLOBIN 12.7 GM/dL (11.7-16.9); LYMPH % 12.4 % (8-40); MCH 28.6 pg (25.7-33.7); MCHC 33.2 g/dl (32.0-35.9); MEAN CELL VOLUME 86.1 fl (80-96); MEAN PLT VOLUME 7.7 fl (7.5-11.1); MONO % 8.3 % (3.8-10.2); NEUT % 78.3 % (42.8-82.8); PLATELET COUNT 297 10^3/uL (134-434); RBC 4.46 M/mm3 (4.00-5.60); RDW 14.4 % (11.9-15.9)
[2023-10-24 16:21] LABS: PROTHROMBIN TIME (PATIENT) 22.1 SEC (9.7-13.0)
[2023-10-24 16:23] LABS: ACTIVATED PTT 43.2 SECONDS (25.2-36.5)
[2023-10-24 16:34] LABS: POTASSIUM 4.1 mmol/L (3.5-5.1)
[2023-10-24 16:35] LABS: CALCIUM 9.2 mg/dL (8.5-10.1)
[2023-10-24 16:37] LABS: ALBUMIN 3.3 g/dl (3.4-5.0); BLOOD UREA NITROGEN 19.3 mg/dL (7-18)
[2023-10-24 16:40] LABS: BILIRUBIN,TOTAL 0.8 mg/dL (0.2-1); CREATININE 1.3 mg/dL (0.55-1.3)
[2023-10-24 16:42] LABS: TOT PROT 8.8 g/dl (6.4-8.2)
[2023-10-24] MEDS ORDERED: PATIENT'S OWN MEDICATION (NON-FORMULARY) (Melatonin [Melatonin] 5 MG Tablet) PO PRN (17:42)
[2023-10-24] MEDS ORDERED: INSULIN (LEVEMIR) 100 UNITS/ML UNITS SQ ONE (20:54)
[2023-10-24] MEDS ORDERED: INSULIN ASPART SLIDING SCALE (NOVOLOG) 1 VIAL SQ ONE (20:55)
[2023-10-24] MEDS: MELATONIN 5 MG TABLETS PO PRN (21:04)
[2023-10-24] MEDS: ACETAMINOPHEN 500 MG TABLET (FP) PO ONE (21:04)
[2023-10-24] MEDS: ATORVASTATIN CA 10 MG TABLET (FP) PO SCH (21:06)
[2023-10-24] MEDS: GABAPENTIN 300 MG CAPSULE PO SCH (21:06)
[2023-10-24] MEDS: INSULIN (LEVEMIR) 100 UNITS/ML UNITS SQ SCH (21:07)
[2023-10-24] MEDS: INSULIN ASPART SLIDING SCALE (NOVOLOG) 1 VIAL SQ SCH (21:07)
[2023-10-24] MEDS: HEPARIN NA (PORCINE) 5,000 UNITS/ML 1ML VIAL SQ ONE (21:43)
[2023-10-24] MEDS ORDERED: GABAPENTIN 100 MG CAPSULE PO SCH (22:00)
[2023-10-24 22:37] VITALS: BMI 34.2
[2023-10-24] MEDS: LIDOCAINE PATCH REMOVAL MC SCH (22:45)
[2023-10-25] MEDS: LIDOCAINE 4% PATCH TP ONE (00:20)
[2023-10-25 07:53] LABS: HEMATOCRIT 40.6 % (35.4-49); HEMOGLOBIN 13.6 GM/dL (11.7-16.9); MCH 28.9 pg (25.7-33.7); MCHC 33.4 g/dl (32.0-35.9); MEAN CELL VOLUME 86.5 fl (80-96); MEAN PLT VOLUME 7.9 fl (7.5-11.1); PLATELET COUNT 280 10^3/uL (134-434); RDW 14.4 % (11.9-15.9); WHITE BLOOD COUNT 9.9 K/mm3 (4.0-10.0)
[2023-10-25 09:01] LABS: ALBUMIN 3.2 g/dl (3.4-5.0); BILIRUBIN,TOTAL 0.8 mg/dL (0.2-1); BLOOD UREA NITROGEN 17.8 mg/dL (7-18); CALCIUM 9.8 mg/dL (8.5-10.1); CREATININE 1.1 mg/dL (0.55-1.3); TOT PROT 8.8 g/dl (6.4-8.2)
[2023-10-25] MEDS: oxyCODONE HCL 5 MG TABLET PO PRN (09:24)
[2023-10-25] MEDS: FUROSEMIDE 20 MG TABLET (FP) PO SCH (09:25)
[2023-10-25] MEDS: LOSARTAN POTASSIUM 25 MG TABLET PO SCH (09:25)
[2023-10-25] MEDS: ENOXAPARIN NA (PORCINE) 100 MG/1 ML DISP.SYRIN SQ SCH (11:14)
[2023-10-25] MEDS ORDERED: HEPARIN NA (PORCINE) 5,000 UNITS/ML 1ML VIAL SQ SCH (14:00)
[2023-10-25] MEDS: VANCOMYCIN/WATER 1250 MG 1,250 MG/250 ML BAG IVPB SCH (18:32)
[2023-10-25] MEDS: CEFTRIAXONE 2 GM in DEXTROSE 5%-WATER 100 ML IVPB SCH (19:17)
[2023-10-25] MEDS: ACETAMINOPHEN 500 MG TABLET (FP) PO PRN (21:08)
[2023-10-26 09:03] LABS: HEMATOCRIT 32.1 % (35.4-49); HEMOGLOBIN 10.3 GM/dL (11.7-16.9); LYMPH % 13.6 % (8-40); MCH 28.5 pg (25.7-33.7); MCHC 32.2 g/dl (32.0-35.9); MEAN CELL VOLUME 88.6 fl (80-96); MEAN PLT VOLUME 8.1 fl (7.5-11.1); MONO % 7.5 % (3.8-10.2); NEUT % 77.9 % (42.8-82.8); PLATELET COUNT 183 10^3/uL (134-434); RBC 3.62 M/mm3 (4.00-5.60); RDW 14.6 % (11.9-15.9)
[2023-10-26 09:04] LABS: BASO % 0.5 % (0-2.0); EOS % 0.5 % (0-4.5)
[2023-10-26 09:20] LABS: POTASSIUM 4.7 mmol/L (3.5-5.1)
[2023-10-26 09:33] LABS: BLOOD UREA NITROGEN 18.6 mg/dL (7-18); CALCIUM 8.9 mg/dL (8.5-10.1)
[2023-10-26 09:36] LABS: CREATININE 0.9 mg/dL (0.55-1.3)
[2023-10-26] MEDS: LIDOCAINE PATCH REMOVAL MC SCH (23:06)
[2023-10-26] MEDS: LIDOCAINE 5% TOPICAL PATCH TP ONE (23:10)
[2023-10-27 09:25] LABS: POTASSIUM 4.5 mmol/L (3.5-5.1)
[2023-10-27 09:29] LABS: CALCIUM 8.9 mg/dL (8.5-10.1)
[2023-10-27 09:30] LABS: BLOOD UREA NITROGEN 20.9 mg/dL (7-18)
[2023-10-27 09:33] LABS: CREATININE 1.1 mg/dL (0.55-1.3)
[2023-10-27 09:34] LABS: BILIRUBIN,TOTAL 0.9 mg/dL (0.2-1); TOT PROT 8.4 g/dl (6.4-8.2)
[2023-10-27] MEDS: POLYETHYLENE GLYCOL (HEALTHYLAX) 3350 17 GM PACKET PO SCH (11:06)
[2023-10-27] MEDS: SENNOSIDES 8.6MG TABLET (FP) PO PRN (16:42)
[2023-10-27] MEDS: LIDOCAINE PATCH REMOVAL MC SCH (23:32)
[2023-10-28] MEDS ORDERED: LIDOCAINE 4% PATCH TP SCH ×3 (00:18→10:00)
[2023-10-28] MEDS: LIDOCAINE 4% PATCH TP SCH (00:42)
[2023-10-28] MEDS: LIDOCAINE PATCH REMOVAL MC SCH (09:11)
[2023-10-29] MEDS ORDERED: LIDOCAINE HCL 1%, 10 MG/ML (20ML VIAL) ONE (09:07)
[2023-10-29] MEDS ORDERED: GENTAMICIN SO4 80 MG/2 ML VIAL ONE (09:07)
[2023-10-29] MEDS ORDERED: BUPIVACAINE HCL/PF 0.5% (5MG/ML) 10 ML VIAL ONE (09:08)
[2023-10-29] MEDS ORDERED: DEXAMETHASONE SOD PHOSPHATE 10 MG/1 ML VIAL ONE (09:08)
[2023-10-29 10:39] LABS: INR 1.12 (0.83-1.09); PROTHROMBIN TIME (PATIENT) 12.8 SEC (9.7-13.0)
[2023-10-29 10:42] LABS: ACTIVATED PTT 40.6 SECONDS (25.2-36.5)
[2023-10-29] MEDS: BUPIVACAINE HCL/PF 0.5% (5 MG/ML) 30 ML VIAL IJ ONE (11:28)
[2023-10-29] MEDS: LIDOCAINE HCL 1%, 10 MG/ML (20ML VIAL) NR ONE (11:28)
[2023-10-29] MEDS ORDERED: SENNOSIDES 8.6MG TABLET (FP) PO PRN (12:59)
[2023-10-29 14:44] VITALS: RESP 18
[2023-10-29] MEDS: ENOXAPARIN NA (PORCINE) 100 MG/1 ML DISP.SYRIN SQ SCH (14:45)
[2023-10-29] MEDS: GABAPENTIN 300 MG CAPSULE PO SCH (14:45)
[2023-10-29] MEDS: ACETAMINOPHEN 500 MG TABLET (FP) PO PRN (15:36)
[2023-10-29] MEDS: oxyCODONE HCL 5 MG TABLET PO PRN ×2 (15:40→20:29)
[2023-10-29] MEDS ORDERED: oxyCODONE HCL 5 MG TABLET PO PRN (15:52)
[2023-10-29] MEDS: INSULIN ASPART SLIDING SCALE (NOVOLOG) 1 VIAL SQ SCH (16:03)
[2023-10-29] MEDS: CEFTRIAXONE 2 GM in DEXTROSE 5%-WATER 100 ML IVPB SCH (18:07)
[2023-10-29] MEDS: VANCOMYCIN/WATER 1250 MG 1,250 MG/250 ML BAG IVPB SCH (18:16)
[2023-10-29] MEDS: LACTATED RINGERS SOLUTION 1,000 ML IV SCH ×2 (18:20)
[2023-10-29] MEDS: LIDOCAINE 4% PATCH TP SCH (21:17)
[2023-10-29] MEDS: MELATONIN 5 MG TABLETS PO PRN (21:17)
[2023-10-29] MEDS: ATORVASTATIN CA 10 MG TABLET (FP) PO SCH (21:17)
[2023-10-29] MEDS: LIDOCAINE PATCH REMOVAL MC SCH (21:18)
[2023-10-30 08:59] LABS: BASO % 0.3 % (0-2.0); EOS % 0.1 % (0-4.5); HEMATOCRIT 41.4 % (35.4-49); HEMOGLOBIN 13.3 GM/dL (11.7-16.9); LYMPH % 9.1 % (8-40); MCH 28.2 pg (25.7-33.7); MCHC 32.2 g/dl (32.0-35.9); MEAN CELL VOLUME 87.5 fl (80-96); MEAN PLT VOLUME 8.3 fl (7.5-11.1); NEUT % 84.5 % (42.8-82.8); PLATELET COUNT 286 10^3/uL (134-434); RBC 4.73 M/mm3 (4.00-5.60); RDW 14.8 % (11.9-15.9); WHITE BLOOD COUNT 14.7 K/mm3 (4.0-10.0)
[2023-10-30] MEDS: POLYETHYLENE GLYCOL (HEALTHYLAX) 3350 17 GM PACKET PO SCH (09:08)
[2023-10-30] MEDS: LOSARTAN POTASSIUM 25 MG TABLET PO SCH (09:08)
[2023-10-30] MEDS: FUROSEMIDE 20 MG TABLET (FP) PO SCH (09:09)
[2023-10-30 09:24] LABS: BLOOD UREA NITROGEN 19.5 mg/dL (7-18); CALCIUM 9.2 mg/dL (8.5-10.1)
[2023-10-30 09:27] LABS: CREATININE 1.2 mg/dL (0.55-1.3)
[2023-10-30] MEDS: LIDOCAINE PATCH REMOVAL MC SCH (10:19)
[2023-10-30] MEDS: ONDANSETRON 4 MG/2 ML VIAL IVPUSH ONE ×2 (10:43→20:29)
[2023-10-31 08:37] LABS: BASO % 0.7 % (0-2.0); EOS % 0.5 % (0-4.5); HEMATOCRIT 35.3 % (35.4-49); HEMOGLOBIN 11.5 GM/dL (11.7-16.9); LYMPH % 20.3 % (8-40); MCH 28.2 pg (25.7-33.7); MCHC 32.5 g/dl (32.0-35.9); MEAN CELL VOLUME 86.9 fl (80-96); MEAN PLT VOLUME 8.2 fl (7.5-11.1); MONO % 9.7 % (3.8-10.2); NEUT % 68.8 % (42.8-82.8); PLATELET COUNT 266 10^3/uL (134-434); RBC 4.06 M/mm3 (4.00-5.60); RDW 14.6 % (11.9-15.9); WHITE BLOOD COUNT 10.8 K/mm3 (4.0-10.0)
[2023-10-31 08:53] LABS: ALBUMIN 2.8 g/dl (3.4-5.0)
[2023-10-31 08:55] LABS: POTASSIUM 4.3 mmol/L (3.5-5.1)
[2023-10-31 08:56] LABS: CREATININE 1.1 mg/dL (0.55-1.3)
[2023-10-31 08:57] LABS: BILIRUBIN,TOTAL 0.5 mg/dL (0.2-1)
[2023-10-31 08:58] LABS: TOT PROT 7.6 g/dl (6.4-8.2)
[2023-11-01] MEDS: ONDANSETRON 4 MG/2 ML VIAL IVPUSH ONE (02:24)
[2023-11-01] MEDS ORDERED: ONDANSETRON 4 MG/2 ML VIAL IVPUSH PRN (06:49)
[2023-11-01 12:37] LABS: HEMATOCRIT 36.6 % (35.4-49); HEMOGLOBIN 12.4 GM/dL (11.7-16.9); MCHC 33.7 g/dl (32.0-35.9); MEAN CELL VOLUME 86.1 fl (80-96); MEAN PLT VOLUME 7.8 fl (7.5-11.1); PLATELET COUNT 286 10^3/uL (134-434); RBC 4.26 M/mm3 (4.00-5.60); RDW 14.8 % (11.9-15.9); WHITE BLOOD COUNT 10.4 K/mm3 (4.0-10.0)
[2023-11-01 13:03] LABS: POTASSIUM 5.1 mmol/L (3.5-5.1)
[2023-11-01 13:06] LABS: CALCIUM 8.9 mg/dL (8.5-10.1)
[2023-11-01 13:07] LABS: BLOOD UREA NITROGEN 19.1 mg/dL (7-18)
[2023-11-01 13:11] LABS: CREATININE 0.9 mg/dL (0.55-1.3)
[2023-11-02] MEDS: RIVAROXABAN 20 MG TABLET PO SCH (17:21)
[2023-11-03 08:59] LABS: BASO % 0.5 % (0-2.0); EOS % 0.4 % (0-4.5); HEMATOCRIT 36.7 % (35.4-49); HEMOGLOBIN 12.2 GM/dL (11.7-16.9); LYMPH % 11.6 % (8-40); MCH 28.7 pg (25.7-33.7); MCHC 33.3 g/dl (32.0-35.9); MEAN CELL VOLUME 86.1 fl (80-96); MEAN PLT VOLUME 7.4 fl (7.5-11.1); NEUT % 80.5 % (42.8-82.8); PLATELET COUNT 308 10^3/uL (134-434); RBC 4.26 M/mm3 (4.00-5.60); RDW 14.5 % (11.9-15.9); WHITE BLOOD COUNT 10.8 K/mm3 (4.0-10.0)
[2023-11-03 09:20] LABS: POTASSIUM 4.5 mmol/L (3.5-5.1)
[2023-11-03 09:22] LABS: CALCIUM 8.6 mg/dL (8.5-10.1)
[2023-11-03 09:23] LABS: ALBUMIN 2.8 g/dl (3.4-5.0); BLOOD UREA NITROGEN 14.8 mg/dL (7-18)
[2023-11-03 09:26] LABS: CREATININE 0.9 mg/dL (0.55-1.3)
[2023-11-03 09:27] LABS: BILIRUBIN,TOTAL 0.7 mg/dL (0.2-1); TOT PROT 8.1 g/dl (6.4-8.2)
[2023-11-04 04:28] VITALS: PULSE 56
[2023-11-04 08:56] VITALS: BP 135/71; TEMP 98.4
[2023-11-04] MEDS: oxyCODONE HCL 5 MG TABLET PO ONE (15:32)
== END 2023-11-04 16:35 | disposition home or self-care (01) | DRG 617 ==
LOC: JER 13:34 → JERBED 17:45 → J6S 18:43
PROVIDERS: ATTEND Internal Medicine
PROC: 0Y6P0Z1 Detachment at Right 1st Toe, High, Open Approach (ICD-10-PCS; 2023-10-29)
PROC: 0Y6Q0Z0 Detachment at Left 1st Toe, Complete, Open Approach (ICD-10-PCS; principal; 2023-10-29 09:30)
PROC: 02HV33Z Insertion of Infusion Device into Superior Vena Cava, Percutaneous Approach (ICD-10-PCS; 2023-11-01)
PROC: B548ZZA Ultrasonography of Superior Vena Cava, Guidance (ICD-10-PCS; 2023-11-01)
DX: E11.69 Type 2 diabetes mellitus with other specified complication (principal); E11.52 Type 2 diabetes mellitus with diabetic peripheral angiopathy with gangrene; M86.8X7 Other osteomyelitis, ankle and foot; M86.172 Other acute osteomyelitis, left ankle and foot; E11.40 Type 2 diabetes mellitus with diabetic neuropathy, unspecified; I48.91 Unspecified atrial fibrillation; I10 Essential (primary) hypertension; E78.5 Hyperlipidemia, unspecified; K59.00 Constipation, unspecified; T87.81 Dehiscence of amputation stump; Y83.5 Amputation of limb(s) as the cause of abnormal reaction of the patient, or of later complication, without mention of misadventure at the time of the procedure; E11.621 Type 2 diabetes mellitus with foot ulcer; L97.529 Non-pressure chronic ulcer of other part of left foot with unspecified severity; L97.519 Non-pressure chronic ulcer of other part of right foot with unspecified severity; I44.0 Atrioventricular block, first degree; I45.10 Unspecified right bundle-branch block
CPT/HCPCS: 36415; 36569; 73630-TC-LT; 73630-TC-RT-FY; 73718-TC-LT; 73718-TC-RT; 75635-TC; 80048; 80053; 82550; 82553; 82962; 85025; 85027; 85610; 85730; 86140; 86850; 86900; 86901; 87070; 87075; 87186; 87205; 88304-TC; 88305-TC; 88311-TC; 93005; 93010; 94760; 99285-25; G0480; J0131; J1100; J1644; Q9967

== ENCOUNTER 2023-11-05 11:47 | Day surgery (SDC) | payer BC ==
[2023-11-05] MEDS: DAPTOMYCIN 650 MG in SODIUM CHLORIDE 50 ML IVPB ONE (12:06)
[2023-11-05 12:55] VITALS: BP 116/70; PULSE 65; RESP 16; TEMP 98.7
== END 2023-11-05 12:55 | disposition home or self-care (01) ==
LOC: FINFUSION 11:47 → FM/S 11:50 → FINFUSION 12:55
PROVIDERS: ATTEND Internal Medicine Infectious Disease
DX: M86.8X7 Other osteomyelitis, ankle and foot (principal); E11.40 Type 2 diabetes mellitus with diabetic neuropathy, unspecified; Z79.4 Long term (current) use of insulin; I10 Essential (primary) hypertension; I48.91 Unspecified atrial fibrillation; I73.9 Peripheral vascular disease, unspecified; S91.309A Unspecified open wound, unspecified foot, initial encounter; S91.109A Unspecified open wound of unspecified toe(s) without damage to nail, initial encounter; N28.0 Ischemia and infarction of kidney; D73.5 Infarction of spleen
CPT/HCPCS: 96365; J0878

== ENCOUNTER 2023-11-06 11:46 | Day surgery (SDC) | payer BC ==
[2023-11-06] MEDS: DAPTOMYCIN 650 MG in SODIUM CHLORIDE 50 ML IVPB ONE (12:11)
[2023-11-06 13:01] VITALS: BP 157/78; PULSE 56; RESP 16; TEMP 98.2
== END 2023-11-06 13:31 | disposition home or self-care (01) ==
LOC: FINFUSION 11:46 → FM/S 11:49 → FINFUSION 13:31
PROVIDERS: ATTEND Internal Medicine Infectious Disease
DX: M86.8X7 Other osteomyelitis, ankle and foot (principal); E11.40 Type 2 diabetes mellitus with diabetic neuropathy, unspecified; Z79.4 Long term (current) use of insulin; I10 Essential (primary) hypertension; I48.91 Unspecified atrial fibrillation; I73.9 Peripheral vascular disease, unspecified; S91.309A Unspecified open wound, unspecified foot, initial encounter; S91.109A Unspecified open wound of unspecified toe(s) without damage to nail, initial encounter; N28.0 Ischemia and infarction of kidney; D73.5 Infarction of spleen
CPT/HCPCS: 96365; J0878

== ENCOUNTER 2023-11-07 12:09 | Day surgery (SDC) | payer BC ==
[2023-11-07] MEDS: DAPTOMYCIN 650 MG in SODIUM CHLORIDE 50 ML IVPB ONE (12:26)
[2023-11-07 12:59] VITALS: BP 127/86; PULSE 85; RESP 18; TEMP 98.6
== END 2023-11-07 13:05 | disposition home or self-care (01) ==
LOC: FINFUSION 12:09 → FM/S 12:10 → FINFUSION 13:05
PROVIDERS: ATTEND Internal Medicine Infectious Disease
DX: M86.8X7 Other osteomyelitis, ankle and foot (principal); E11.40 Type 2 diabetes mellitus with diabetic neuropathy, unspecified; Z79.4 Long term (current) use of insulin; I10 Essential (primary) hypertension; I48.91 Unspecified atrial fibrillation; I73.9 Peripheral vascular disease, unspecified; S91.309A Unspecified open wound, unspecified foot, initial encounter; S91.109A Unspecified open wound of unspecified toe(s) without damage to nail, initial encounter; N25.0 Renal osteodystrophy; D73.5 Infarction of spleen
CPT/HCPCS: 96365; J0878

== ENCOUNTER 2023-11-08 11:25 | Day surgery (SDC) | payer BC ==
[2023-11-08 11:48] VITALS: BP 121/72; RESP 18; TEMP 97.7
[2023-11-08] MEDS: DAPTOMYCIN 650 MG in SODIUM CHLORIDE 50 ML IVPB ONE (11:50)
[2023-11-08 12:35] VITALS: PULSE 59
== END 2023-11-08 12:36 | disposition home or self-care (01) ==
LOC: FINFUSION 11:25 → FM/S 11:27 → FINFUSION 12:36
PROVIDERS: ATTEND Internal Medicine Infectious Disease
DX: M86.8X7 Other osteomyelitis, ankle and foot (principal)
CPT/HCPCS: 96365; J0878

== ENCOUNTER 2023-11-09 11:41 | Day surgery (SDC) | payer BC ==
[2023-11-09] MEDS ORDERED: REFRIGERATED ANITBIOTICS ONE (12:04)
[2023-11-09] MEDS: DAPTOMYCIN 650 MG in SODIUM CHLORIDE 50 ML IVPB SCH (12:07)
[2023-11-09 15:48] VITALS: BP 111/72; PULSE 60; RESP 18; TEMP 98.7
== END 2023-11-09 12:55 | disposition home or self-care (01) ==
LOC: FINFUSION 11:41 → FM/S 11:42 → FINFUSION 12:55
PROVIDERS: ATTEND Internal Medicine Infectious Disease
DX: M86.8X7 Other osteomyelitis, ankle and foot (principal)
CPT/HCPCS: 96365; J0878

== ENCOUNTER 2023-11-10 11:27 | Day surgery (SDC) | payer BC ==
[2023-11-10] MEDS: DAPTOMYCIN 650 MG in SODIUM CHLORIDE 50 ML IVPB ONE (12:46)
[2023-11-10 13:27] VITALS: BP 120/71; PULSE 58; RESP 18; TEMP 99
== END 2023-11-10 13:05 | disposition home or self-care (01) ==
LOC: FINFUSION 11:27 → FM/S 11:27 → FINFUSION 13:05
PROVIDERS: ATTEND Internal Medicine Infectious Disease
DX: M86.8X7 Other osteomyelitis, ankle and foot (principal)
CPT/HCPCS: 96365; J0878

== ENCOUNTER 2023-11-11 10:44 | Day surgery (SDC) | payer BC ==
[2023-11-11] MEDS: DAPTOMYCIN 650 MG in SODIUM CHLORIDE 50 ML IVPB ONE (11:28)
[2023-11-11 12:39] LABS: HEMATOCRIT 39.2 % (35.4-49); HEMOGLOBIN 12.4 G/dL (11.7-16.9); MCH 27.9 pg (25.7-33.7); MCHC 31.6 g/dl (32.0-35.9); MEAN CELL VOLUME 88.4 fl (80-96); MEAN PLT VOLUME 8.4 fl (7.5-11.1); PLATELET COUNT 251.4 10^3/uL (134-434); RBC 4.44 10^6/uL (4.00-5.60); RDW 14.9 % (11.9-15.9); WHITE BLOOD COUNT 8.9 10^3/uL (4.0-10.8)
[2023-11-11 12:58] LABS: CALCIUM 9.1 mg/dl (8.5-10.1); CREATININE 1.1 mg/dl (0.6-1.3)
[2023-11-11 13:12] VITALS: BP 134/68; PULSE 54; RESP 16; TEMP 98.9
== END 2023-11-11 13:20 | disposition home or self-care (01) ==
LOC: FINFUSION 10:44 → FM/S 10:45 → FINFUSION 13:20
PROVIDERS: ATTEND Internal Medicine Infectious Disease
DX: M86.8X7 Other osteomyelitis, ankle and foot (principal)
CPT/HCPCS: 36415; 80048; 82550; 82553; 85027; 96365; J0878

== ENCOUNTER 2024-01-02 09:54 | Inpatient (IN) | payer BC, OTHER ==
[2024-01-02] MEDS ORDERED: CEFTRIAXONE 2 GM/100 ML BAG IVPB ONE (11:50)
[2024-01-02 12:18] LABS: BASO % 0.7 % (0-2.0); EOS % 0.3 % (0-4.5); HEMATOCRIT 36.7 % (35.4-49); HEMOGLOBIN 12.3 GM/dL (11.7-16.9); LYMPH % 21.4 % (8-40); MCHC 33.6 g/dl (32.0-35.9); MEAN CELL VOLUME 86.3 fl (80-96); MEAN PLT VOLUME 7.5 fl (7.5-11.1); MONO % 7.9 % (3.8-10.2); NEUT % 69.7 % (42.8-82.8); PLATELET COUNT 306 10^3/uL (134-434); RBC 4.25 M/mm3 (4.00-5.60); RDW 14.8 % (11.9-15.9); WHITE BLOOD COUNT 11.5 K/mm3 (4.0-10.0)
[2024-01-02 12:39] LABS: BLOOD UREA NITROGEN 16.8 mg/dL (7-18); CALCIUM 8.9 mg/dL (8.5-10.1)
[2024-01-02 12:40] LABS: INR 2.61 (0.83-1.09); PROTHROMBIN TIME (PATIENT) 28.7 SEC (9.7-13.0)
[2024-01-02 12:42] LABS: ALBUMIN 3.3 g/dl (3.4-5.0)
[2024-01-02 12:43] LABS: ACTIVATED PTT 42.1 SECONDS (25.2-36.5)
[2024-01-02 12:43] LABS: CREATININE 1.2 mg/dL (0.55-1.3)
[2024-01-02 12:44] LABS: BILIRUBIN,TOTAL 0.7 mg/dL (0.2-1)
[2024-01-02 12:48] LABS: TOT PROT 8.3 g/dl (6.4-8.2)
[2024-01-02 13:13] LABS: ERYTHROCYTE SEDIMENTATION RATE 90 mm/hr (0-20)
[2024-01-02] MEDS ORDERED: ACETAMINOPHEN INJECTION 100 ML IVPB ONE (17:04)
[2024-01-02] MEDS: ACETAMINOPHEN 1000 MG/100 ML BAG IVPB ONE (17:15)
[2024-01-02] MEDS ORDERED: ACETAMINOPHEN 500 MG TABLET (FP) PO PRN (19:19)
[2024-01-02] MEDS: INSULIN ASPART SLIDING SCALE (NOVOLOG) 1 VIAL SQ SCH (20:21)
[2024-01-02 20:40] VITALS: BMI 32.3
[2024-01-02] MEDS: RIVAROXABAN 20 MG TABLET PO SCH (20:53)
[2024-01-02] MEDS: LOSARTAN POTASSIUM 25 MG TABLET PO SCH (20:55)
[2024-01-02] MEDS: ENOXAPARIN NA (PORCINE) 100 MG/1 ML DISP.SYRIN SQ SCH (22:28)
[2024-01-02] MEDS: ATORVASTATIN CA 10 MG TABLET (FP) PO SCH (22:28)
[2024-01-02] MEDS: GABAPENTIN 300 MG CAPSULE PO SCH (22:29)
[2024-01-03] MEDS ORDERED: CEFTRIAXONE 1 GM in DEXTROSE 5%-WATER - 50 ML IVPB SCH (10:00)
[2024-01-03] MEDS ORDERED: CEFTRIAXONE 2 GM in DEXTROSE 5%-WATER - 50 ML IVPB SCH (10:00)
[2024-01-03] MEDS: CEFTRIAXONE 2 GM in DEXTROSE 5%-WATER 100 ML IVPB SCH (10:25)
[2024-01-03 11:37] LABS: BASO % 0.8 % (0-2.0); EOS % 0.7 % (0-4.5); HEMATOCRIT 36.7 % (35.4-49); HEMOGLOBIN 12.2 GM/dL (11.7-16.9); LYMPH % 23.5 % (8-40); MCHC 33.2 g/dl (32.0-35.9); MEAN CELL VOLUME 87.2 fl (80-96); MEAN PLT VOLUME 7.9 fl (7.5-11.1); MONO % 7.3 % (3.8-10.2); NEUT % 67.7 % (42.8-82.8); PLATELET COUNT 257 10^3/uL (134-434); RBC 4.21 M/mm3 (4.00-5.60); RDW 14.8 % (11.9-15.9); WHITE BLOOD COUNT 8.8 K/mm3 (4.0-10.0)
[2024-01-03 11:54] LABS: POTASSIUM 4.4 mmol/L (3.5-5.1)
[2024-01-03 11:57] LABS: BLOOD UREA NITROGEN 15.8 mg/dL (7-18)
[2024-01-03 12:01] LABS: BILIRUBIN,TOTAL 0.7 mg/dL (0.2-1); CREATININE 1.1 mg/dL (0.55-1.3); PHOSPHOROUS 3.3 mg/dL (2.5-4.9)
[2024-01-03] MEDS: morphine SULFATE 4 MG/ML VIAL IM PRN (16:04)
[2024-01-03] MEDS: oxyCODONE HCL 5 MG TABLET PO PRN (19:27)
[2024-01-04 08:50] LABS: EOS % 0.8 % (0-4.5); HEMATOCRIT 37.3 % (35.4-49); HEMOGLOBIN 12.3 GM/dL (11.7-16.9); LYMPH % 20.9 % (8-40); MEAN CELL VOLUME 87.7 fl (80-96); MEAN PLT VOLUME 8.9 fl (7.5-11.1); MONO % 7.1 % (3.8-10.2); NEUT % 70.2 % (42.8-82.8); PLATELET COUNT 229 10^3/uL (134-434); RBC 4.25 M/mm3 (4.00-5.60); RDW 14.8 % (11.9-15.9); WHITE BLOOD COUNT 9.9 K/mm3 (4.0-10.0)
[2024-01-04 09:19] LABS: POTASSIUM 4.7 mmol/L (3.5-5.1)
[2024-01-04 09:24] LABS: CREATININE 1.1 mg/dL (0.55-1.3)
[2024-01-04] MEDS: COLLAGENASE CLOSTRIDIUM HIST. 30 GRAMS TUBE TP SCH (13:21)
[2024-01-04] MEDS: VANCOMYCIN/WATER 1250 MG 1,250 MG/250 ML BAG IVPB SCH (17:19)
[2024-01-04] MEDS: ERTAPENEM SODIUM 1 GM in SODIUM CHLORIDE 50 ML IVPB SCH ×2 (20:08→21:45)
[2024-01-04] MEDS: GABAPENTIN 400 MG CAPSULE PO SCH (21:51)
[2024-01-05] MEDS: morphine SULFATE 4 MG/ML VIAL IVPUSH PRN (06:41)
[2024-01-05 10:02] LABS: BASO % 0.9 % (0-2.0); EOS % 0.9 % (0-4.5); HEMATOCRIT 36.2 % (35.4-49); HEMOGLOBIN 12.1 GM/dL (11.7-16.9); LYMPH % 17.7 % (8-40); MCH 29.4 pg (25.7-33.7); MCHC 33.5 g/dl (32.0-35.9); MEAN CELL VOLUME 87.6 fl (80-96); MEAN PLT VOLUME 8.2 fl (7.5-11.1); MONO % 7.3 % (3.8-10.2); NEUT % 73.2 % (42.8-82.8); PLATELET COUNT 226 10^3/uL (134-434); RBC 4.13 M/mm3 (4.00-5.60); RDW 14.4 % (11.9-15.9); WHITE BLOOD COUNT 9.5 K/mm3 (4.0-10.0)
[2024-01-05 10:10] LABS: INR 1.25 (0.83-1.09); PROTHROMBIN TIME (PATIENT) 14.3 SEC (9.7-13.0)
[2024-01-05 10:22] LABS: POTASSIUM 4.7 mmol/L (3.5-5.1)
[2024-01-05 10:28] LABS: CALCIUM 8.7 mg/dL (8.5-10.1)
[2024-01-05 10:29] LABS: BLOOD UREA NITROGEN 11.6 mg/dL (7-18)
[2024-01-05 10:32] LABS: BILIRUBIN,TOTAL 0.5 mg/dL (0.2-1); TOT PROT 7.9 g/dl (6.4-8.2)
[2024-01-06] MEDS ORDERED: LIDOCAINE HCL 1%, 10 MG/ML (20ML VIAL) ONE (15:18)
[2024-01-06] MEDS ORDERED: HEPARIN NA (PORCINE) 5,000 UNITS/ML 1ML VIAL ONE (15:19)
[2024-01-06] MEDS ORDERED: DEXMEDETOMIDINE HCL 200 MCG/2 ML IVPB ONE (17:02)
[2024-01-06] MEDS ORDERED: MIDAZOLAM HCL 2 MG/2 ML SINGLE DOSE VIAL ONE (17:12)
[2024-01-06] MEDS ORDERED: ONDANSETRON 4 MG/2 ML VIAL IVPUSH PRN ×2 (17:22→18:40)
[2024-01-06] MEDS ORDERED: LACTATED RINGERS SOLUTION 1,000 ML IV SCH ×2 (17:30→18:40)
[2024-01-06] MEDS ORDERED: PROPOFOL 20 ML ONE (17:38)
[2024-01-06] MEDS: ceFAZolin SODIUM 1 GM VIAL IVPB ONE (17:40)
[2024-01-06] MEDS ORDERED: morphine SULFATE 4 MG/ML VIAL IVPUSH PRN (18:40)
[2024-01-06] MEDS: ATORVASTATIN CA 10 MG TABLET (FP) PO SCH (21:33)
[2024-01-06] MEDS: oxyCODONE HCL 5 MG TABLET PO PRN (21:33)
[2024-01-06] MEDS: GABAPENTIN 400 MG CAPSULE PO SCH (21:33)
[2024-01-06] MEDS: ENOXAPARIN NA (PORCINE) 100 MG/1 ML DISP.SYRIN SQ SCH (21:34)
[2024-01-06] MEDS: INSULIN ASPART SLIDING SCALE (NOVOLOG) 1 VIAL SQ SCH (21:40)
[2024-01-07] MEDS: ACETAMINOPHEN 500 MG TABLET (FP) PO PRN (10:36)
[2024-01-07] MEDS: LOSARTAN POTASSIUM 25 MG TABLET PO SCH (10:38)
[2024-01-07] MEDS: ERTAPENEM SODIUM 1 GM in SODIUM CHLORIDE 50 ML IVPB SCH (11:29)
[2024-01-07] MEDS: COLLAGENASE CLOSTRIDIUM HIST. 30 GRAMS TUBE TP SCH (13:53)
[2024-01-08] MEDS: BUPIVACAINE HCL/PF 0.5% (5MG/ML) 10 ML VIAL IJ ONE
[2024-01-08] MEDS ORDERED: BUPIVACAINE HCL/PF 0.5% (5MG/ML) 10 ML VIAL ONE (11:20)
[2024-01-08] MEDS ORDERED: LIDOCAINE HCL 2% (20ML MULTI-DOSE VIAL) ONE (11:20)
[2024-01-08] MEDS ORDERED: MIDAZOLAM HCL 2 MG/2 ML SINGLE DOSE VIAL ONE (11:31)
[2024-01-08] MEDS: LIDOCAINE HCL 2% (50ML VIAL) INF ONE ×2 (11:40)
[2024-01-08] MEDS ORDERED: VANCOMYCIN 500 MG VIAL (RESTRICTED TO ID ONLY) ONE (11:41)
[2024-01-08] MEDS: VANCOMYCIN 500 MG VIAL (RESTRICTED TO ID ONLY) IVPB ONE ×2 (12:27)
[2024-01-08] MEDS: LACTATED RINGERS SOLUTION 1,000 ML IV SCH (13:00)
[2024-01-08] MEDS: morphine SULFATE 4 MG/ML VIAL IVPUSH PRN (13:55)
[2024-01-08] MEDS: GABAPENTIN 400 MG CAPSULE PO SCH (13:56)
[2024-01-08] MEDS: INSULIN ASPART SLIDING SCALE (NOVOLOG) 1 VIAL SQ SCH (16:29)
[2024-01-08] MEDS: oxyCODONE HCL 5 MG TABLET PO PRN (16:31)
[2024-01-08] MEDS: ENOXAPARIN NA (PORCINE) 100 MG/1 ML DISP.SYRIN SQ SCH (18:13)
[2024-01-08] MEDS: ATORVASTATIN CA 10 MG TABLET (FP) PO SCH (21:41)
[2024-01-09] MEDS: LOSARTAN POTASSIUM 25 MG TABLET PO SCH (09:39)
[2024-01-09] MEDS: ERTAPENEM SODIUM 1 GM in SODIUM CHLORIDE 50 ML IVPB SCH (09:40)
[2024-01-09] MEDS: AMINO ACIDS/PROTEIN HYDROLYS 30 ML LIQUID.PKT PO SCH (16:37)
[2024-01-09] MEDS: POLYETHYLENE GLYCOL (HEALTHYLAX) 3350 17 GM PACKET PO SCH (17:39)
[2024-01-10 12:16] LABS: HEMATOCRIT 34.6 % (35.4-49); HEMOGLOBIN 11.3 GM/dL (11.7-16.9); MCH 28.7 pg (25.7-33.7); MCHC 32.7 g/dl (32.0-35.9); MEAN CELL VOLUME 87.9 fl (80-96); MEAN PLT VOLUME 7.8 fl (7.5-11.1); PLATELET COUNT 231 10^3/uL (134-434); RBC 3.94 M/mm3 (4.00-5.60); RDW 14.1 % (11.9-15.9); WHITE BLOOD COUNT 8.5 K/mm3 (4.0-10.0)
[2024-01-10 12:35] LABS: POTASSIUM 4.4 mmol/L (3.5-5.1)
[2024-01-10 12:38] LABS: ALBUMIN 2.7 g/dl (3.4-5.0); CALCIUM 8.6 mg/dL (8.5-10.1)
[2024-01-10 12:39] LABS: BLOOD UREA NITROGEN 15.2 mg/dL (7-18)
[2024-01-10 12:42] LABS: CREATININE 0.9 mg/dL (0.55-1.3)
[2024-01-10 12:43] LABS: BILIRUBIN,TOTAL 0.9 mg/dL (0.2-1); TOT PROT 7.3 g/dl (6.4-8.2)
[2024-01-11] MEDS: ACETAMINOPHEN 500 MG TABLET (FP) PO PRN (20:41)
[2024-01-12] MEDS: oxyCODONE HCL 5 MG TABLET PO PRN (14:06)
[2024-01-12] MEDS: ACETAMINOPHEN 500 MG TABLET (FP) PO SCH (14:25)
[2024-01-13 13:49] LABS: EOS % 1.2 % (0-4.5); HEMATOCRIT 41.9 % (35.4-49); HEMOGLOBIN 13.6 GM/dL (11.7-16.9); LYMPH % 28.1 % (8-40); MCH 28.7 pg (25.7-33.7); MCHC 32.3 g/dl (32.0-35.9); MEAN CELL VOLUME 88.8 fl (80-96); MEAN PLT VOLUME 8.3 fl (7.5-11.1); MONO % 6.3 % (3.8-10.2); NEUT % 63.4 % (42.8-82.8); PLATELET COUNT 274 10^3/uL (134-434); RBC 4.72 M/mm3 (4.00-5.60); RDW 14.4 % (11.9-15.9); WHITE BLOOD COUNT 7.7 K/mm3 (4.0-10.0)
[2024-01-13 14:16] LABS: POTASSIUM 4.3 mmol/L (3.5-5.1)
[2024-01-13 14:18] LABS: BLOOD UREA NITROGEN 16.6 mg/dL (7-18); CALCIUM 9.4 mg/dL (8.5-10.1)
[2024-01-13 14:22] LABS: CREATININE 1.1 mg/dL (0.55-1.3)
[2024-01-14] MEDS: ENOXAPARIN NA (PORCINE) 100 MG/1 ML DISP.SYRIN SQ SCH (22:57)
[2024-01-16 13:14] LABS: HEMATOCRIT 37.1 % (35.4-49); HEMOGLOBIN 12.3 GM/dL (11.7-16.9); MCH 28.8 pg (25.7-33.7); MCHC 33.1 g/dl (32.0-35.9); PLATELET COUNT 260 10^3/uL (134-434); RBC 4.26 M/mm3 (4.00-5.60); RDW 14.1 % (11.9-15.9)
[2024-01-16 13:23] LABS: INR 1.14 (0.83-1.09); PROTHROMBIN TIME (PATIENT) 12.8 SEC (9.7-13.0)
[2024-01-16 13:34] LABS: POTASSIUM 4.8 mmol/L (3.5-5.1)
[2024-01-16] MEDS ORDERED: GENTAMICIN SO4 80 MG/2 ML VIAL ONE (13:37)
[2024-01-16] MEDS ORDERED: LIDOCAINE HCL 1%, 10 MG/ML (20ML VIAL) ONE (13:37)
[2024-01-16] MEDS ORDERED: BUPIVACAINE HCL/PF 0.5% (5MG/ML) 10 ML VIAL ONE (13:38)
[2024-01-16] MEDS ORDERED: DEXAMETHASONE SOD PHOSPHATE 10 MG/1 ML VIAL ONE (13:38)
[2024-01-16 13:39] LABS: BLOOD UREA NITROGEN 20.3 mg/dL (7-18); CALCIUM 8.8 mg/dL (8.5-10.1)
[2024-01-16 13:43] LABS: CREATININE 0.9 mg/dL (0.55-1.3); PHOSPHOROUS 3.3 mg/dL (2.5-4.9)
[2024-01-16 13:44] LABS: BILIRUBIN,TOTAL 0.7 mg/dL (0.2-1); TOT PROT 7.9 g/dl (6.4-8.2)
[2024-01-16] MEDS ORDERED: VANCOMYCIN 500 MG VIAL (RESTRICTED TO ID ONLY) ONE (14:24)
[2024-01-16] MEDS ORDERED: THROMBIN (BOVINE) 5,000 UNIT VIAL TP ONE (14:27)
[2024-01-16] MEDS ORDERED: SUCCINYLCHOLINE CHLORIDE 200 MG/10 ML SYRINGE ONE ×2 (14:33→14:35)
[2024-01-16] MEDS ORDERED: PROPOFOL 40 ML ONE (14:33)
[2024-01-16] MEDS ORDERED: MIDAZOLAM HCL 2 MG/2 ML SINGLE DOSE VIAL ONE (14:34)
[2024-01-16] MEDS: BUPIVACAINE HCL/PF 0.5% (5MG/ML) 10 ML VIAL IJ ONE (14:54)
[2024-01-16] MEDS: LIDOCAINE HCL 1% PRESERVATIVE FREE - 30ML VIAL INF ONE (14:54)
[2024-01-16] MEDS: GENTAMICIN SO4 80 MG/2 ML VIAL IVPB ONE (15:06)
[2024-01-16] MEDS ORDERED: SODIUM CHLORIDE 0.9% P/F 10 ML VIAL IJ ONE (15:31)
[2024-01-16] MEDS ORDERED: oxyCODONE HCL 5 MG TABLET PO PRN ×2 (16:04→19:30)
[2024-01-16] MEDS: INSULIN ASPART SLIDING SCALE (NOVOLOG) 1 VIAL SQ SCH (16:27)
[2024-01-16] MEDS: LACTATED RINGERS SOLUTION 1,000 ML IV SCH ×2 (17:05→17:43)
[2024-01-16] MEDS: AMINO ACIDS/PROTEIN HYDROLYS 30 ML LIQUID.PKT PO SCH (18:38)
[2024-01-16] MEDS: ATORVASTATIN CA 10 MG TABLET (FP) PO SCH (21:03)
[2024-01-16] MEDS: GABAPENTIN 400 MG CAPSULE PO SCH (21:03)
[2024-01-16] MEDS: ACETAMINOPHEN 500 MG TABLET (FP) PO SCH (22:21)
[2024-01-17] MEDS ORDERED: HYDROmorphone HCL CARPU-JECT 2 MG/1 ML DISP.SYRIN IVPUSH ONE (01:08)
[2024-01-17] MEDS: HYDROmorphone HCL CARPU-JECT 2 MG/1 ML DISP.SYRIN IVPB ONE ×3 (01:59→14:28)
[2024-01-17] MEDS: HYDROmorphone HCl 2 MG/ML VIAL IVPB ONE (02:11)
[2024-01-17] MEDS ORDERED: ENOXAPARIN NA (PORCINE) 100 MG/1 ML DISP.SYRIN SQ SCH (10:00)
[2024-01-17] MEDS ORDERED: ENOXAPARIN NA (PORCINE) 40 MG/0.4 ML DISP.SYRIN SQ SCH (10:00)
[2024-01-17] MEDS: LOSARTAN POTASSIUM 25 MG TABLET PO SCH (10:11)
[2024-01-17] MEDS: ENOXAPARIN NA (PORCINE) 100 MG/1 ML DISP.SYRIN SQ SCH (10:11)
[2024-01-17] MEDS: POLYETHYLENE GLYCOL (HEALTHYLAX) 3350 17 GM PACKET PO SCH (10:20)
[2024-01-17] MEDS: ERTAPENEM SODIUM 1 GM in SODIUM CHLORIDE 50 ML IVPB SCH (10:22)
[2024-01-17] MEDS: HYDROmorphone HCL CARPU-JECT 2 MG/1 ML DISP.SYRIN IVPB PRN ×2 (10:44→20:50)
[2024-01-17 11:21] LABS: BASO % 1.5 % (0-2.0); EOS % 1.1 % (0-4.5); HEMATOCRIT 35.7 % (35.4-49); HEMOGLOBIN 11.4 GM/dL (11.7-16.9); LYMPH % 21.9 % (8-40); MCH 28.1 pg (25.7-33.7); MCHC 32.1 g/dl (32.0-35.9); MEAN CELL VOLUME 87.8 fl (80-96); MEAN PLT VOLUME 7.3 fl (7.5-11.1); MONO % 9.7 % (3.8-10.2); NEUT % 65.8 % (42.8-82.8); PLATELET COUNT 266 10^3/uL (134-434); RBC 4.06 M/mm3 (4.00-5.60); RDW 14.1 % (11.9-15.9); WHITE BLOOD COUNT 9.1 K/mm3 (4.0-10.0)
[2024-01-17 11:45] LABS: POTASSIUM 4.2 mmol/L (3.5-5.1)
[2024-01-17 11:47] LABS: ALBUMIN 2.8 g/dl (3.4-5.0); BLOOD UREA NITROGEN 16.9 mg/dL (7-18); CALCIUM 8.6 mg/dL (8.5-10.1); MAGNESIUM 1.9 mg/dL (1.8-2.4)
[2024-01-17 11:50] LABS: PHOSPHOROUS 3.9 mg/dL (2.5-4.9)
[2024-01-17 11:52] LABS: BILIRUBIN,TOTAL 0.6 mg/dL (0.2-1); TOT PROT 7.6 g/dl (6.4-8.2)
[2024-01-18] MEDS: traMADol HCL 50 MG TABLET PO PRN (11:12)
[2024-01-19] MEDS: HYDROmorphone HCL CARPU-JECT 2 MG/1 ML DISP.SYRIN IVPB PRN (21:43)
[2024-01-20] MEDS: POLYETHYLENE GLYCOL (HEALTHYLAX) 3350 17 GM PACKET PO SCH (14:16)
[2024-01-20] MEDS: HYDROmorphone HCL CARPU-JECT 2 MG/1 ML DISP.SYRIN IVPB PRN (16:05)
[2024-01-21 09:58] LABS: HEMATOCRIT 32.9 % (35.4-49); HEMOGLOBIN 11.1 GM/dL (11.7-16.9); MCHC 33.7 g/dl (32.0-35.9); MEAN CELL VOLUME 86.1 fl (80-96); PLATELET COUNT 281 10^3/uL (134-434); RBC 3.82 M/mm3 (4.00-5.60); RDW 13.9 % (11.9-15.9); WHITE BLOOD COUNT 8.3 K/mm3 (4.0-10.0)
[2024-01-21 09:59] LABS: BASO % 0.9 % (0-2.0); EOS % 1.7 % (0-4.5); HEMATOCRIT 32.9 % (35.4-49); LYMPH % 24.3 % (8-40); MCH 28.9 pg (25.7-33.7); MCHC 33.5 g/dl (32.0-35.9); MEAN CELL VOLUME 86.4 fl (80-96); MEAN PLT VOLUME 7.6 fl (7.5-11.1); MONO % 8.1 % (3.8-10.2); PLATELET COUNT 284 10^3/uL (134-434); RBC 3.81 M/mm3 (4.00-5.60); RDW 13.6 % (11.9-15.9); WHITE BLOOD COUNT 8.6 K/mm3 (4.0-10.0)
[2024-01-21] MEDS: CEFTRIAXONE 2 GM in DEXTROSE 5%-WATER 100 ML IVPB SCH (10:14)
[2024-01-21 10:17] LABS: POTASSIUM 3.9 mmol/L (3.5-5.1)
[2024-01-21 10:27] LABS: ALBUMIN 2.6 g/dl (3.4-5.0)
[2024-01-21 10:28] LABS: BILIRUBIN,TOTAL 0.6 mg/dL (0.2-1); BLOOD UREA NITROGEN 15.4 mg/dL (7-18); TOT PROT 7.2 g/dl (6.4-8.2)
[2024-01-21 10:30] LABS: CALCIUM 8.5 mg/dL (8.5-10.1); CREATININE 0.9 mg/dL (0.55-1.3)
[2024-01-21] MEDS: oxyCODONE HCL 5 MG TABLET PO PRN (21:39)
[2024-01-22] MEDS: GABAPENTIN 400 MG CAPSULE PO ONE (09:05)
[2024-01-22 09:47] LABS: HEMOGLOBIN 11.2 GM/dL (11.7-16.9); MCHC 33.1 g/dl (32.0-35.9); MEAN CELL VOLUME 87.7 fl (80-96); MEAN PLT VOLUME 7.5 fl (7.5-11.1); PLATELET COUNT 293 10^3/uL (134-434); RBC 3.88 M/mm3 (4.00-5.60); RDW 13.7 % (11.9-15.9); WHITE BLOOD COUNT 7.6 K/mm3 (4.0-10.0)
[2024-01-22 10:05] LABS: POTASSIUM 3.8 mmol/L (3.5-5.1)
[2024-01-22 10:15] LABS: ALBUMIN 2.8 g/dl (3.4-5.0); BLOOD UREA NITROGEN 14.9 mg/dL (7-18)
[2024-01-22 10:16] LABS: CALCIUM 8.9 mg/dL (8.5-10.1); MAGNESIUM 2.1 mg/dL (1.8-2.4)
[2024-01-22 10:20] LABS: PHOSPHOROUS 2.5 mg/dL (2.5-4.9)
[2024-01-22 10:21] LABS: BILIRUBIN,TOTAL 0.4 mg/dL (0.2-1); TOT PROT 7.8 g/dl (6.4-8.2)
[2024-01-23] MEDS: CEFTRIAXONE 2 GM in DEXTROSE 5%-WATER 100 ML IVPB SCH (06:55)
[2024-01-23 09:12] VITALS: BP 121/82; PULSE 57; RESP 12; TEMP 99.3
== END 2024-01-23 16:25 | disposition home or self-care (01) | DRG 464 ==
LOC: JER 09:54 → JERBED 15:14 → J8W 17:29 → J6S 01-03 15:15
PROVIDERS: ADMIT Internal Medicine; ATTEND Internal Medicine
PROC: B40JYZZ Plain Radiography of Other Lower Arteries using Other Contrast (ICD-10-PCS; 2024-01-06)
PROC: 0JBQ0ZZ Excision of Right Foot Subcutaneous Tissue and Fascia, Open Approach (ICD-10-PCS; 2024-01-08 11:00)
PROC: 0Y6M0ZC Detachment at Right Foot, Partial 3rd Ray, Open Approach (ICD-10-PCS; 2024-01-16)
PROC: 0Y6M0ZD Detachment at Right Foot, Partial 4th Ray, Open Approach (ICD-10-PCS; 2024-01-16)
PROC: 0Y6M0ZF Detachment at Right Foot, Partial 5th Ray, Open Approach (ICD-10-PCS; 2024-01-16)
PROC: 0Y6M0Z9 Detachment at Right Foot, Partial 1st Ray, Open Approach (ICD-10-PCS; 2024-01-16)
PROC: 0Y6M0ZB Detachment at Right Foot, Partial 2nd Ray, Open Approach (ICD-10-PCS; principal; 2024-01-16 14:30)
PROC: 02HV33Z Insertion of Infusion Device into Superior Vena Cava, Percutaneous Approach (ICD-10-PCS; 2024-01-22)
PROC: B548ZZA Ultrasonography of Superior Vena Cava, Guidance (ICD-10-PCS; 2024-01-22)
DX: T87.43 Infection of amputation stump, right lower extremity (principal); L03.115 Cellulitis of right lower limb; M86.171 Other acute osteomyelitis, right ankle and foot; M86.671 Other chronic osteomyelitis, right ankle and foot; E10.69 Type 1 diabetes mellitus with other specified complication; E10.621 Type 1 diabetes mellitus with foot ulcer; E10.42 Type 1 diabetes mellitus with diabetic polyneuropathy; E10.51 Type 1 diabetes mellitus with diabetic peripheral angiopathy without gangrene; Z79.85 Long-term (current) use of injectable non-insulin antidiabetic drugs; L97.529 Non-pressure chronic ulcer of other part of left foot with unspecified severity; L97.519 Non-pressure chronic ulcer of other part of right foot with unspecified severity; I48.91 Unspecified atrial fibrillation; I10 Essential (primary) hypertension; E78.5 Hyperlipidemia, unspecified; E66.9 Obesity, unspecified; Z68.32 Body mass index [BMI] 32.0-32.9, adult; Y83.9 Surgical procedure, unspecified as the cause of abnormal reaction of the patient, or of later complication, without mention of misadventure at the time of the procedure
CPT/HCPCS: 36415; 36569; 73630-TC-LT; 73630-TC-RT-FY; 73718-TC-LT; 73718-TC-RT; 76000-TC-FY; 80048; 80053; 82962; 83735; 84100; 85025; 85027; 85610; 85651; 85730; 86140; 86850; 86900; 86901; 87040; 87070; 87075; 87186; 87205; 88304-TC; 88307-TC; 88311-TC; 93005; 93010; 94760; 97116-GP; 97162-GP; 99285-25; C1713; G0463-25; J0131; J1100; J1644

== ENCOUNTER 2024-03-23 08:21 | Inpatient (IN) | payer BC ==
[2024-03-23 10:59] LABS: BASO % 0.6 % (0-2.0); EOS % 0.7 % (0-4.5); HEMATOCRIT 40.2 % (35.4-49); HEMOGLOBIN 13.2 GM/dL (11.7-16.9); LYMPH % 28.1 % (8-40); MCH 28.9 pg (25.7-33.7); MEAN CELL VOLUME 87.8 fl (80-96); MEAN PLT VOLUME 8.2 fl (7.5-11.1); NEUT % 62.6 % (42.8-82.8); PLATELET COUNT 226 10^3/uL (134-434); RBC 4.58 M/mm3 (4.00-5.60); RDW 14.3 % (11.9-15.9); WHITE BLOOD COUNT 9.6 K/mm3 (4.0-10.0)
[2024-03-23 11:01] LABS: INR 1.35 (0.83-1.09); PROTHROMBIN TIME (PATIENT) 15.1 SEC (9.7-13.0)
[2024-03-23 11:04] LABS: ACTIVATED PTT 38.2 SECONDS (25.2-36.5)
[2024-03-23 11:18] LABS: ALBUMIN 3.6 g/dl (3.4-5.0); POTASSIUM 4.7 mmol/L (3.5-5.1)
[2024-03-23 11:20] LABS: BLOOD UREA NITROGEN 22.6 mg/dL (7-18); CALCIUM 9.4 mg/dL (8.5-10.1)
[2024-03-23 11:21] LABS: MAGNESIUM 1.9 mg/dL (1.8-2.4)
[2024-03-23 11:24] LABS: CREATININE 1.2 mg/dL (0.55-1.3); PHOSPHOROUS 2.3 mg/dL (2.5-4.9)
[2024-03-23 11:26] LABS: BILIRUBIN,TOTAL 0.6 mg/dL (0.2-1); TOT PROT 8.4 g/dl (6.4-8.2)
[2024-03-23 11:36] LABS: ERYTHROCYTE SEDIMENTATION RATE 45 mm/hr (0-20)
[2024-03-23] MEDS ORDERED: DEXTROSE 50%-WATER 25 GM/50 ML DISP.SYRIN ONE (11:59)
[2024-03-23] MEDS ORDERED: PIPERACILLIN/TAZOB 3.375 GM 3.375 GM/50 ML BAG IVPB ONE (11:59)
[2024-03-23] MEDS ORDERED: oxyCODONE HCL 5 MG TABLET PO PRN (12:00)
[2024-03-23] MEDS: PIPERACILLIN/TAZOB 3.375 GM 3.375 GM in DEXTROSE 5%-WATER - 50 ML IVPB ONE (12:45)
[2024-03-23] MEDS: DEXTROSE 50%-WATER - 25 GM/50 ML VIAL IVPUSH ONE (12:45)
[2024-03-23] MEDS ORDERED: NAPH,MB-DB/K PH,MBDB POWDER PACKET ONE (13:42)
[2024-03-23] MEDS ORDERED: GABAPENTIN 400 MG CAPSULE ONE (13:43)
[2024-03-23] MEDS: INSULIN ASPART SLIDING SCALE (NOVOLOG) 1 VIAL SQ SCH (13:45)
[2024-03-23] MEDS: GABAPENTIN 400 MG CAPSULE PO SCH (13:59)
[2024-03-23] MEDS: VANCOMYCIN PREMIX 1.75 GM 1,750 MG/350 ML PIGGYBACK IVPB ONE (13:59)
[2024-03-23] MEDS: NAPH,MB-DB/K PH,MBDB POWDER PACKET PO SCH (13:59)
[2024-03-23] MEDS: AMMONIUM LACTATE 12% LOTION 225 GM BOTTLE TP SCH (14:35)
[2024-03-23] MEDS: COLLAGENASE CLOSTRIDIUM HIST. 30 GRAMS TUBE TP SCH (15:16)
[2024-03-23 16:47] VITALS: BMI 34.3
[2024-03-23] MEDS ORDERED: PIPERACILLIN/TAZOB 3.375 GM 3.375 GM in DEXTROSE 5%-WATER - 50 ML IVPB SCH (18:00)
[2024-03-23] MEDS: PIPERACILLIN/TAZOB 3.375 GM 3.375 GM in DEXTROSE 5%-WATER - 50 ML IVPB SCH (18:21)
[2024-03-23] MEDS ORDERED: VANCOMYCIN HCL 1,500 MG in DEXTROSE 5%-WATER - 250 ML IVPB SCH (20:00)
[2024-03-23] MEDS: VANCOMYCIN PREMIX 1.5 GM 1,500 MG/300 ML BAG IVPB SCH (21:43)
[2024-03-23] MEDS: ATORVASTATIN CA 10 MG TABLET (FP) PO SCH (21:43)
[2024-03-24] MEDS: LOSARTAN POTASSIUM 25 MG TABLET PO SCH (10:16)
[2024-03-24 13:11] LABS: HEMATOCRIT 42.9 % (35.4-49); MCH 28.9 pg (25.7-33.7); MCHC 32.7 g/dl (32.0-35.9); MEAN CELL VOLUME 88.2 fl (80-96); MEAN PLT VOLUME 8.4 fl (7.5-11.1); NEUT % 69.7 % (42.8-82.8); PLATELET COUNT 215 10^3/uL (134-434); RBC 4.86 M/mm3 (4.00-5.60); RDW 14.2 % (11.9-15.9); WHITE BLOOD COUNT 8.6 K/mm3 (4.0-10.0)
[2024-03-24 13:12] LABS: BASO % 0.9 % (0-2.0); EOS % 0.9 % (0-4.5); LYMPH % 22.6 % (8-40); MONO % 5.9 % (3.8-10.2)
[2024-03-24 13:20] LABS: INR 1.24 (0.83-1.09); PROTHROMBIN TIME (PATIENT) 14.2 SEC (9.7-13.0)
[2024-03-24 13:23] LABS: ACTIVATED PTT 35.1 SECONDS (25.2-36.5)
[2024-03-24 13:40] LABS: CALCIUM 9.8 mg/dL (8.5-10.1)
[2024-03-24 13:41] LABS: ALBUMIN 3.9 g/dl (3.4-5.0); BLOOD UREA NITROGEN 14.1 mg/dL (7-18); MAGNESIUM 1.9 mg/dL (1.8-2.4)
[2024-03-24 13:44] LABS: CREATININE 1.1 mg/dL (0.55-1.3)
[2024-03-24 13:45] LABS: BILIRUBIN,TOTAL 1.2 mg/dL (0.2-1)
[2024-03-24] MEDS: ERTAPENEM SODIUM 1 GM in SODIUM CHLORIDE 50 ML IVPB SCH (15:57)
[2024-03-24] MEDS: ENOXAPARIN NA (PORCINE) 100 MG/1 ML DISP.SYRIN SQ ONE (16:20)
[2024-03-25] MEDS: HEPARIN NA (PORCINE) 5,000 UNITS/ML 1ML VIAL SQ ONE
[2024-03-25] MEDS ORDERED: HEPARIN NA (PORCINE) 5,000 UNITS/ML 1ML VIAL ONE ×2 (10:57→16:27)
[2024-03-25] MEDS ORDERED: LIDOCAINE HCL 1%, 10 MG/ML (20ML VIAL) ONE (10:57)
[2024-03-25] MEDS ORDERED: MIDAZOLAM HCL 2 MG/2 ML SINGLE DOSE VIAL ONE (11:06)
[2024-03-25] MEDS: ceFAZolin SODIUM 1 GM VIAL IVPB ONE (11:53)
[2024-03-25] MEDS: LIDOCAINE HCL 1%, 10 MG/ML (20ML VIAL) NR ONE ×4 (12:01)
[2024-03-25] MEDS ORDERED: PROPOFOL 40 ML ONE (12:28)
[2024-03-25] MEDS ORDERED: oxyCODONE HCL 5 MG TABLET PO PRN (12:51)
[2024-03-25] MEDS: GABAPENTIN 400 MG CAPSULE PO SCH (13:56)
[2024-03-25] MEDS: INSULIN ASPART SLIDING SCALE (NOVOLOG) 1 VIAL SQ SCH (16:26)
[2024-03-25] MEDS ORDERED: ONDANSETRON 4 MG/2 ML VIAL ONE (18:16)
[2024-03-25] MEDS ORDERED: SUGAMMADEX SODIUM 200 MG/2 ML VIAL ONE (18:16)
[2024-03-25] MEDS: ATORVASTATIN CA 10 MG TABLET (FP) PO SCH (21:33)
[2024-03-25] MEDS: AMMONIUM LACTATE 12% LOTION 225 GM BOTTLE TP SCH (21:34)
[2024-03-26] MEDS: CEFTRIAXONE 2,000 MG in DEXTROSE 5%-WATER - 50 ML IVPB ONE (08:17)
[2024-03-26 08:18] VITALS: RESP 18
[2024-03-26] MEDS ORDERED: ENOXAPARIN 120 MG, ENOXAPARIN 30 MG SQ ONE (10:00)
[2024-03-26] MEDS ORDERED: ENOXAPARIN NA (PORCINE) 100 MG/1 ML DISP.SYRIN SQ ONE (10:00)
[2024-03-26] MEDS ORDERED: ERTAPENEM SODIUM 1 GM in SODIUM CHLORIDE 50 ML IVPB SCH (10:00)
[2024-03-26 10:23] LABS: HEMATOCRIT 42.2 % (35.4-49); HEMOGLOBIN 13.7 GM/dL (11.7-16.9); MCH 28.5 pg (25.7-33.7); MCHC 32.5 g/dl (32.0-35.9); MEAN CELL VOLUME 87.6 fl (80-96); MEAN PLT VOLUME 8.4 fl (7.5-11.1); PLATELET COUNT 232 10^3/uL (134-434); RBC 4.82 M/mm3 (4.00-5.60); RDW 14.4 % (11.9-15.9); WHITE BLOOD COUNT 8.2 K/mm3 (4.0-10.0)
[2024-03-26 10:31] LABS: POTASSIUM 4.2 mmol/L (3.5-5.1)
[2024-03-26] MEDS: ERTAPENEM SODIUM 1 GM in SODIUM CHLORIDE 50 ML IVPB SCH (10:35)
[2024-03-26] MEDS: LOSARTAN POTASSIUM 25 MG TABLET PO SCH (10:38)
[2024-03-26 10:40] LABS: CALCIUM 9.5 mg/dL (8.5-10.1)
[2024-03-26 10:41] LABS: ALBUMIN 3.6 g/dl (3.4-5.0); BLOOD UREA NITROGEN 23.1 mg/dL (7-18)
[2024-03-26 10:44] LABS: CREATININE 1.2 mg/dL (0.55-1.3)
[2024-03-26 10:45] LABS: BILIRUBIN,TOTAL 0.7 mg/dL (0.2-1); TOT PROT 8.5 g/dl (6.4-8.2)
[2024-03-26] MEDS: COLLAGENASE CLOSTRIDIUM HIST. 30 GRAMS TUBE TP SCH (11:18)
[2024-03-26] MEDS: ENOXAPARIN NA (PORCINE) 100 MG/1 ML DISP.SYRIN SQ SCH (18:21)
[2024-03-27 10:11] VITALS: TEMP 97.9
[2024-03-27 10:57] LABS: HEMATOCRIT 41.4 % (35.4-49); HEMOGLOBIN 13.4 GM/dL (11.7-16.9); MCH 28.6 pg (25.7-33.7); MCHC 32.5 g/dl (32.0-35.9); MEAN PLT VOLUME 8.4 fl (7.5-11.1); PLATELET COUNT 200 10^3/uL (134-434); RBC 4.71 M/mm3 (4.00-5.60); RDW 14.4 % (11.9-15.9); WHITE BLOOD COUNT 7.7 K/mm3 (4.0-10.0)
[2024-03-27 11:12] LABS: POTASSIUM 4.2 mmol/L (3.5-5.1)
[2024-03-27 11:14] LABS: ALBUMIN 3.5 g/dl (3.4-5.0); BLOOD UREA NITROGEN 16.6 mg/dL (7-18); CALCIUM 9.3 mg/dL (8.5-10.1)
[2024-03-27 11:18] LABS: CREATININE 1.1 mg/dL (0.55-1.3)
[2024-03-27 11:19] LABS: BILIRUBIN,TOTAL 0.6 mg/dL (0.2-1)
[2024-03-27 14:34] VITALS: BP 154/80; PULSE 58
== END 2024-03-27 16:38 | disposition home or self-care (01) | DRG 300 ==
LOC: JER 08:21 → JERBED 11:56 → J6S 16:03
PROVIDERS: ADMIT Internal Medicine; ATTEND Internal Medicine
PROC: B41GZZZ Fluoroscopy of Left Lower Extremity Arteries (ICD-10-PCS; principal; 2024-03-25 10:30)
DX: E10.52 Type 1 diabetes mellitus with diabetic peripheral angiopathy with gangrene (principal); I48.19 Other persistent atrial fibrillation; L03.116 Cellulitis of left lower limb; I96 Gangrene, not elsewhere classified; M86.8X7 Other osteomyelitis, ankle and foot; E10.69 Type 1 diabetes mellitus with other specified complication; T87.89 Other complications of amputation stump; Y83.9 Surgical procedure, unspecified as the cause of abnormal reaction of the patient, or of later complication, without mention of misadventure at the time of the procedure; I10 Essential (primary) hypertension; E78.5 Hyperlipidemia, unspecified; E10.42 Type 1 diabetes mellitus with diabetic polyneuropathy
CPT/HCPCS: 36415; 73630-TC-LT; 73630-TC-RT-FY; 73718-TC-LT; 76000-TC-FY; 80053; 82962; 83735; 84100; 85025; 85027; 85610; 85651; 85730; 86140; 86850; 86900; 86901; 87040; 87070; 87205; 93005; 93010; 94760; 99285-25; C1769; J1644; J3370

== ENCOUNTER 2024-05-29 08:12 | Inpatient (IN) | payer BC ==
[2024-05-29 08:41] VITALS: BMI 34.9
[2024-05-29 09:58] LABS: BASO % 0.7 % (0-2.0); EOS % 0.9 % (0-4.5); HEMATOCRIT 39.8 % (35.4-49); HEMOGLOBIN 13.2 GM/dL (11.7-16.9); LYMPH % 23.3 % (8-40); MCH 28.7 pg (25.7-33.7); MCHC 33.2 g/dl (32.0-35.9); MEAN CELL VOLUME 86.3 fl (80-96); MEAN PLT VOLUME 7.7 fl (7.5-11.1); MONO % 9.1 % (3.8-10.2); PLATELET COUNT 219 10^3/uL (134-434); RBC 4.61 M/mm3 (4.00-5.60); RDW 14.6 % (11.9-15.9); WHITE BLOOD COUNT 8.8 K/mm3 (4.0-10.0)
[2024-05-29] MEDS: PIPERACILLIN/TAZOB 3.375 GM 3.375 GM in DEXTROSE 5%-WATER - 50 ML IVPB ONE (10:00)
[2024-05-29] MEDS ORDERED: PIPERACILLIN/TAZOB 3.375 GM 3.375 GM/50 ML BAG IVPB ONE (10:04)
[2024-05-29] MEDS ORDERED: VANCOMYCIN 1 GM PREMIX (F) 1 GM/200 ML BAG ONE (10:05)
[2024-05-29 10:06] LABS: INR 1.31 (0.83-1.09)
[2024-05-29 10:09] LABS: ACTIVATED PTT 38.4 SECONDS (25.2-36.5)
[2024-05-29] MEDS: VANCOMYCIN 1,000 MG in DEXTROSE 5%-WATER - 250 ML IVPB ONE (10:24)
[2024-05-29 10:34] LABS: POTASSIUM 4.5 mmol/L (3.5-5.1)
[2024-05-29 10:36] LABS: CALCIUM 9.4 mg/dL (8.5-10.1)
[2024-05-29 10:37] LABS: ALBUMIN 3.8 g/dl (3.4-5.0); BLOOD UREA NITROGEN 18.9 mg/dL (7-18)
[2024-05-29 11:54] LABS: CREATININE 1.4 mg/dL (0.55-1.3)
[2024-05-29 11:55] LABS: BILIRUBIN,TOTAL 0.6 mg/dL (0.2-1); TOT PROT 8.5 g/dl (6.4-8.2)
[2024-05-29] MEDS ORDERED: ENOXAPARIN NA (PORCINE) 100 MG/1 ML DISP.SYRIN SQ ONE ×2 (13:02→21:54)
[2024-05-29] MEDS ORDERED: oxyCODONE HCL 5 MG TABLET PO PRN (13:06)
[2024-05-29] MEDS: INSULIN PUMP - PATIENTS OWN MED NR SCH (13:12)
[2024-05-29] MEDS: LACTATED RINGERS SOLUTION 1,000 ML IV SCH (13:12)
[2024-05-29] MEDS: ENOXAPARIN NA (PORCINE) 100 MG/1 ML DISP.SYRIN SQ SCH (13:12)
[2024-05-29] MEDS ORDERED: GABAPENTIN 100 MG CAPSULE ONE (17:19)
[2024-05-29] MEDS: GABAPENTIN 100 MG CAPSULE PO SCH (17:21)
[2024-05-29] MEDS ORDERED: MEROPENEM 1 GM in DEXTROSE 5%-WATER 100 ML IVPB SCH (18:00)
[2024-05-29] MEDS ORDERED: MEROPENEM-0.9% SODIUM CHLORIDE 1 GM/50 ML BAG IVPB ONE (18:15)
[2024-05-29] MEDS: MEROPENEM-0.9% SODIUM CHLORIDE 1 GM/50 ML BAG IVPB SCH (18:22)
[2024-05-29] MEDS: AMMONIUM LACTATE 12% LOTION 225 GM BOTTLE TP SCH (21:52)
[2024-05-29] MEDS ORDERED: GABAPENTIN 400 MG CAPSULE ONE (21:54)
[2024-05-29] MEDS ORDERED: ATORVASTATIN CA 10 MG TABLET (FP) ONE (21:54)
[2024-05-29] MEDS: ATORVASTATIN CA 10 MG TABLET (FP) PO SCH (22:07)
[2024-05-30 09:30] LABS: BASO % 1.1 % (0-2.0); EOS % 2.1 % (0-4.5); HEMATOCRIT 42.7 % (35.4-49); HEMOGLOBIN 14.4 GM/dL (11.7-16.9); LYMPH % 31.7 % (8-40); MCHC 33.7 g/dl (32.0-35.9); MEAN CELL VOLUME 86.1 fl (80-96); MEAN PLT VOLUME 8.4 fl (7.5-11.1); MONO % 8.9 % (3.8-10.2); NEUT % 56.2 % (42.8-82.8); PLATELET COUNT 197 10^3/uL (134-434); RBC 4.96 M/mm3 (4.00-5.60); RDW 14.8 % (11.9-15.9); WHITE BLOOD COUNT 6.6 K/mm3 (4.0-10.0)
[2024-05-30 09:51] LABS: POTASSIUM 4.2 mmol/L (3.5-5.1)
[2024-05-30] MEDS: amLODIPine BESYLATE 5 MG TABLET (FP) PO SCH (10:20)
[2024-05-30] MEDS: LOSARTAN POTASSIUM 25 MG TABLET PO SCH (10:20)
[2024-05-30] MEDS: HYDROCHLOROTHIAZIDE 25 MG TABLET (FP) PO SCH (10:20)
[2024-05-30 10:32] LABS: ALBUMIN 3.6 g/dl (3.4-5.0); CALCIUM 9.1 mg/dL (8.5-10.1); MAGNESIUM 1.9 mg/dL (1.8-2.4)
[2024-05-30 10:33] LABS: BLOOD UREA NITROGEN 14.8 mg/dL (7-18)
[2024-05-30 10:36] LABS: CREATININE 1.3 mg/dL (0.55-1.3); PHOSPHOROUS 3.9 mg/dL (2.5-4.9)
[2024-05-30 10:37] LABS: BILIRUBIN,TOTAL 0.8 mg/dL (0.2-1); TOT PROT 8.1 g/dl (6.4-8.2)
[2024-05-30] MEDS ORDERED: MEROPENEM 1 GM in DEXTROSE 5%-WATER 100 ML IVPB SCH (20:45)
[2024-05-30] MEDS: MEROPENEM-0.9% SODIUM CHLORIDE 1 GM/50 ML BAG IVPB ONE (20:47)
[2024-05-30] MEDS: VANCOMYCIN/WATER FOR INJ (PEG) 1,000 MG/200 ML BAG IVPB SCH (21:54)
[2024-05-31 09:16] LABS: BASO % 0.9 % (0-2.0); EOS % 2.7 % (0-4.5); HEMATOCRIT 41.7 % (35.4-49); HEMOGLOBIN 13.7 GM/dL (11.7-16.9); LYMPH % 31.7 % (8-40); MCH 28.8 pg (25.7-33.7); MEAN CELL VOLUME 87.2 fl (80-96); MONO % 7.1 % (3.8-10.2); NEUT % 57.6 % (42.8-82.8); PLATELET COUNT 194 10^3/uL (134-434); RBC 4.78 M/mm3 (4.00-5.60); RDW 15.1 % (11.9-15.9); WHITE BLOOD COUNT 6.5 K/mm3 (4.0-10.0)
[2024-05-31 09:39] LABS: POTASSIUM 4.4 mmol/L (3.5-5.1)
[2024-05-31 09:42] LABS: BLOOD UREA NITROGEN 17.2 mg/dL (7-18)
[2024-05-31 09:46] LABS: CREATININE 1.3 mg/dL (0.55-1.3)
[2024-05-31] MEDS: DOCUSATE SODIUM 100 MG CAPSULE (FP) PO ONE (18:21)
[2024-06-01 09:48] LABS: BASO % 0.9 % (0-2.0); EOS % 2.5 % (0-4.5); HEMATOCRIT 40.1 % (35.4-49); HEMOGLOBIN 13.3 GM/dL (11.7-16.9); LYMPH % 25.7 % (8-40); MCH 28.7 pg (25.7-33.7); MCHC 33.1 g/dl (32.0-35.9); MEAN CELL VOLUME 86.7 fl (80-96); MEAN PLT VOLUME 8.2 fl (7.5-11.1); MONO % 8.2 % (3.8-10.2); NEUT % 62.7 % (42.8-82.8); PLATELET COUNT 202 10^3/uL (134-434); RBC 4.63 M/mm3 (4.00-5.60); RDW 14.9 % (11.9-15.9); WHITE BLOOD COUNT 6.5 K/mm3 (4.0-10.0)
[2024-06-01 10:04] LABS: POTASSIUM 4.6 mmol/L (3.5-5.1)
[2024-06-01 10:30] LABS: ALBUMIN 3.5 g/dl (3.4-5.0); BLOOD UREA NITROGEN 14.2 mg/dL (7-18); CALCIUM 9.4 mg/dL (8.5-10.1)
[2024-06-01 10:32] LABS: CREATININE 1.2 mg/dL (0.55-1.3)
[2024-06-01 10:34] LABS: BILIRUBIN,TOTAL 0.7 mg/dL (0.2-1)
[2024-06-01] MEDS: POLYETHYLENE GLYCOL (HEALTHYLAX) 3350 17 GM PACKET PO SCH (10:38)
[2024-06-01 12:47] LABS: INR 1.07 (0.83-1.09); PROTHROMBIN TIME (PATIENT) 12.1 SEC (9.7-13.0)
[2024-06-01] MEDS: DOCUSATE SODIUM 100 MG CAPSULE (FP) PO ONE ×2 (16:10→18:00)
[2024-06-02] MEDS: INSULIN PUMP - PATIENTS OWN MED NR SCH (07:40)
[2024-06-02] MEDS: LIDOCAINE HCL 1%, 10 MG/ML (20ML VIAL) NR ONE ×2 (15:41)
[2024-06-02] MEDS: BUPIVACAINE HCL/PF 0.5% (5MG/ML) 10 ML VIAL IJ ONE ×2 (15:41)
[2024-06-02] MEDS ORDERED: LIDOCAINE HCL 1%, 10 MG/ML (20ML VIAL) ONE (15:45)
[2024-06-02] MEDS ORDERED: VANCOMYCIN 1,000 MG VIAL (RESTRICTED TO ID ONLY) ONE (15:45)
[2024-06-02] MEDS ORDERED: BUPIVACAINE HCL/PF 0.5% (5MG/ML) 10 ML VIAL ONE (15:45)
[2024-06-02] MEDS ORDERED: GENTAMICIN SO4 80 MG/2 ML VIAL ONE (15:45)
[2024-06-02] MEDS ORDERED: ONDANSETRON 4 MG/2 ML VIAL IVPUSH PRN ×2 (16:51→17:13)
[2024-06-02] MEDS ORDERED: LACTATED RINGERS SOLUTION 1,000 ML IV SCH ×2 (17:00→17:13)
[2024-06-02] MEDS ORDERED: PROMETHAZINE HCL 25 MG/1 ML VIAL IVPB PRN (17:10)
[2024-06-02] MEDS: ACETAMINOPHEN 1000 MG/100 ML BAG IVPB ONE (17:10)
[2024-06-02] MEDS: LACTATED RINGERS SOLUTION 1,000 ML IV SCH (18:16)
[2024-06-02] MEDS: oxyCODONE HCL 5 MG TABLET PO PRN (19:14)
[2024-06-02] MEDS: GABAPENTIN 400 MG CAPSULE PO SCH (21:43)
[2024-06-02] MEDS: ATORVASTATIN CA 10 MG TABLET (FP) PO SCH (21:43)
[2024-06-02] MEDS: POLYETHYLENE GLYCOL (HEALTHYLAX) 3350 17 GM PACKET PO SCH (21:43)
[2024-06-02] MEDS: AMMONIUM LACTATE 12% LOTION 225 GM BOTTLE TP SCH (21:45)
[2024-06-03] MEDS: ACETAMINOPHEN 1000 MG/100 ML BAG IVPB ONE
[2024-06-03] MEDS: POLYETHYLENE GLYCOL (HEALTHYLAX) 3350 17 GM PACKET PO ONE (00:30)
[2024-06-03] MEDS: HYDROCHLOROTHIAZIDE 25 MG TABLET (FP) PO SCH (09:18)
[2024-06-03] MEDS: LOSARTAN POTASSIUM 25 MG TABLET PO SCH (09:18)
[2024-06-03] MEDS: amLODIPine BESYLATE 5 MG TABLET (FP) PO SCH (09:18)
[2024-06-03 10:11] LABS: BASO % 0.5 % (0-2.0); EOS % 0.6 % (0-4.5); HEMATOCRIT 40.6 % (35.4-49); HEMOGLOBIN 13.2 GM/dL (11.7-16.9); LYMPH % 17.2 % (8-40); MCH 28.7 pg (25.7-33.7); MCHC 32.4 g/dl (32.0-35.9); MEAN CELL VOLUME 88.5 fl (80-96); MEAN PLT VOLUME 8.2 fl (7.5-11.1); MONO % 8.1 % (3.8-10.2); NEUT % 73.6 % (42.8-82.8); PLATELET COUNT 200 10^3/uL (134-434); RBC 4.59 M/mm3 (4.00-5.60); RDW 14.6 % (11.9-15.9); WHITE BLOOD COUNT 10.7 K/mm3 (4.0-10.0)
[2024-06-03] MEDS ORDERED: morphine CARPU-JECT 2 MG/1 ML DISP.SYRIN IVPUSH PRN (14:09)
[2024-06-03] MEDS: DOCUSATE SODIUM 100 MG CAPSULE (FP) PO ONE (17:20)
[2024-06-03] MEDS: CEFTRIAXONE 2 GM-D5W BAG 2 GM/50 ML BAG IVPB SCH (18:12)
[2024-06-03] MEDS: oxyCODONE HCL 5 MG TABLET PO PRN (18:21)
[2024-06-03] MEDS: ENOXAPARIN NA (PORCINE) 100 MG/1 ML DISP.SYRIN SQ SCH (21:17)
[2024-06-03] MEDS: DOCUSATE SODIUM 100 MG CAPSULE (FP) PO SCH (21:17)
[2024-06-04 10:39] LABS: BASO % 0.6 % (0-2.0); HEMATOCRIT 39.4 % (35.4-49); HEMOGLOBIN 12.6 GM/dL (11.7-16.9); LYMPH % 19.5 % (8-40); MCH 28.3 pg (25.7-33.7); MCHC 32.1 g/dl (32.0-35.9); MEAN PLT VOLUME 8.1 fl (7.5-11.1); MONO % 9.6 % (3.8-10.2); NEUT % 69.3 % (42.8-82.8); PLATELET COUNT 194 10^3/uL (134-434); RBC 4.47 M/mm3 (4.00-5.60); RDW 14.7 % (11.9-15.9); WHITE BLOOD COUNT 9.6 K/mm3 (4.0-10.0)
[2024-06-05 09:24] LABS: BASO % 0.8 % (0-2.0); EOS % 0.9 % (0-4.5); HEMATOCRIT 40.3 % (35.4-49); HEMOGLOBIN 12.9 GM/dL (11.7-16.9); MCHC 32.1 g/dl (32.0-35.9); MEAN CELL VOLUME 87.2 fl (80-96); MEAN PLT VOLUME 8.1 fl (7.5-11.1); MONO % 7.8 % (3.8-10.2); NEUT % 70.5 % (42.8-82.8); PLATELET COUNT 223 10^3/uL (134-434); RBC 4.62 M/mm3 (4.00-5.60); RDW 14.6 % (11.9-15.9); WHITE BLOOD COUNT 8.6 K/mm3 (4.0-10.0)
[2024-06-06 09:46] VITALS: RESP 20
[2024-06-06 13:45] VITALS: BP 116/65; PULSE 58; TEMP 97.5
== END 2024-06-06 14:20 | disposition home or self-care (01) | DRG 617 ==
LOC: JER 08:12 → JERBED 11:34 → J6S 23:58
PROVIDERS: ADMIT Internal Medicine; ATTEND Internal Medicine
PROC: 0QBR0ZX Excision of Left Toe Phalanx, Open Approach, Diagnostic (ICD-10-PCS; 2024-06-02)
PROC: 3E0102A Introduction of Anti-Infective Envelope into Subcutaneous Tissue, Open Approach (ICD-10-PCS; 2024-06-02)
PROC: 0Y6S0Z2 Detachment at Left 2nd Toe, Mid, Open Approach (ICD-10-PCS; principal; 2024-06-02 15:30)
DX: E10.69 Type 1 diabetes mellitus with other specified complication (principal); I48.20 Chronic atrial fibrillation, unspecified; L97.528 Non-pressure chronic ulcer of other part of left foot with other specified severity; M86.8X7 Other osteomyelitis, ankle and foot; B95.7 Other staphylococcus as the cause of diseases classified elsewhere; E10.40 Type 1 diabetes mellitus with diabetic neuropathy, unspecified; Z89.412 Acquired absence of left great toe; Z89.411 Acquired absence of right great toe; E78.5 Hyperlipidemia, unspecified; I10 Essential (primary) hypertension; N17.9 Acute kidney failure, unspecified; E66.9 Obesity, unspecified; Z68.35 Body mass index [BMI] 35.0-35.9, adult; E10.621 Type 1 diabetes mellitus with foot ulcer; E10.51 Type 1 diabetes mellitus with diabetic peripheral angiopathy without gangrene
CPT/HCPCS: 36415; 73630-TC-LT; 73718-TC-LT; 75635-TC; 80048; 80053; 82962; 83735; 84100; 85025; 85610; 85651; 85730; 86140; 86850; 86900; 86901; 87070; 87075; 87186; 87205; 88304-TC; 88305-TC; 88311-TC; 93922; 93925-TC; 94760; 99285-25; C1713; Q9967

== ENCOUNTER 2024-09-27 08:16 | Inpatient (IN) | payer BC ==
[2024-09-27 09:47] LABS: ABSOLUTE IMMATURE GRANULOCYTES 0.02 x10^3/uL (0.0-0.031); BASOPHILS # 0.04 x10^3/uL (0.01-0.08); EOSINOPHIL % 0.9 % (0.8-7.0); EOSINOPHILS # 0.07 x10^3/uL (0.04-0.54); HEMATOCRIT 40.3 % (40.1-51.0); HEMOGLOBIN 13.1 g/dL (13.7-17.5); MCHC 32.5 g/dl (32.3-36.5); MEAN CELL VOLUME 87.6 fl (79.0-92.2); MEAN PLT VOLUME 9.8 fl (9.4-12.4); MONOCYTE # 0.67 x10^3/uL (0.30-0.82); MONOCYTE % 8.9 % (5.3-12.2); PLATELET COUNT 216 x10^3/uL (163-337); RDW 13.8 % (12.2-16.4)
[2024-09-27 09:54] LABS: INR 1.15 (0.83-1.09); PROTHROMBIN TIME (PATIENT) 12.7 SEC (9.7-13.0)
[2024-09-27 09:57] LABS: ACTIVATED PTT 31.4 SECONDS (25.2-36.5)
[2024-09-27 10:17] LABS: POTASSIUM 4.1 mmol/L (3.5-5.1)
[2024-09-27 10:19] LABS: ALBUMIN 3.9 g/dl (3.4-5.0); BLOOD UREA NITROGEN 20.5 mg/dL (7-18)
[2024-09-27 10:22] LABS: CREATININE 1.5 mg/dL (0.55-1.3)
[2024-09-27 10:24] LABS: BILIRUBIN,TOTAL 0.9 mg/dL (0.2-1)
[2024-09-27] MEDS: LACTATED RINGERS SOLUTION 1000 ML INFUS.BAG IV ONE (10:34)
[2024-09-27 10:42] LABS: TOT PROT 8.3 g/dl (6.4-8.2)
[2024-09-27] MEDS ORDERED: GABAPENTIN 400 MG CAPSULE ONE (14:08)
[2024-09-27] MEDS: GABAPENTIN 400 MG CAPSULE PO SCH (14:14)
[2024-09-27] MEDS: LACTATED RINGERS SOLUTION 1,000 ML/1,000 ML INFUS.BAG IV SCH (14:25)
[2024-09-27 16:55] VITALS: BMI 36.1
[2024-09-27] MEDS: ATORVASTATIN CA 10 MG TABLET (FP) PO SCH (21:25)
[2024-09-28 07:32] LABS: ABSOLUTE IMMATURE GRANULOCYTES 0.01 x10^3/uL (0.0-0.031); BASOPHILS # 0.04 x10^3/uL (0.01-0.08); EOSINOPHIL % 1.4 % (0.8-7.0); EOSINOPHILS # 0.09 x10^3/uL (0.04-0.54); HEMOGLOBIN 12.6 g/dL (13.7-17.5); MCHC 32.3 g/dl (32.3-36.5); MEAN CELL VOLUME 86.3 fl (79.0-92.2); MEAN PLT VOLUME 10.1 fl (9.4-12.4); MONOCYTE # 0.71 x10^3/uL (0.30-0.82); MONOCYTE % 11.3 % (5.3-12.2); PLATELET COUNT 197 x10^3/uL (163-337); RDW 13.5 % (12.2-16.4)
[2024-09-28 07:58] LABS: BLOOD UREA NITROGEN 17.3 mg/dL (7-18); CALCIUM 9.7 mg/dL (8.5-10.1)
[2024-09-28 08:01] LABS: CREATININE 1.2 mg/dL (0.55-1.3)
[2024-09-28] MEDS ORDERED: LOSARTAN POTASSIUM 25 MG TABLET PO SCH (10:00)
[2024-09-28] MEDS: amLODIPine BESYLATE 5 MG TABLET (FP) PO SCH (10:16)
[2024-09-28] MEDS ORDERED: LIDOCAINE HCL 1%, 10 MG/ML (20ML VIAL) ONE (11:22)
[2024-09-28] MEDS ORDERED: BUPIVACAINE HCL/PF 0.5% (5MG/ML) 10 ML VIAL ONE (11:22)
[2024-09-28] MEDS ORDERED: PROPOFOL 20 ML ONE (12:12)
[2024-09-28] MEDS ORDERED: MIDAZOLAM HCL 2 MG/2 ML SINGLE DOSE VIAL ONE (12:12)
[2024-09-28] MEDS ORDERED: ONDANSETRON 4 MG/2 ML VIAL IVPUSH PRN (13:01)
[2024-09-28] MEDS: LACTATED RINGERS SOLUTION 1,000 ML IV SCH (13:54)
[2024-09-28] MEDS: GABAPENTIN 400 MG CAPSULE PO SCH (14:45)
[2024-09-28] MEDS: CEFTRIAXONE 2 GM-D5W BAG 2 GM/50 ML BAG IVPB SCH (18:25)
[2024-09-28] MEDS: traMADol HCL 50 MG TABLET PO ONE (21:52)
[2024-09-28] MEDS: ATORVASTATIN CA 10 MG TABLET (FP) PO SCH (21:53)
[2024-09-28] MEDS: morphine SULFATE 4 MG/ML VIAL IVPUSH ONE (22:15)
[2024-09-29 07:48] LABS: ABSOLUTE IMMATURE GRANULOCYTES 0.02 x10^3/uL (0.0-0.031); BASOPHILS # 0.05 x10^3/uL (0.01-0.08); EOSINOPHIL % 1.2 % (0.8-7.0); HEMATOCRIT 39.8 % (40.1-51.0); MCHC 32.7 g/dl (32.3-36.5); MEAN CELL VOLUME 86.9 fl (79.0-92.2); MEAN PLT VOLUME 10.4 fl (9.4-12.4); MONOCYTE # 0.73 x10^3/uL (0.30-0.82); PLATELET COUNT 198 x10^3/uL (163-337); RDW 13.7 % (12.2-16.4)
[2024-09-29 08:04] LABS: POTASSIUM 3.8 mmol/L (3.5-5.1)
[2024-09-29 08:06] LABS: ALBUMIN 3.5 g/dl (3.4-5.0); BLOOD UREA NITROGEN 18.5 mg/dL (7-18); CALCIUM 9.4 mg/dL (8.5-10.1)
[2024-09-29 08:07] LABS: MAGNESIUM 1.6 mg/dL (1.8-2.4)
[2024-09-29 08:10] LABS: CREATININE 1.4 mg/dL (0.55-1.3)
[2024-09-29 08:11] LABS: BILIRUBIN,TOTAL 0.6 mg/dL (0.2-1); TOT PROT 7.4 g/dl (6.4-8.2)
[2024-09-29] MEDS: amLODIPine BESYLATE 5 MG TABLET (FP) PO SCH (09:47)
[2024-09-29] MEDS: MAGNESIUM OXIDE 400 MG TABLET (FP) PO ONE (09:47)
[2024-09-29] MEDS ORDERED: traMADol HCL 50 MG TABLET PO PRN (11:37)
[2024-09-29] MEDS ORDERED: POLYETHYLENE GLYCOL (HEALTHYLAX) 3350 17 GM PACKET PO PRN (13:06)
[2024-09-29] MEDS ORDERED: INSULIN ASPART SLIDING SCALE (NOVOLOG) 1 VIAL SQ SCH (16:30)
[2024-09-29] MEDS: BISACODYL 5 MG TABLET.DR (FP) PO PRN (16:57)
[2024-09-29] MEDS: VANCOMYCIN HCL IN 5 % DEXTROSE 1,500 MG/300 ML BAG IVPB ONE (17:17)
[2024-09-30 08:35] LABS: ABSOLUTE IMMATURE GRANULOCYTES 0.03 x10^3/uL (0.0-0.031); BASOPHILS # 0.05 x10^3/uL (0.01-0.08); EOSINOPHIL % 1.1 % (0.8-7.0); HEMATOCRIT 42.2 % (40.1-51.0); HEMOGLOBIN 13.5 g/dL (13.7-17.5); MEAN CELL VOLUME 86.8 fl (79.0-92.2); MEAN PLT VOLUME 10.2 fl (9.4-12.4); MONOCYTE # 0.79 x10^3/uL (0.30-0.82); MONOCYTE % 8.8 % (5.3-12.2); PLATELET COUNT 199 x10^3/uL (163-337); RDW 13.5 % (12.2-16.4)
[2024-09-30 09:34] LABS: POTASSIUM 4.5 mmol/L (3.5-5.1)
[2024-09-30 09:36] LABS: ALBUMIN 3.5 g/dl (3.4-5.0); BLOOD UREA NITROGEN 18.5 mg/dL (7-18); CALCIUM 9.5 mg/dL (8.5-10.1)
[2024-09-30 09:40] LABS: CREATININE 1.3 mg/dL (0.55-1.3)
[2024-09-30 09:41] LABS: BILIRUBIN,TOTAL 0.4 mg/dL (0.2-1); TOT PROT 7.8 g/dl (6.4-8.2)
[2024-09-30] MEDS: VANCOMYCIN/WATER 1250 MG 1,250 MG/250 ML BAG IVPB ONE (13:11)
[2024-09-30] MEDS: RIVAROXABAN 20 MG TABLET PO SCH (17:56)
[2024-10-01 07:39] LABS: ABSOLUTE IMMATURE GRANULOCYTES 0.03 x10^3/uL (0.0-0.031); BASOPHILS # 0.07 x10^3/uL (0.01-0.08); EOSINOPHIL % 1.3 % (0.8-7.0); HEMATOCRIT 41.8 % (40.1-51.0); MCHC 31.1 g/dl (32.3-36.5); MEAN CELL VOLUME 88.6 fl (79.0-92.2); PLATELET COUNT 186 x10^3/uL (163-337); RDW 13.6 % (12.2-16.4)
[2024-10-01 07:59] LABS: POTASSIUM 4.5 mmol/L (3.5-5.1)
[2024-10-01 08:05] LABS: CALCIUM 9.4 mg/dL (8.5-10.1)
[2024-10-01 08:06] LABS: ALBUMIN 3.8 g/dl (3.4-5.0); MAGNESIUM 1.9 mg/dL (1.8-2.4)
[2024-10-01 08:09] LABS: CREATININE 1.3 mg/dL (0.55-1.3)
[2024-10-01 08:10] LABS: BILIRUBIN,TOTAL 0.5 mg/dL (0.2-1); TOT PROT 8.1 g/dl (6.4-8.2)
[2024-10-02 08:21] LABS: HEMATOCRIT 41.3 % (40.1-51.0); HEMOGLOBIN 13.2 g/dL (13.7-17.5); MEAN CELL VOLUME 88.1 fl (79.0-92.2); MEAN PLT VOLUME 10.3 fl (9.4-12.4); PLATELET COUNT 199 x10^3/uL (163-337); RDW 13.5 % (12.2-16.4)
[2024-10-02 08:48] LABS: POTASSIUM 4.3 mmol/L (3.5-5.1)
[2024-10-02 08:58] LABS: ALBUMIN 3.6 g/dl (3.4-5.0); BLOOD UREA NITROGEN 20.8 mg/dL (7-18); CALCIUM 8.9 mg/dL (8.5-10.1)
[2024-10-02 09:00] LABS: MAGNESIUM 1.8 mg/dL (1.8-2.4)
[2024-10-02 09:01] LABS: CREATININE 1.4 mg/dL (0.55-1.3)
[2024-10-02 09:03] LABS: BILIRUBIN,TOTAL 0.4 mg/dL (0.2-1); TOT PROT 7.9 g/dl (6.4-8.2)
[2024-10-03 02:05] VITALS: RESP 18
[2024-10-03 07:23] LABS: HEMATOCRIT 43.3 % (40.1-51.0); HEMOGLOBIN 13.5 g/dL (13.7-17.5); MCHC 31.2 g/dl (32.3-36.5); MEAN CELL VOLUME 89.8 fl (79.0-92.2); MEAN PLT VOLUME 10.1 fl (9.4-12.4); PLATELET COUNT 206 x10^3/uL (163-337); RDW 14.1 % (12.2-16.4)
[2024-10-03 07:44] LABS: POTASSIUM 4.6 mmol/L (3.5-5.1)
[2024-10-03 08:09] LABS: ALBUMIN 3.9 g/dl (3.4-5.0); BLOOD UREA NITROGEN 18.8 mg/dL (7-18); CALCIUM 9.3 mg/dL (8.5-10.1); MAGNESIUM 2.2 mg/dL (1.8-2.4)
[2024-10-03 08:11] LABS: CREATININE 1.3 mg/dL (0.55-1.3)
[2024-10-03 08:12] LABS: TOT PROT 8.5 g/dl (6.4-8.2)
[2024-10-03 08:13] LABS: BILIRUBIN,TOTAL 0.4 mg/dL (0.2-1)
[2024-10-03 22:46] VITALS: TEMP 97.7
[2024-10-04 07:17] VITALS: BP 139/79; PULSE 56
== END 2024-10-04 09:45 | disposition home or self-care (01) | DRG 617 ==
LOC: JER 08:16 → JERBED 09:08 → J7W 15:40 → OBSVTOIN 09-29 10:14
PROVIDERS: ADMIT Internal Medicine; ATTEND Physician Assistant
PROC: 0Y6U0Z0 Detachment at Left 3rd Toe, Complete, Open Approach (ICD-10-PCS; principal; 2024-09-29)
PROC: 0QBP3ZX Excision of Left Metatarsal, Percutaneous Approach, Diagnostic (ICD-10-PCS; 2024-09-29)
DX: E11.69 Type 2 diabetes mellitus with other specified complication (principal); M86.8X7 Other osteomyelitis, ankle and foot; E78.00 Pure hypercholesterolemia, unspecified; I48.91 Unspecified atrial fibrillation; E11.51 Type 2 diabetes mellitus with diabetic peripheral angiopathy without gangrene; R79.89 Other specified abnormal findings of blood chemistry; K59.00 Constipation, unspecified; E11.40 Type 2 diabetes mellitus with diabetic neuropathy, unspecified; I12.9 Hypertensive chronic kidney disease with stage 1 through stage 4 chronic kidney disease, or unspecified chronic kidney disease; E11.22 Type 2 diabetes mellitus with diabetic chronic kidney disease; N18.31 Chronic kidney disease, stage 3a; E83.42 Hypomagnesemia; Z89.422 Acquired absence of other left toe(s); E66.9 Obesity, unspecified; Z68.36 Body mass index [BMI] 36.0-36.9, adult
CPT/HCPCS: 36415; 73630-TC-LT; 80048; 80053; 82962; 83735; 85025; 85027; 85610; 85730; 86850; 86900; 86901; 87040; 87070; 87075; 88305-TC; 88311-TC; 93005; 93010; 94760; 99285-25; G0378

== ENCOUNTER 2025-03-03 12:45 | Inpatient (IN) | payer BC ==
[2025-03-03 12:56] VITALS: BMI 34.9
[2025-03-03] MEDS ORDERED: VANCOMYCIN 1 GM PREMIX (F) 1 GM/200 ML BAG ONE (14:05)
[2025-03-03] MEDS ORDERED: ACETAMINOPHEN INJECTION 100 ML ONE (14:05)
[2025-03-03] MEDS ORDERED: PIPERACILLIN/TAZOB 4.5 GM 4.5 GM/100 ML BAG IVPB ONE (14:05)
[2025-03-03 15:26] LABS: ABSOLUTE IMMATURE GRANULOCYTES 0.02 x10^3/uL (0.0-0.031); BASOPHILS # 0.02 x10^3/uL (0.01-0.08); EOSINOPHIL % 0.7 % (0.8-7.0); EOSINOPHILS # 0.06 x10^3/uL (0.04-0.54); MCHC 32.5 g/dl (32.3-36.5); MEAN CELL VOLUME 87.7 fl (79.0-92.2); MEAN PLT VOLUME 9.9 fl (9.4-12.4); MONOCYTE # 1.00 x10^3/uL (0.30-0.82); MONOCYTE % 12.3 % (5.3-12.2); RDW 14.0 % (12.2-16.4)
[2025-03-03 15:33] LABS: INR 2.96 (0.83-1.09); PROTHROMBIN TIME (PATIENT) 32.6 SEC (9.7-13.0)
[2025-03-03 15:36] LABS: ACTIVATED PTT 44.9 SECONDS (25.2-36.5)
[2025-03-03] MEDS: SODIUM CHLORIDE 0.9% 500 ML INFUS.BAG IV ONE (15:36)
[2025-03-03] MEDS: ACETAMINOPHEN 1000 MG/100 ML BAG IVPB ONE (15:37)
[2025-03-03 15:43] LABS: GLUCOSE,RANDOM 75.0 mg/dL (74-106)
[2025-03-03 15:44] LABS: TOT PROT 7.4 g/dl (6.4-8.2)
[2025-03-03 15:45] LABS: CO2 23.0 mmol/L (21-32)
[2025-03-03 15:46] LABS: ALK PHOS 72.0 U/L (40-150)
[2025-03-03 15:49] LABS: CREATININE 1.39 mg/dL (0.55-1.3); SGOT/AST 27.0 U/L (5-34); SGPT/ALT 15.0 U/L (0-55)
[2025-03-03] MEDS: PIPERACILLIN/TAZOB 4.5 GM 4.5 GM in DEXTROSE 5%-WATER 100 ML IVPB ONE (15:49)
[2025-03-03 16:00] LABS: ERYTHROCYTE SEDIMENTATION RATE 35 mm/hr (0-20)
[2025-03-03 16:10] LABS: HCV DIAGNOSTIC IN-HOUSE W/RFLX NON-REACTIVE (NONREACTIVE)
[2025-03-03] MEDS: VANCOMYCIN 1,000 MG in DEXTROSE 5%-WATER - 250 ML IVPB ONE (16:33)
[2025-03-03] MEDS: COLLAGENASE CLOSTRIDIUM HIST. 30 GRAMS TUBE TP SCH (17:06)
[2025-03-03] MEDS ORDERED: ACETAMINOPHEN 500 MG TABLET (FP) PO PRN (17:19)
[2025-03-03 18:24] LABS: HIV INTERPRETATION NEGATIVE (NEGATIVE)
[2025-03-03] MEDS: GABAPENTIN 400 MG CAPSULE PO SCH (21:53)
[2025-03-03] MEDS: ATORVASTATIN CA 10 MG TABLET (FP) PO SCH (21:53)
[2025-03-03] MEDS: PIPERACILLIN/TAZOB 4.5 GM 4.5 GM in DEXTROSE 5%-WATER 100 ML IVPB SCH (21:53)
[2025-03-03] MEDS ORDERED: PIPERACILLIN/TAZOB 4.5 GM 4.5 GM in DEXTROSE 5%-WATER 100 ML IVPB SCH (22:00)
[2025-03-04] MEDS: VANCOMYCIN HCL 1,500 MG in DEXTROSE 5%-WATER - 250 ML IVPB SCH (06:19)
[2025-03-04] MEDS: VANCOMYCIN HCL IN 5 % DEXTROSE 1,500 MG/300 ML BAG IVPB SCH (06:50)
[2025-03-04 09:14] LABS: ABSOLUTE IMMATURE GRANULOCYTES 0.02 x10^3/uL (0.0-0.031); BASOPHILS # 0.04 x10^3/uL (0.01-0.08); EOSINOPHIL % 0.8 % (0.8-7.0); EOSINOPHILS # 0.06 x10^3/uL (0.04-0.54); MCHC 32.2 g/dl (32.3-36.5); MEAN CELL VOLUME 87.6 fl (79.0-92.2); MEAN PLT VOLUME 10.0 fl (9.4-12.4); MONOCYTE # 0.65 x10^3/uL (0.30-0.82); MONOCYTE % 9.2 % (5.3-12.2); RDW 14.0 % (12.2-16.4)
[2025-03-04 09:39] LABS: GLUCOSE,RANDOM 106.0 mg/dL (74-106)
[2025-03-04 09:40] LABS: CO2 21.0 mmol/L (21-32)
[2025-03-04 09:44] LABS: CREATININE 1.26 mg/dL (0.55-1.3)
[2025-03-04] MEDS: LOSARTAN POTASSIUM 50 MG TABLET PO SCH (10:51)
[2025-03-04] MEDS: amLODIPine BESYLATE 5 MG TABLET (FP) PO SCH (10:51)
[2025-03-04] MEDS: ENOXAPARIN NA (PORCINE) 100 MG/1 ML DISP.SYRIN SQ SCH (10:51)
[2025-03-04] MEDS: VANCOMYCIN/WATER FOR INJ (PEG) 1,000 MG/200 ML BAG IVPB SCH (18:00)
[2025-03-05] MEDS ORDERED: DEXTROSE 50%-WATER - 25 GM/50 ML VIAL IVPUSH PRN (07:38)
[2025-03-05 09:43] LABS: ABSOLUTE IMMATURE GRANULOCYTES 0.03 x10^3/uL (0.0-0.031); BASOPHILS # 0.04 x10^3/uL (0.01-0.08); EOSINOPHIL % 0.6 % (0.8-7.0); EOSINOPHILS # 0.04 x10^3/uL (0.04-0.54); MCHC 32.3 g/dl (32.3-36.5); MEAN CELL VOLUME 87.8 fl (79.0-92.2); MEAN PLT VOLUME 10.3 fl (9.4-12.4); MONOCYTE # 0.62 x10^3/uL (0.30-0.82); MONOCYTE % 9.4 % (5.3-12.2); RDW 13.9 % (12.2-16.4)
[2025-03-05 10:20] LABS: CO2 20.0 mmol/L (21-32); TOT PROT 6.9 g/dl (6.4-8.2)
[2025-03-05 10:22] LABS: ALK PHOS 62.0 U/L (40-150); ERYTHROCYTE SEDIMENTATION RATE 24 mm/hr (0-20)
[2025-03-05 10:25] LABS: CREATININE 1.24 mg/dL (0.55-1.3); LDL CHOLESTEROL (ONLY SJRH) 58.0 mg/dL (5-100); SGOT/AST 26.0 U/L (5-34); SGPT/ALT 15.0 U/L (0-55)
[2025-03-05 11:00] LABS: GLUCOSE,RANDOM 193.0 mg/dL (74-106)
[2025-03-05] MEDS: MAGNESIUM SULF 50% (8.12 MEQ/2 ML-1 GM VIAL) IVPB ONE (12:23)
[2025-03-06 08:56] LABS: ABSOLUTE IMMATURE GRANULOCYTES 0.04 x10^3/uL (0.0-0.031); BASOPHILS # 0.04 x10^3/uL (0.01-0.08); EOSINOPHIL % 0.9 % (0.8-7.0); EOSINOPHILS # 0.06 x10^3/uL (0.04-0.54); MCHC 31.9 g/dl (32.3-36.5); MEAN CELL VOLUME 87.5 fl (79.0-92.2); MEAN PLT VOLUME 10.5 fl (9.4-12.4); MONOCYTE # 0.76 x10^3/uL (0.30-0.82); MONOCYTE % 10.8 % (5.3-12.2); RDW 13.9 % (12.2-16.4)
[2025-03-06 09:22] LABS: GLUCOSE,RANDOM 130.0 mg/dL (74-106)
[2025-03-06 09:24] LABS: CO2 21.0 mmol/L (21-32)
[2025-03-06 09:28] LABS: CREATININE 1.19 mg/dL (0.55-1.3)
[2025-03-06] MEDS: BISACODYL 5 MG TABLET.DR (FP) PO ONE (12:56)
[2025-03-06] MEDS: VANCOMYCIN/WATER 1250 MG 1,250 MG/250 ML BAG IVPB SCH (18:37)
[2025-03-07] MEDS: DOCUSATE SODIUM 100 MG CAPSULE (FP) PO ONE (05:54)
[2025-03-07] MEDS: BISACODYL 5 MG TABLET.DR (FP) PO ONE (06:18)
[2025-03-08 08:34] LABS: MCHC 32.0 g/dl (32.3-36.5); MEAN CELL VOLUME 88.8 fl (79.0-92.2); MEAN PLT VOLUME 10.5 fl (9.4-12.4); RDW 14.3 % (12.2-16.4)
[2025-03-08 08:49] LABS: GLUCOSE,RANDOM 260.0 mg/dL (74-106)
[2025-03-08 08:50] LABS: CO2 22.0 mmol/L (21-32); INR 1.08 (0.83-1.09); PROTHROMBIN TIME (PATIENT) 11.8 SEC (9.7-13.0)
[2025-03-08 08:54] LABS: CREATININE 1.13 mg/dL (0.55-1.3)
[2025-03-08] MEDS: ENOXAPARIN NA (PORCINE) 100 MG/1 ML DISP.SYRIN SQ ONE (11:16)
[2025-03-08] MEDS ORDERED: DEXTROSE 50%-WATER 25 GM/50 ML DISP.SYRIN IVPUSH PRN (23:31)
[2025-03-09] MEDS ORDERED: LIDOCAINE HCL 1%, 10 MG/ML (20ML VIAL) ONE (07:36)
[2025-03-09] MEDS ORDERED: GENTAMICIN SO4 80 MG/2 ML VIAL ONE (07:36)
[2025-03-09] MEDS ORDERED: BUPIVACAINE HCL/PF 0.5% (5MG/ML) 10 ML VIAL ONE (07:37)
[2025-03-09 07:47] LABS: ABSOLUTE IMMATURE GRANULOCYTES 0.05 x10^3/uL (0.0-0.031); BASOPHILS # 0.05 x10^3/uL (0.01-0.08); EOSINOPHIL % 0.7 % (0.8-7.0); EOSINOPHILS # 0.06 x10^3/uL (0.04-0.54); MCHC 32.2 g/dl (32.3-36.5); MEAN CELL VOLUME 87.7 fl (79.0-92.2); MEAN PLT VOLUME 10.6 fl (9.4-12.4); MONOCYTE # 0.59 x10^3/uL (0.30-0.82); MONOCYTE % 7.1 % (5.3-12.2); RDW 14.3 % (12.2-16.4)
[2025-03-09 08:16] LABS: GLUCOSE,RANDOM 183.0 mg/dL (74-106); TOT PROT 7.4 g/dl (6.4-8.2)
[2025-03-09 08:18] LABS: CO2 19.0 mmol/L (21-32)
[2025-03-09 08:19] LABS: ALK PHOS 70.0 U/L (40-150)
[2025-03-09 08:22] LABS: CREATININE 1.08 mg/dL (0.55-1.3); SGOT/AST 37.0 U/L (5-34); SGPT/ALT 33.0 U/L (0-55)
[2025-03-09] MEDS ORDERED: DEXAMETHASONE SOD PHOSPHATE 4 MG/1 ML VIAL ONE (09:00)
[2025-03-09] MEDS ORDERED: THROMBIN (BOVINE) 5,000 UNIT VIAL TP ONE (09:01)
[2025-03-09] MEDS ORDERED: DEXTROSE 50%-WATER 25 GM/50 ML DISP.SYRIN IVPUSH PRN (09:29)
[2025-03-09] MEDS ORDERED: ACETAMINOPHEN 500 MG TABLET (FP) PO PRN (09:29)
[2025-03-09] MEDS ORDERED: LACTATED RINGERS SOLUTION 1,000 ML IV SCH ×2 (09:30)
[2025-03-09 09:52] LABS: ABSOLUTE IMMATURE GRANULOCYTES 0.05 x10^3/uL (0.0-0.031); BASOPHILS # 0.04 x10^3/uL (0.01-0.08); EOSINOPHIL % 0.9 % (0.8-7.0); EOSINOPHILS # 0.08 x10^3/uL (0.04-0.54); MCHC 32.2 g/dl (32.3-36.5); MEAN CELL VOLUME 87.7 fl (79.0-92.2); MEAN PLT VOLUME 9.9 fl (9.4-12.4); MONOCYTE # 0.68 x10^3/uL (0.30-0.82); MONOCYTE % 7.8 % (5.3-12.2); RDW 14.2 % (12.2-16.4)
[2025-03-09 09:59] LABS: INR 1.08 (0.83-1.09); PROTHROMBIN TIME (PATIENT) 11.9 SEC (9.7-13.0)
[2025-03-09] MEDS: amLODIPine BESYLATE 5 MG TABLET (FP) PO SCH (10:49)
[2025-03-09] MEDS: LOSARTAN POTASSIUM 50 MG TABLET PO SCH (10:49)
[2025-03-09] MEDS: GABAPENTIN 400 MG CAPSULE PO SCH (14:28)
[2025-03-09] MEDS: MAGNESIUM 2GM/50ML STERILE WATER IVPB IVPB ONE (15:31)
[2025-03-09] MEDS: INSULIN ASPART SLIDING SCALE (NOVOLOG) 1 VIAL SQ SCH (16:52)
[2025-03-09] MEDS: VANCOMYCIN/WATER 1250 MG 1,250 MG/250 ML BAG IVPB SCH (17:53)
[2025-03-09] MEDS: INSULIN GLARGINE (LANTUS) 100 UNITS/ML UNITS SQ SCH (21:13)
[2025-03-09] MEDS: ENOXAPARIN NA (PORCINE) 100 MG/1 ML DISP.SYRIN SQ SCH (21:15)
[2025-03-09] MEDS: ATORVASTATIN CA 10 MG TABLET (FP) PO SCH (21:15)
[2025-03-10] MEDS: morphine CARPU-JECT 2 MG/1 ML DISP.SYRIN IVPUSH PRN (02:53)
[2025-03-10 08:09] LABS: ABSOLUTE IMMATURE GRANULOCYTES 0.05 x10^3/uL (0.0-0.031); BASOPHILS # 0.06 x10^3/uL (0.01-0.08); EOSINOPHIL % 0.7 % (0.8-7.0); EOSINOPHILS # 0.07 x10^3/uL (0.04-0.54); MCHC 31.9 g/dl (32.3-36.5); MEAN CELL VOLUME 88.0 fl (79.0-92.2); MEAN PLT VOLUME 10.6 fl (9.4-12.4); MONOCYTE # 0.72 x10^3/uL (0.30-0.82); MONOCYTE % 7.5 % (5.3-12.2); RDW 14.4 % (12.2-16.4)
[2025-03-10 08:39] LABS: GLUCOSE,RANDOM 271.0 mg/dL (74-106)
[2025-03-10 08:40] LABS: CO2 21.0 mmol/L (21-32)
[2025-03-10 08:45] LABS: CREATININE 1.04 mg/dL (0.55-1.3)
[2025-03-10 14:49] VITALS: RESP 18
[2025-03-10] MEDS ORDERED: INSULIN (NOVOLOG) ASPART 100 UNITS/ML 10ML VIAL SQ SCH (16:30)
[2025-03-10] MEDS: MAGNESIUM 2GM/50ML STERILE WATER IVPB IVPB ONE (18:19)
[2025-03-10] MEDS: DOXYCYCLINE HYCLATE 100 MG TABLET PO SCH (18:19)
[2025-03-10] MEDS: BISACODYL 5 MG TABLET.DR (FP) PO ONE (20:02)
[2025-03-10] MEDS: INSULIN GLARGINE (LANTUS) 100 UNITS/ML UNITS SQ SCH (21:46)
[2025-03-11] MEDS: INSULIN GLARGINE (LANTUS) 100 UNITS/ML UNITS SQ SCH (07:00)
[2025-03-11 07:27] VITALS: BP 179/89; PULSE 56; TEMP 98.1
== END 2025-03-11 13:02 | disposition home or self-care (01) | DRG 617 ==
LOC: JER 12:45 → JERBED 14:40 → J6S 18:42
PROVIDERS: ADMIT Internal Medicine; ATTEND Internal Medicine
PROC: 0Y6W0Z0 Detachment at Left 4th Toe, Complete, Open Approach (ICD-10-PCS; principal; 2025-03-09 08:30)
DX: E11.69 Type 2 diabetes mellitus with other specified complication (principal); E87.1 Hypo-osmolality and hyponatremia; M86.172 Other acute osteomyelitis, left ankle and foot; E11.42 Type 2 diabetes mellitus with diabetic polyneuropathy; E83.42 Hypomagnesemia; I48.91 Unspecified atrial fibrillation; E78.5 Hyperlipidemia, unspecified; I10 Essential (primary) hypertension; E11.65 Type 2 diabetes mellitus with hyperglycemia
CPT/HCPCS: 36415; 73630-TC-LT; 73718-TC-LT; 80048; 80053; 80061; 82962; 83036; 83735; 84100; 85025; 85027; 85610; 85651; 85730; 86140; 86803; 86850; 86900; 86901; 87070; 87205; 87389; 88305-TC; 88311-TC; 93005; 93010; 93922; 93926-TC; 94760; 99285-25; A6260; G0463-25; G0480